=== PATIENT | male | born 1975 | race Caucasian/White ===

== ENCOUNTER 2017-07-28 20:05 | Inpatient (IN) | payer MEDICAID ==
[~2017-07-28] VITALS: Ht 195.6 cm; Wt 109.3 kg
[~2017-07-28 20:05] MED LIST: ALDACTONE50 MG ORAL; AMITRIPTYLINE25 MG ORAL; ATIVAN1 MG ORAL; CLARITIN10 M2 ORAL; CLARITIN5 MG ORAL; FISH OIL500 MG PO; FOLIC ACID1 MG ORAL; IBUPROFEN400 MG ORAL; LASIX20 M1 ORAL; LEVAQUIN500 MG ORAL; MULTIVITAMINS1 EAC2 ORAL; NORCO 10/3251 EA ORAL; NORCO 5-325 TA1 EACH ORAL; PRILOSEC OTC20 MG ORAL; PRILOSEC2.5 MG ORAL; PROCHLORPERAZINE5 MG ORAL; PROTONIX40 MG ORAL; THIAMINE HCL100 MG ORAL; TYLENOL WITH C1 EACH ORAL; VITAMIN B-12100 MCG ORAL; VITAMIN B-12500 MCG ORAL; ZOFRAN4 M1 ORAL
[2017-07-28 20:20] VITALS: BP 129/84
[2017-07-28] MEDS ORDERED: Cefepime HCl 1 GM in NS 55 ML IV STA (20:27)
[2017-07-28] MEDS ORDERED: Vancomycin 1.5gm/D5W 250ml 250 ML IVPB ONE (20:30)
[2017-07-28] MEDS ORDERED: Morphine Sulfate 4mg/ml Inj IVP ONE ×2 (20:30→22:00)
[2017-07-28] MEDS ORDERED: Bacitracin Oint UD TOPIC ONE (20:30)
[2017-07-28] MEDS ORDERED: Tetanus/Diptheria/Pertussis Vaccine 0.5ml Syr IM ONE (20:30)
[2017-07-28] MEDS ORDERED: Cefepime 1gm vial ONE (20:43)
[2017-07-28 21:10] LABS: BASOPHILS % (AUTO) 1.1 % (0.0-2.0); EOSINOPHILS % (AUTO) 1.2 % (0.0-3.0); LYMPHOCYTES % (AUTO) 11.2 % (20.0-45.0); MEAN CORPUSCULAR HEMOGLOBIN 33.7 PG (27.0-31.0); MEAN CORPUSCULAR HGB CONC 34.8 G/DL (32.0-36.0); MEAN CORPUSCULAR VOLUME 97 FL (80-99); MEAN PLATELET VOLUME 8.6 FL (6.5-10.1); MONOCYTES % (AUTO) 4.9 % (1.0-10.0); NEUTROPHILS % (AUTO) 81.6 % (45.0-75.0); PLATELET COUNT 185 K/UL (150-450); RED BLOOD COUNT 4.44 M/UL (4.70-6.10); RED CELL DISTRIBUTION WIDTH 12.6 % (11.6-14.8); WHITE BLOOD COUNT 9.9 K/UL (4.8-10.8)
[2017-07-28 21:15] LABS: APPEARANCE,URINE CLEAR; KETONES,URINE 2+ (NEGATIVE); LEUKOCYTE ESTERASE ,URINE NEGATIVE (NEGATIVE); NITRITE,URINE NEGATIVE (NEGATIVE); PH,URINE 6.5 (4.5-8.0); PROTEIN,URINE NEGATIVE (NEGATIVE); UROBILINOGEN,URINE NORMAL MG/DL (0.0-1.0)
--- NOTE | 2017-07-28 21:18 | Emergency Room Report ---
History of Present Illness General Chief Complaint: Lower Extremity Injury Source: Patient Present Illness HPI The patient presents with 2-3 days of increasing pain and redness and swelling of his right third toe. He states he suffers from peripheral neuropathy. Recently increased walking secondary to his job. Apparently he had blisters that developed several days ago which seemed to be getting better. Then his toe started to hurt and get red. He denies any fevers although he does feel warm. He's felt slightly nauseated with decreased appetite. He denies diabetes. He is uncertain when his last tetanus shot was. Pain usually 5/10. Now pain 7-8/10 of affected toe, burning and aching, radiating to foot. Worse when dependent. There are lesions also of his great toes. The nails have appeared bruised stands on the right-hand side the nails been loose. Is been no drainage. He thought that he might have had a fungal infection and was using an anti-fungal [id number] agents for his nails. He wears compression stockings which also compress toes. No h/o diabetes. Had nerve conduction studies but no nerve biopsy. On gabapentin and vitamins. Also takes tylenol #3 at night due to aching pain of neuropathy. H/O cirrhosis and pancreatitis and prior alcohol abuse. No chest pain, hemoptysis, cough, NVD, dysuria, depression, other joint pain, headache. Tetanus > 10 years. 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 Reviewed Nursing Documentation: PMH: Agreed, PSxH: Agreed Nursing Documentation-PMH Hx Cardiac Problems: Yes - tachycardia Hx Hypertension: Yes Hx Pacemaker: No Hx Asthma: No Hx COPD: No Hx Diabetes: No Hx Cancer: No Hx Gastrointestinal Problems: Yes - pancreatitis 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 Hx Cerebrovascular Accident: No Hx Seizures: No Hx Peripheral Neuropathy: Yes Hx Spinal Cord Injury: Yes - JUL 13, 2012 WORK INJURY Hx Numbness: Yes - BLE Review of Systems All Other Systems: negative except mentioned in HPI Physical Exam Vital Signs Date Time Temp Pulse Resp B/P (MAP) Pulse Ox O2 Delivery O2 Flow Rate FiO2 07/28/17 20:08 99.1 108 20 129/84 98 Room Air Sp02 EP Interpretation: reviewed, normal General Appearance: well appearing, no apparent distress, GCS 15 Head: normocephalic Eyes: bilateral eye normal inspection, bilateral eye PERRL, bilateral eye other - dysconjugate gaze ENT: moist mucus membranes Neck: supple Respiratory: lungs clear, normal breath sounds Cardiovascular #1: regular rate, rhythm Cardiovascular #2: 2+ radial (R), 2+ dorsalis pedis (R), 2+ dorsalis pedis (L) Gastrointestinal: normal inspection, normal bowel sounds, non tender, no mass, non-distended Musculoskeletal: back normal, gait/station normal, normal range of motion, no calf tenderness, inflammation, swelling, tender Neurologic: alert, oriented x3, motor strength/tone normal, sensory deficit - bilateral feet Psychiatric: mood/affect normal Skin: warm/dry, other - erythema of 3rd toe with dorsal ulcer. Superficial ulcer great toe. Subungual hematomata bilateral great toes Medical Decision Making Diagnostic Impression: Primary Impression: Cellulitis of third toe, right Additional Impression: Peripheral neuropathy Qualified Codes: G62.9 - Polyneuropathy, unspecified ER Course Patient presents with painful, red and swollen R 3rd toe. DDx: cellulitis, osteo, gangrene, diabetic ulcer amongst others. Toe looks compromised and severely infected. Emergent evaluation with labs, BC, x ray. Treatment with IV hydration, analgesia and antibiotics covering MRSA and strep. Tetanus given. Xray against osteo. Labs with elevated ESR, normal WBC, glucose and renal function. Improved but still with pain. Repeat analgesia. Concern over appropriate tissue levels of antibiotics and possible overwhelming infection of toe. Patient admitted to [facility] floor, Dr. Cheng for continued antibiotics and podiatric/surgical evaluation. Laboratory Tests Test 07/28/17 20:42 07/28/17 21:00 White Blood Count 9.9 K/UL (4.8-10.8) Red Blood Count 4.44 M/UL (4.70-6.10) L Hemoglobin 14.9 G/DL (14.2-18.0) Hematocrit 42.9 % (42.0-52.0) Mean Corpuscular Volume 97 FL (80-99) Mean Corpuscular Hemoglobin 33.7 PG (27.0-31.0) H Mean Corpuscular Hemoglobin Concent 34.8 G/DL (32.0-36.0) Red Cell Distribution Width 12.6 % (11.6-14.8) Platelet Count 185 K/UL (150-450) Mean Platelet Volume 8.6 FL (6.5-10.1) Neutrophils (%) (Auto) 81.6 % (45.0-75.0) H Lymphocytes (%) (Auto) 11.2 % (20.0-45.0) L Monocytes (%) (Auto) 4.9 % (1.0-10.0) Eosinophils (%) (Auto) 1.2 % (0.0-3.0) Basophils (%) (Auto) 1.1 % (0.0-2.0) Erythrocyte Sedimentation Rate 39 MM/HR (0-15) H Prothrombin Time 10.0 SEC (9.30-11.50) Prothrombin Time INR 1.0 (0.9-1.1) PTT 35 SEC (23-33) H Sodium Level 136 MMOL/L (136-145) Potassium Level 3.9 MMOL/L (3.5-5.1) Chloride Level 98 MMOL/L (98-107) Carbon Dioxide Level 26 MMOL/L (21-32) Anion Gap 12 mmol/L (5-15) Blood Urea Nitrogen 12 mg/dL (7-18) Creatinine 1.1 MG/DL (0.55-1.30) Estimate Glomerular Filtration Rate > 60 mL/min (>60) Glucose Level 77 MG/DL (74-106) Lactic Acid Level 2.00 mmol/L (0.66-2.22) Calcium Level 9.2 MG/DL (8.5-10.1) Total Bilirubin 1.1 MG/DL (0.2-1.0) H Direct Bilirubin 0.2 MG/DL (0.0-0.3) Aspartate Amino Transferase (AST) 28 U/L (15-37) Alanine Aminotransferase (ALT) 51 U/L (12-78) Alkaline Phosphatase 58 U/L (46-116) Total Creatine Kinase 106 U/L (26-308) Troponin I 0.000 ng/mL (0.000-0.056) Total Protein 8.4 G/DL (6.4-8.2) H Albumin 4.0 G/DL (3.4-5.0) Globulin 4.4 g/dL Albumin/Globulin Ratio 0.9 (1.0-2.7) L Urine Color Yellow Urine Appearance Clear Urine pH 6.5 (4.5-8.0) Urine Specific [place] 1.010 (1.005-1.035) Urine Protein Negative (NEGATIVE) Urine Glucose (UA) Negative (NEGATIVE) Urine Ketones 2+ (NEGATIVE) H Urine Occult Blood 2+ (NEGATIVE) H Urine Nitrite Negative (NEGATIVE) Urine Bilirubin Negative (NEGATIVE) Urine Urobilinogen Normal MG/DL (0.0-1.0) Urine Leukocyte Esterase Negative (NEGATIVE) Urine RBC 0-2 /HPF (0 - 0) H Urine WBC 0-2 /HPF (0 - 0) Urine Squamous Epithelial Cells None /LPF (NONE/OCC) Urine Bacteria Occasional /HPF (NONE) EKG Diagnostic Results Rate: normal Rhythm: NSR ST Segments: no acute changes Rhythm Strip Diag. Results EP Interpretation: yes Rhythm: NSR, no PVC's, no ectopy Chest X-Ray Diagnostic Results Chest X-Ray Diagnostic Results : Chest X-Ray Ordered: Yes # of Views/Limited/Complete: 1 View Indication: Other Interpretation: no consolidation, no effusion, no pneumothorax, no acute cardiopulmonary disease Impression: No acute disease Electronically Signed by: Electronically signed by Eduin Lay MD Other X-Ray Diagnostic Results Other X-Ray Diagnostic Results : X-Ray ordered: R foot # of Views/Limited Vs Complete: 3 View Indication: Other Interpretation: no dislocation, no fractures, other - STS, no osteo Impression: Other Electronically Signed by: Electronically signed by Eduin Lay MD Last Vital Signs Date Time Temp Pulse Resp B/P (MAP) Pulse Ox O2 Delivery O2 Flow Rate FiO2 07/29/17 00:00 98.1 93 21 118/70 94 07/28/17 23:29 Room Air Status: improved Disposition: ADMITTED INPATIENT Condition: Serious Referrals: NON PHYSICIAN (PCP) Eduin Lay M.D. Jul 28, 2017 21:18
[2017-07-28 21:24] LABS: ANION GAP 12 mmol/L (5-15); CALCIUM 9.2 MG/DL (8.5-10.1); CARBON DIOXIDE 26 MMOL/L (21-32); CHLORIDE 98 MMOL/L (98-107); CREATININE 1.1 MG/DL (0.55-1.30); GLOMERULAR FILTRATION RATE > 60 mL/min (>60); POTASSIUM 3.9 MMOL/L (3.5-5.1); SODIUM 136 MMOL/L (136-145)
[2017-07-28 21:35] LABS: REFLEX LACTIC ACID YES OR NO YES
[2017-07-28 21:37] LABS: ALANINE AMINOTRANSFERASE 51 U/L (12-78); ALBUMIN/GLOBULIN RATIO 0.9 (1.0-2.7); ASPARTATE AMINO TRANSFERASE 28 U/L (15-37); TOTAL PROTEIN 8.4 G/DL (6.4-8.2)
[2017-07-28 21:38] LABS: BACTERIA,URINE OCCASIONAL /HPF; RBC,URINE 0-2 /HPF (0 - 0); WBC,URINE 0-2 /HPF (0 - 0)
[2017-07-28 21:41] LABS: BILIRUBIN,DIRECT 0.2 MG/DL (0.0-0.3)
[2017-07-28] MEDS ORDERED: Ketorolac 30mg Inj IV ONE (22:00)
[2017-07-28 22:12] LABS: ERYTHROCYTE SEDIMENTATION RATE 39 MM/HR (0-15)
[2017-07-28] MEDS ORDERED: Nitroglycerin Subl 0.4mg tab SL PRN (22:15)
[2017-07-28] MEDS ORDERED: Albuterol/Ipratropium 3ml neb HHN PRN (22:15)
[2017-07-28] MEDS ORDERED: Miralax 17gm pkt ORAL PRN (22:15)
[2017-07-28 22:27] VITALS: BP 147/78
[2017-07-28] MEDS ORDERED: GABAPENTIN100 MG ORAL (22:32)
[2017-07-29] VITALS: BP 118/70
[2017-07-29] MEDS ORDERED: Vancomycin 1 GM in D5W 275 ML IV SCH (00:30)
[2017-07-29] MEDS: Morphine Sulfate 2mg/ml Inj IVP PRN ×4 (00:33→12:47)
[2017-07-29 04:00] VITALS: BP 118/67
[2017-07-29] MEDS ORDERED: Cefepime HCl 2 GM in D5W 110 ML IV SCH (04:00)
[2017-07-29] MEDS ORDERED: Cefepime 2gm ONE (04:45)
[2017-07-29] MEDS: Vancomycin 1250mg/D5W 250ml IVPB SCH ×2 (06:06→14:10)
[2017-07-29 06:54] LABS: ALANINE AMINOTRANSFERASE 41 U/L (12-78); ALBUMIN/GLOBULIN RATIO 0.8 (1.0-2.7); ANION GAP 8 mmol/L (5-15); ASPARTATE AMINO TRANSFERASE 20 U/L (15-37); CALCIUM 8.5 MG/DL (8.5-10.1); CARBON DIOXIDE 29 MMOL/L (21-32); CHLORIDE 101 MMOL/L (98-107); CREATININE 1.1 MG/DL (0.55-1.30); GLOMERULAR FILTRATION RATE > 60 mL/min (>60); POTASSIUM 4.1 MMOL/L (3.5-5.1); SODIUM 137 MMOL/L (136-145); TOTAL PROTEIN 7.1 G/DL (6.4-8.2)
[2017-07-29 07:06] LABS: BASOPHILS % (AUTO) 0.8 % (0.0-2.0); EOSINOPHILS % (AUTO) 2.6 % (0.0-3.0); LYMPHOCYTES % (AUTO) 10.7 % (20.0-45.0); MEAN CORPUSCULAR HGB CONC 33.1 G/DL (32.0-36.0); MEAN CORPUSCULAR VOLUME 97 FL (80-99); MEAN PLATELET VOLUME 7.2 FL (6.5-10.1); MONOCYTES % (AUTO) 5.6 % (1.0-10.0); NEUTROPHILS % (AUTO) 80.3 % (45.0-75.0); PLATELET COUNT 159 K/UL (150-450); RED BLOOD COUNT 3.93 M/UL (4.70-6.10); RED CELL DISTRIBUTION WIDTH 12.4 % (11.6-14.8); WHITE BLOOD COUNT 6.8 K/UL (4.8-10.8)
[2017-07-29 08:00] VITALS: BP 125/70
[2017-07-29] MEDS ORDERED: Spironolactone 50mg tab ORAL SCH (09:00)
[2017-07-29] MEDS ORDERED: Heparin 5000 units/ml inj SUBQ SCH (09:00)
[2017-07-29] MEDS ORDERED: Flu Vaccine Quadrivalent 0.5ml IM ONE (09:00)
[2017-07-29 12:06] VITALS: BP 116/74
--- NOTE | 2017-07-29 13:11 | Diagnostic Imaging Report ---
Indication: Chest pain Technique: One view of the chest Comparison: none Findings: Lungs and pleural spaces are clear. Heart size is normal Impression: No acute process This agrees with the preliminary interpretation provided by the emergency room physician
--- NOTE | 2017-07-29 13:46 | Consultation ---
History of Present Illness General Date patient seen: Jul 29, 2017 Time patient seen: 13:36 Chief Complaint: Lower Extremity Injury Present Illness HPI 42 y/o M with hx of ETOH cirrhosis and pancreatitis (now quit alcohol), tobacco abuse, HTN, autonomic peripheral neuropathy presents to ED on 07/28 with 2-3 days of increasing pain, redness and swelling of R 3rd toe. Has recently been walking more because of work and developed blisters several days ago, then noticed toe to be painful and red. +warm Denies f/c. +nausea, decrease appetite. Denies hx of DM. He was using overt he counter antifungal agents as he thought he had a fungal infection No chest pain, hemoptysis, cough, NVD, dysuria, depression, other joint pain, headache. Tetanus > 10 years. Allergies: Coded Allergies: Cat Dander (Unverified Allergy, Unknown, Itching, 03/23/15) Uncoded Allergies: LACTOSE INTOLERANCE (Adverse Reaction, Severe, 06/05/14) FORMATION OF GAS Medication History Scheduled Cyanocobalamin (Vitamin B-12)* (Vitamin B-12*), 500 MCG ORAL DAILY, (Reported) Folic Acid* (Folic Acid*), 1 MG ORAL DAILY Furosemide* (Lasix*), 20 MG ORAL DAILY Gabapentin* (Gabapentin*), 100 MG ORAL THREE TIMES A DAY, (Reported) Loratadine (Claritin), 10 MG ORAL DAILY, (Reported) Lorazepam* (Ativan*), 1 MG ORAL EVERY 4 HOURS, (Reported) Multivitamins* (Multivitamins*), 1 TAB ORAL DAILY, (Reported) Pantoprazole* (Protonix*), 40 MG ORAL DAILY Prochlorperazine Maleate* (Compazine*), Unknown Dose ORAL TID, (Reported) Spironolactone (Aldactone), 100 MG ORAL DAILY Thiamine Hcl (Vitamin B1*), 100 MG ORAL DAILY Scheduled PRN Acetaminophen With Codeine 300MG/30MG (T#3)* (Tylenol With Codeine #3 Tablet*), 1 TAB ORAL EVERY 6 HOURS PRN for For Pain Patient History Healthcare decision maker N Resuscitation status Full Code Advanced Directive on File Patient History Narrative Pmhx as above 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 : smoking, alcohol use - prior stop 2014, drug use - thc Fhx non contributory Review of Systems All Other Systems: negative except mentioned in HPI Physical Exam Physical Exam Narrative General Appearance: well appearing, no apparent distress HEENT normocephalic, bilateral eye PERRL, moist mucus membranes Neck: supple Respiratory: lungs clear, normal breath sounds Cardiovascular : regular rate, rhythm Gastrointestinal: normal inspection, normal bowel sounds, non tender, no mass, non-distended Musculoskeletal: back normal, gait/station normal, normal range of motion, no calf tenderness, inflammation, swelling, tender Neurologic: alert, oriented x3, motor strength/tone normal, sensory deficit - bilateral feet Skin: warm/dry, other - erythema of R 3rd toe with dorsal ulcer with significant swelling and erythema, purulent discharge. Superficial ulcer R great toe. Subungual hematomata bilateral great toes, onycomycosis L>R great toe Last 24 Hour Vital Signs Date Time Temp Pulse Resp B/P (MAP) Pulse Ox O2 Delivery O2 Flow Rate FiO2 07/29/17 12:06 98.2 80 21 116/74 96 Room Air 07/29/17 10:29 82 16 Room Air 07/29/17 08:00 98.2 89 18 125/70 94 Room Air 07/29/17 04:00 98.2 82 18 118/67 97 07/29/17 00:00 98.1 93 21 118/70 94 07/28/17 23:29 99.1 99 18 147/78 98 Room Air 07/28/17 22:27 99.1 99 18 147/78 98 Room Air 07/28/17 20:20 99.1 108 20 129/84 98 Room Air 07/28/17 20:08 99.1 108 20 129/84 98 Room Air Laboratory Tests Test 07/28/17 20:42 07/28/17 21:00 07/29/17 05:25 White Blood Count 9.9 K/UL (4.8-10.8) 6.8 K/UL (4.8-10.8) Red Blood Count 4.44 M/UL (4.70-6.10) L 3.93 M/UL (4.70-6.10) L Hemoglobin 14.9 G/DL (14.2-18.0) 12.6 G/DL (14.2-18.0) L Hematocrit 42.9 % (42.0-52.0) 38.1 % (42.0-52.0) L Mean Corpuscular Volume 97 FL (80-99) 97 FL (80-99) Mean Corpuscular Hemoglobin 33.7 PG (27.0-31.0) H 32.0 PG (27.0-31.0) H Mean Corpuscular Hemoglobin Concent 34.8 G/DL (32.0-36.0) 33.1 G/DL (32.0-36.0) Red Cell Distribution Width 12.6 % (11.6-14.8) 12.4 % (11.6-14.8) Platelet Count 185 K/UL (150-450) 159 K/UL (150-450) Mean Platelet Volume 8.6 FL (6.5-10.1) 7.2 FL (6.5-10.1) Neutrophils (%) (Auto) 81.6 % (45.0-75.0) H 80.3 % (45.0-75.0) H Lymphocytes (%) (Auto) 11.2 % (20.0-45.0) L 10.7 % (20.0-45.0) L Monocytes (%) (Auto) 4.9 % (1.0-10.0) 5.6 % (1.0-10.0) Eosinophils (%) (Auto) 1.2 % (0.0-3.0) 2.6 % (0.0-3.0) Basophils (%) (Auto) 1.1 % (0.0-2.0) 0.8 % (0.0-2.0) Erythrocyte Sedimentation Rate 39 MM/HR (0-15) H Prothrombin Time 10.0 SEC (9.30-11.50) Prothromb Time International Ratio 1.0 (0.9-1.1) Activated Partial Thromboplast Time 35 SEC (23-33) H Sodium Level 136 MMOL/L (136-145) 137 MMOL/L (136-145) Potassium Level 3.9 MMOL/L (3.5-5.1) 4.1 MMOL/L (3.5-5.1) Chloride Level 98 MMOL/L (98-107) 101 MMOL/L (98-107) Carbon Dioxide Level 26 MMOL/L (21-32) 29 MMOL/L (21-32) Anion Gap 12 mmol/L (5-15) 8 mmol/L (5-15) Blood Urea Nitrogen 12 mg/dL (7-18) 11 mg/dL (7-18) Creatinine 1.1 MG/DL (0.55-1.30) 1.1 MG/DL (0.55-1.30) Estimat Glomerular Filtration Rate > 60 mL/min (>60) > 60 mL/min (>60) Glucose Level 77 MG/DL (74-106) 99 MG/DL (74-106) Lactic Acid Level 2.00 mmol/L (0.66-2.22) Calcium Level 9.2 MG/DL (8.5-10.1) 8.5 MG/DL (8.5-10.1) Total Bilirubin 1.1 MG/DL (0.2-1.0) H 0.9 MG/DL (0.2-1.0) Direct Bilirubin 0.2 MG/DL (0.0-0.3) Aspartate Amino Transf (AST/SGOT) 28 U/L (15-37) 20 U/L (15-37) Alanine Aminotransferase (ALT/SGPT) 51 U/L (12-78) 41 U/L (12-78) Alkaline Phosphatase 58 U/L (46-116) 47 U/L (46-116) Total Creatine Kinase 106 U/L (26-308) Troponin I 0.000 ng/mL (0.000-0.056) Total Protein 8.4 G/DL (6.4-8.2) H 7.1 G/DL (6.4-8.2) Albumin 4.0 G/DL (3.4-5.0) 3.2 G/DL (3.4-5.0) L Globulin 4.4 g/dL 3.9 g/dL Albumin/Globulin Ratio 0.9 (1.0-2.7) L 0.8 (1.0-2.7) L Urine Color Yellow Urine Appearance Clear Urine pH 6.5 (4.5-8.0) Urine Specific [place] 1.010 (1.005-1.035) Urine Protein Negative (NEGATIVE) Urine Glucose (UA) Negative (NEGATIVE) Urine Ketones 2+ (NEGATIVE) H Urine Occult Blood 2+ (NEGATIVE) H Urine Nitrite Negative (NEGATIVE) Urine Bilirubin Negative (NEGATIVE) Urine Urobilinogen Normal MG/DL (0.0-1.0) Urine Leukocyte Esterase Negative (NEGATIVE) Urine RBC 0-2 /HPF (0 - 0) H Urine WBC 0-2 /HPF (0 - 0) Urine Squamous Epithelial Cells None /LPF (NONE/OCC) Urine Bacteria Occasional /HPF (NONE) Microbiology Date/Time Source Procedure Growth Status 07/28/17 21:20 Foot Right Gram Stain - Final Resulted 07/28/17 21:20 Foot Right Wound Culture Pending Resulted Height (Feet): 6 Height (Inches): 5.00 Weight (Pounds): 241 Medications Current Medications Medications (Trade) Dose Ordered Sig/Fiona Route PRN Reason Start Time Stop Time Status Last Admin Dose Admin Acetaminophen (Tylenol) 650 mg Q4H PRN ORAL fever 07/28/17 22:15 08/27/17 22:14 Albuterol/ Ipratropium (Albuterol/ Ipratropium) 3 ml Q4H PRN HHN Shortness of Breath 07/28/17 22:15 08/02/17 22:14 Cefepime HCl 2 gm/ Dextrose 55 ml @ 110 mls/hr Q12H IV 07/29/17 16:00 08/05/17 03:59 Dextrose (Dextrose 50%) STAT PRN IV Hypoglycemia 07/28/17 22:15 08/27/17 22:14 Folic Acid (Folate) 1 mg DAILY ORAL 07/29/17 14:00 08/28/17 13:59 Gabapentin (Neurontin) 100 mg THREE TIMES A DAY ORAL 07/29/17 13:00 08/28/17 12:59 Heparin Sodium (Porcine) (Heparin 5000 units/ml) 5,000 units EVERY 12 HOURS SUBQ 07/29/17 09:00 08/28/17 08:59 07/29/17 08:21 Morphine Sulfate (Morphine Sulfate) 2 mg Q4H PRN IVP Moderate Pain (Pain Scale 4-6) 07/28/17 22:15 08/04/17 22:14 07/29/17 12:47 Nitroglycerin (Ntg) 0.4 mg Every 5 Minutes PRN SL Prn Chest Pain 07/28/17 22:15 08/27/17 22:14 Ondansetron HCl (Zofran) 4 mg Q6H PRN IVP Nausea & Vomiting 07/28/17 22:15 08/27/17 22:14 Polyethylene Glycol (Miralax) 17 gm DAILYPRN PRN ORAL Constipation 07/28/17 22:15 08/27/17 22:14 Spironolactone (Aldactone) 100 mg DAILY ORAL 07/29/17 09:00 08/28/17 08:59 07/29/17 08:15 Temazepam (Restoril) 15 mg HSPRN PRN ORAL Insomnia 07/28/17 22:15 08/04/17 22:14 Thiamine HCl (Vitamin B1) 100 mg DAILY ORAL 07/29/17 14:00 08/28/17 13:59 Vancomycin HCl (Vanco rx to dose) 1 ea DAILY PRN MISC Per Pharmacy Dosing Protocol 07/28/17 23:00 08/27/17 22:59 Vancomycin HCl/ Dextrose 250 ml @ 166.667 mls/hr Q8HR IVPB 07/29/17 06:00 08/03/17 05:59 07/29/17 06:06 Assessment/Plan Assessment/Plan Abx: IV Vanco 07/28- CEfepime 07/28- Assesment: R 3rd toe ulcer w/ infection with possible underlying abscess -Xray R foot: Third toe soft tissue swelling, likely related to stated clinical history of infection. No plain radiographic evidence of osteomyelitis -afebrile, no leukocytosis -Wound cx: stain rare GPC, cx p Peripheral neuropathy Etoh Cirrhosis HTN TObacco abuse hx of pancreatitis s/p CXR: : no acute process Plan: -COntnue IV Vancomycin and switch Cefepime to Zosyn pending wound cx -Podiatry evaluation -Discussed with patient- he has a planned work trip to [place] tomorrow. I advised patient against going as infection can get worse and he is at risk of loosing toe. He may still go. If he decides to go AMA, he can be sent with Rx for Bactrim DS 2 tab bid and Augmentin 875/125mg bid for 14 days. -wound care -f/u cx -monitor CBC/BMP, temperatures Thank you for this consultation. Will continue to follow along with you. Discussed with RN and Gris Sandhu M.D. Jul 29, 2017 13:46
[2017-07-29] MEDS ORDERED: Thiamine 100mg tab ORAL SCH (14:00)
--- NOTE | 2017-07-29 14:19 | Diagnostic Imaging Report ---
Indication: Infection of middle to Technique: 3 views right foot Comparison: none Findings: There is marked soft tissue swelling of the third middle phalanx. No definite underlying osseous destructive change, erosion, osteolytic process, or unusual periosteal reaction. No definite soft tissue gas. No acute fractures. No dislocations. Joint spaces are preserved. There is a small plantar spur Impression: Third toe soft tissue swelling, likely related to stated clinical history of infection No plain radiographic evidence of osteomyelitis. Note, however, limited sensitivity of plain radiographs for such. Consider bone scan or MRI for further evaluation if there is high clinical suspicion
--- NOTE | 2017-07-29 15:11 | Wound Care Consultation ---
Wound Assessment Wound Assessment #1: Wound Number: 1 Wound Present on Admission: Yes New Wound: No Status Change of Wound: No Wound Location Body Site Modif: left Wound Location Body Site: toe - 1st Wound Type: pressure ulcer Maximiliano Test: Does not Maximilaino Pressure Ulcer Stage: Deep Tissue Injury Wound Thickness: Full Thickness Wound Length: 2.0 Wound Width: 2.0 Wound Depth: utd Percent of Wound Purple/Maroon: 100 Wound Drainage Amount: None Wound Drainage Odor: None/Absent Tissue Surrounding Wound: Intact Wound General Appearance: Reddened - maroon Wound Assessment #2: Wound Number: 2 Wound Present on Admission: Yes New Wound: No Status Change of Wound: No Wound Location Body Site Modif: left, lateral Wound Location Body Site: toe - 2nd Wound Type: other - callus like formation Maximiliano Test: Does not Maximiliano Wound Length: 1.0 Wound Width: 1.0 Wound Depth: utd Percent of Wound [place]/Red: 50 Percent of Wound Bed Yellow/Wh: 50 Wound Drainage Amount: None Wound Drainage Odor: None/Absent Tissue Surrounding Wound: Intact Wound General Appearance: Open to air Wound Assessment #3: Wound Number: 3 Wound Present on Admission: Yes New Wound: No Status Change of Wound: No Wound Location Body Site Modif: right, anterior Wound Location Body Site: toe - 3rd Wound Type: other - open wound with cellulitis per patient had developed blister. Maximiliano Test: Does not Maximiliano Wound Thickness: Full Thickness Wound Length: 1.5 Wound Width: 1.5 Wound Depth: utd Percent of Wound [place]/Red: 50 Percent of Wound Bed Yellow/Wh: 50 Wound Drainage Description: Serosanguineous Wound Drainage Amount: Moderate Wound Drainage Odor: None/Absent Tissue Surrounding Wound: Erythemic - with swelling Wound General Appearance: Reddened, Draining Wound Assessment #4: Wound Number: 4 Wound Present on Admission: Yes New Wound: No Status Change of Wound: No Wound Location Body Site Modif: right Wound Location Body Site: toe - 1st toe Wound Type: pressure ulcer Maximiliano Test: Does not Maximiliano Pressure Ulcer Stage: Deep Tissue Injury - ruptured deep tissue injury per patient has been self treating noted site with open area but scab forming Wound Thickness: Full Thickness Wound Length: 2.0 Wound Width: 2.0 Wound Depth: utd Percent of Wound Purple/Maroon: 100 Other Colors Identified: noted appearing scab formation Wound Drainage Amount: None Wound Drainage Odor: None/Absent Tissue Surrounding Wound: Erythemic - maroon Wound General Appearance: Reddened Wound Assessment #5: Wound Number: 5 Wound Present on Admission: Yes New Wound: No Status Change of Wound: No Wound Location Body Site Modif: right, plantar Wound Location Body Site: toe - 1st Wound Type: blister - per patient had blister to site,self treated, noted callus like formation intact to site,dry Maximiliano Test: Does not Maximiliano Wound Length: 1.0 Wound Width: 1.0 Percent of Wound Bed Yellow/Wh: 100 - [place]/yellow color dry Wound Drainage Amount: None Wound Drainage Odor: None/Absent Tissue Surrounding Wound: Intact Wound General Appearance: Clean/Dry Wound Assessment #6: Wound Number: 6 Wound Present on Admission: Yes New Wound: No Status Change of Wound: No Wound Location Body Site Modif: right, medial Wound Location Body Site: toe - 2nd Wound Type: pressure ulcer Maximiliano Test: Does not Maximiliano Pressure Ulcer Stage: Deep Tissue Injury Wound Thickness: Full Thickness Wound Length: 1.0 Wound Width: 1.0 Wound Depth: utd Percent of Wound Purple/Maroon: 100 Wound Drainage Amount: None Wound Drainage Odor: None/Absent Tissue Surrounding Wound: Erythemic Wound General Appearance: Reddened - maroon Wound Comment #1 Left foot first toe Deep tissue injury. #2 Left 2nd toe callus formation #3 Right 3rd toe open wound with cellulitis. #4 Right foot 1st toe ruptured deep tissue injury. #5 Right planter 1st toe resolving blister with callus formation, dry. #6 Right 2nd toe deep tissue injury. Recommendation. -FOLLOW UP WITH MD FOR PODIATRY CONSULT. -Local wound care as ordered. -Turn and reposition. -Offload affected sites, -encourage and remind patient to avoid friction or pressure to sites. -Optimize nutrition. -Keep clean and dry. -Assess and notify MD for any further change of condition noted to skin. TIERNEY BROOKS Jul 29, 2017 15:10
[2017-07-29] MEDS ORDERED: Cefepime HCl 2 GM in D5W 55 ML IV SCH (16:00)
--- NOTE | 2017-07-29 16:24 | History and Physical ---
History of Present Illness General Date patient seen: Jul 28, 2017 Reason for Hospitalization: Lower Extremity Injury Present Illness HPI 42 year old male with hx of ETOH abuse, peripheral neuropathy. presented with CC of 2-3 days of increasing pain and redness and swelling of his right third toe. he had blisters that developed several days ago which seemed to be getting better. There are lesions also of his great toes. The nails have appeared bruised stands on the right-hand side the nails been loose. He is admitted for cellulitis of his toe. Allergies: Coded Allergies: Cat Dander (Unverified Allergy, Unknown, Itching, 03/23/15) Uncoded Allergies: LACTOSE INTOLERANCE (Adverse Reaction, Severe, 06/05/14) FORMATION OF GAS Medication History Scheduled Cyanocobalamin (Vitamin B-12)* (Vitamin B-12*), 500 MCG ORAL DAILY, (Reported) Folic Acid* (Folic Acid*), 1 MG ORAL DAILY Furosemide* (Lasix*), 20 MG ORAL DAILY Gabapentin* (Gabapentin*), 100 MG ORAL THREE TIMES A DAY, (Reported) Loratadine (Claritin), 10 MG ORAL DAILY, (Reported) Lorazepam* (Ativan*), 1 MG ORAL EVERY 4 HOURS, (Reported) Multivitamins* (Multivitamins*), 1 TAB ORAL DAILY, (Reported) Pantoprazole* (Protonix*), 40 MG ORAL DAILY Prochlorperazine Maleate* (Compazine*), Unknown Dose ORAL TID, (Reported) Spironolactone (Aldactone), 100 MG ORAL DAILY Thiamine Hcl (Vitamin B1*), 100 MG ORAL DAILY Scheduled PRN Acetaminophen With Codeine 300MG/30MG (T#3)* (Tylenol With Codeine #3 Tablet*), 1 TAB ORAL EVERY 6 HOURS PRN for For Pain Patient History Healthcare decision maker N Resuscitation status Full Code Advanced Directive on File Past Medical/Surgical History Past Medical/Surgical History: (1) Peripheral neuropathy (2) Cyclic vomiting syndrome Review of Systems All Other Systems: negative except mentioned in HPI Physical Exam General Appearance: WD/WN Lines, tubes and drains: peripheral, PICC HEENT: normocephalic Neck: non-tender Respiratory/Chest: chest wall non-tender, lungs clear Cardiovascular/Chest: normal peripheral pulses, normal rate Abdomen: normal bowel sounds, non tender Genitourinary/Rectal: normal genital exam, normal rectal exam Extremities: non-tender, normal inspection Neurologic: doctor of optometry II-XII grossly normal Last 24 Hour Vital Signs Date Time Temp Pulse Resp B/P (MAP) Pulse Ox O2 Delivery O2 Flow Rate FiO2 07/29/17 12:06 98.2 80 21 116/74 96 Room Air 07/29/17 10:29 82 16 Room Air 07/29/17 08:00 98.2 89 18 125/70 94 Room Air 07/29/17 04:00 98.2 82 18 118/67 97 07/29/17 00:00 98.1 93 21 118/70 94 07/28/17 23:29 99.1 99 18 147/78 98 Room Air 07/28/17 22:27 99.1 99 18 147/78 98 Room Air 07/28/17 20:20 99.1 108 20 129/84 98 Room Air 07/28/17 20:08 99.1 108 20 129/84 98 Room Air Intake and Output 07/29/17 07/30/17 19:00 07:00 Intake Total 240 ml Balance 240 ml Intake Oral 240 ml Laboratory Tests Test 07/28/17 20:42 07/28/17 21:00 07/29/17 05:25 White Blood Count 9.9 K/UL (4.8-10.8) 6.8 K/UL (4.8-10.8) Red Blood Count 4.44 M/UL (4.70-6.10) L 3.93 M/UL (4.70-6.10) L Hemoglobin 14.9 G/DL (14.2-18.0) 12.6 G/DL (14.2-18.0) L Hematocrit 42.9 % (42.0-52.0) 38.1 % (42.0-52.0) L Mean Corpuscular Volume 97 FL (80-99) 97 FL (80-99) Mean Corpuscular Hemoglobin 33.7 PG (27.0-31.0) H 32.0 PG (27.0-31.0) H Mean Corpuscular Hemoglobin Concent 34.8 G/DL (32.0-36.0) 33.1 G/DL (32.0-36.0) Red Cell Distribution Width 12.6 % (11.6-14.8) 12.4 % (11.6-14.8) Platelet Count 185 K/UL (150-450) 159 K/UL (150-450) Mean Platelet Volume 8.6 FL (6.5-10.1) 7.2 FL (6.5-10.1) Neutrophils (%) (Auto) 81.6 % (45.0-75.0) H 80.3 % (45.0-75.0) H Lymphocytes (%) (Auto) 11.2 % (20.0-45.0) L 10.7 % (20.0-45.0) L Monocytes (%) (Auto) 4.9 % (1.0-10.0) 5.6 % (1.0-10.0) Eosinophils (%) (Auto) 1.2 % (0.0-3.0) 2.6 % (0.0-3.0) Basophils (%) (Auto) 1.1 % (0.0-2.0) 0.8 % (0.0-2.0) Erythrocyte Sedimentation Rate 39 MM/HR (0-15) H Prothrombin Time 10.0 SEC (9.30-11.50) Prothromb Time International Ratio 1.0 (0.9-1.1) Activated Partial Thromboplast Time 35 SEC (23-33) H Sodium Level 136 MMOL/L (136-145) 137 MMOL/L (136-145) Potassium Level 3.9 MMOL/L (3.5-5.1) 4.1 MMOL/L (3.5-5.1) Chloride Level 98 MMOL/L (98-107) 101 MMOL/L (98-107) Carbon Dioxide Level 26 MMOL/L (21-32) 29 MMOL/L (21-32) Anion Gap 12 mmol/L (5-15) 8 mmol/L (5-15) Blood Urea Nitrogen 12 mg/dL (7-18) 11 mg/dL (7-18) Creatinine 1.1 MG/DL (0.55-1.30) 1.1 MG/DL (0.55-1.30) Estimat Glomerular Filtration Rate > 60 mL/min (>60) > 60 mL/min (>60) Glucose Level 77 MG/DL (74-106) 99 MG/DL (74-106) Lactic Acid Level 2.00 mmol/L (0.66-2.22) Calcium Level 9.2 MG/DL (8.5-10.1) 8.5 MG/DL (8.5-10.1) Total Bilirubin 1.1 MG/DL (0.2-1.0) H 0.9 MG/DL (0.2-1.0) Direct Bilirubin 0.2 MG/DL (0.0-0.3) Aspartate Amino Transf (AST/SGOT) 28 U/L (15-37) 20 U/L (15-37) Alanine Aminotransferase (ALT/SGPT) 51 U/L (12-78) 41 U/L (12-78) Alkaline Phosphatase 58 U/L (46-116) 47 U/L (46-116) Total Creatine Kinase 106 U/L (26-308) Troponin I 0.000 ng/mL (0.000-0.056) Total Protein 8.4 G/DL (6.4-8.2) H 7.1 G/DL (6.4-8.2) Albumin 4.0 G/DL (3.4-5.0) 3.2 G/DL (3.4-5.0) L Globulin 4.4 g/dL 3.9 g/dL Albumin/Globulin Ratio 0.9 (1.0-2.7) L 0.8 (1.0-2.7) L Urine Color Yellow Urine Appearance Clear Urine pH 6.5 (4.5-8.0) Urine Specific [place] 1.010 (1.005-1.035) Urine Protein Negative (NEGATIVE) Urine Glucose (UA) Negative (NEGATIVE) Urine Ketones 2+ (NEGATIVE) H Urine Occult Blood 2+ (NEGATIVE) H Urine Nitrite Negative (NEGATIVE) Urine Bilirubin Negative (NEGATIVE) Urine Urobilinogen Normal MG/DL (0.0-1.0) Urine Leukocyte Esterase Negative (NEGATIVE) Urine RBC 0-2 /HPF (0 - 0) H Urine WBC 0-2 /HPF (0 - 0) Urine Squamous Epithelial Cells None /LPF (NONE/OCC) Urine Bacteria Occasional /HPF (NONE) Microbiology Date/Time Source Procedure Growth Status 07/28/17 21:20 Foot Right Gram Stain - Final Resulted 07/28/17 21:20 Foot Right Wound Culture Pending Resulted Height (Feet): 6 Height (Inches): 5.00 Weight (Pounds): 241 Medications Current Medications Medications (Trade) Dose Ordered Sig/Fiona Route PRN Reason Start Time Stop Time Status Last Admin Dose Admin Acetaminophen (Tylenol) 650 mg Q4H PRN ORAL fever 07/28/17 22:15 08/27/17 22:14 Albuterol/ Ipratropium (Albuterol/ Ipratropium) 3 ml Q4H PRN HHN Shortness of Breath 07/28/17 22:15 08/02/17 22:14 Cefepime HCl 2 gm/ Dextrose 55 ml @ 110 mls/hr Q12H IV 07/29/17 16:00 08/05/17 03:59 Dextrose (Dextrose 50%) STAT PRN IV Hypoglycemia 07/28/17 22:15 08/27/17 22:14 Folic Acid (Folate) 1 mg DAILY ORAL 07/29/17 14:00 08/28/17 13:59 07/29/17 14:07 Gabapentin (Neurontin) 100 mg THREE TIMES A DAY ORAL 07/29/17 13:00 08/28/17 12:59 07/29/17 14:06 Heparin Sodium (Porcine) (Heparin 5000 units/ml) 5,000 units EVERY 12 HOURS SUBQ 07/29/17 09:00 08/28/17 08:59 07/29/17 08:21 Morphine Sulfate (Morphine Sulfate) 2 mg Q4H PRN IVP Moderate Pain (Pain Scale 4-6) 07/28/17 22:15 08/04/17 22:14 07/29/17 12:47 Nitroglycerin (Ntg) 0.4 mg Every 5 Minutes PRN SL Prn Chest Pain 07/28/17 22:15 08/27/17 22:14 Ondansetron HCl (Zofran) 4 mg Q6H PRN IVP Nausea & Vomiting 07/28/17 22:15 08/27/17 22:14 Polyethylene Glycol (Miralax) 17 gm DAILYPRN PRN ORAL Constipation 07/28/17 22:15 08/27/17 22:14 Spironolactone (Aldactone) 100 mg DAILY ORAL 07/29/17 09:00 08/28/17 08:59 07/29/17 08:15 Temazepam (Restoril) 15 mg HSPRN PRN ORAL Insomnia 07/28/17 22:15 08/04/17 22:14 Thiamine HCl (Vitamin B1) 100 mg DAILY ORAL 07/29/17 14:00 08/28/17 13:59 07/29/17 14:07 Vancomycin HCl (Vanco rx to dose) 1 ea DAILY PRN MISC Per Pharmacy Dosing Protocol 07/28/17 23:00 08/27/17 22:59 Vancomycin HCl/ Dextrose 250 ml @ 166.667 mls/hr Q8HR IVPB 07/29/17 06:00 08/03/17 05:59 07/29/17 14:10 Assessment/Plan Problem List: (1) Cellulitis of third toe, right ICD Codes: L03.031 - Cellulitis of right toe SNOMED: [id number] (2) Peripheral neuropathy ICD Codes: G62.9 - Polyneuropathy, unspecified SNOMED: [id number] Qualifiers: Qualified Codes: G62.9 - Polyneuropathy, unspecified Assessment/Plan IV abx wound care ID evaluation JAYCEE SANZ Jul 29, 2017 16:24
--- NOTE | 2017-07-29 16:25 | Pulmonology Progress Note ---
Assessment/Plan Problems: (1) Cellulitis of third toe, right (2) Peripheral neuropathy Assessment/Plan getting better pt is adamant that he has to live for a business trip tomorrow will dc with oral abx and close f/u after he returns from his trip Subjective ROS Limited/Unobtainable: No Constitutional: Reports: no symptoms Respiratory: Reports: no symptoms Allergies: Coded Allergies: Cat Dander (Unverified Allergy, Unknown, Itching, 03/23/15) Uncoded Allergies: LACTOSE INTOLERANCE (Adverse Reaction, Severe, 06/05/14) FORMATION OF GAS Objective Last 24 Hour Vital Signs Date Time Temp Pulse Resp B/P (MAP) Pulse Ox O2 Delivery O2 Flow Rate FiO2 07/29/17 12:06 98.2 80 21 116/74 96 Room Air 07/29/17 10:29 82 16 Room Air 07/29/17 08:00 98.2 89 18 125/70 94 Room Air 07/29/17 04:00 98.2 82 18 118/67 97 07/29/17 00:00 98.1 93 21 118/70 94 07/28/17 23:29 99.1 99 18 147/78 98 Room Air 07/28/17 22:27 99.1 99 18 147/78 98 Room Air 07/28/17 20:20 99.1 108 20 129/84 98 Room Air 07/28/17 20:08 99.1 108 20 129/84 98 Room Air Intake and Output 07/29/17 07/30/17 19:00 07:00 Intake Total 240 ml Balance 240 ml Intake Oral 240 ml General Appearance: WD/WN HEENT: normocephalic, atraumatic Respiratory/Chest: chest wall non-tender, lungs clear Cardiovascular: normal peripheral pulses, normal rate Abdomen: normal bowel sounds, soft, non tender Genitourinary: normal external genitalia Skin: no rash Microbiology Date/Time Source Procedure Growth Status 07/28/17 21:20 Foot Right Gram Stain - Final Resulted 07/28/17 21:20 Foot Right Wound Culture Pending Resulted Laboratory Tests 07/28/17 20:42: White Blood Count 9.9, Red Blood Count 4.44L, Hemoglobin 14.9, Hematocrit 42.9, Mean Corpuscular Volume 97, Mean Corpuscular Hemoglobin 33.7H, Mean Corpuscular Hemoglobin Concent 34.8, Red Cell Distribution Width 12.6, Platelet Count 185, Mean Platelet Volume 8.6, Neutrophils (%) (Auto) 81.6H, Lymphocytes (%) (Auto) 11.2L, Monocytes (%) (Auto) 4.9, Eosinophils (%) (Auto) 1.2, Basophils (%) (Auto ) 1.1, Erythrocyte Sedimentation Rate 39H, Prothrombin Time 10.0, Prothromb Time International Ratio 1.0, Activated Partial Thromboplast Time 35H, Sodium Level 136, Potassium Level 3.9, Chloride Level 98, Carbon Dioxide Level 26, Anion Gap 12, Blood Urea Nitrogen 12, Creatinine 1.1, Estimat Glomerular Filtration Rate > 60, Glucose Level 77, Lactic Acid Level 2.00, Calcium Level 9.2, Total Bilirubin 1.1H, Direct Bilirubin 0.2, Aspartate Amino Transf (AST/ SGOT) 28, Alanine Aminotransferase (ALT/SGPT) 51, Alkaline Phosphatase 58, Total Creatine Kinase 106, Troponin I 0.000, Total Protein 8.4H, Albumin 4.0, Globulin 4.4, Albumin/Globulin Ratio 0.9L 07/28/17 21:00: Urine Color Yellow, Urine Appearance Clear, Urine pH 6.5, Urine Specific [place] 1.010, Urine Protein Negative, Urine Glucose (UA) Negative, Urine Ketones 2+H, Urine Occult Blood 2+H, Urine Nitrite Negative, Urine Bilirubin Negative, Urine Urobilinogen Normal, Urine Leukocyte Esterase Negative, Urine RBC 0-2H, Urine WBC 0-2, Urine Squamous Epithelial Cells None, Urine Bacteria Occasional 07/29/17 05:25: White Blood Count 6.8, Red Blood Count 3.93L, Hemoglobin 12.6L, Hematocrit 38.1L , Mean Corpuscular Volume 97, Mean Corpuscular Hemoglobin 32.0H, Mean Corpuscular Hemoglobin Concent 33.1, Red Cell Distribution Width 12.4, Platelet Count 159, Mean Platelet Volume 7.2, Neutrophils (%) (Auto) 80.3H, Lymphocytes ( %) (Auto) 10.7L, Monocytes (%) (Auto) 5.6, Eosinophils (%) (Auto) 2.6, Basophils (%) (Auto) 0.8, Sodium Level 137, Potassium Level 4.1, Chloride Level 101, Carbon Dioxide Level 29, Anion Gap 8, Blood Urea Nitrogen 11, Creatinine 1.1, Estimat Glomerular Filtration Rate > 60, Glucose Level 99, Calcium Level 8.5, Total Bilirubin 0.9, Aspartate Amino Transf (AST/SGOT) 20, Alanine Aminotransferase (ALT/SGPT) 41, Alkaline Phosphatase 47, Total Protein 7.1, Albumin 3.2L, Globulin 3.9, Albumin/Globulin Ratio 0.8L Current Medications Medications (Trade) Dose Ordered Sig/Fiona Route PRN Reason Start Time Stop Time Status Last Admin Dose Admin Acetaminophen (Tylenol) 650 mg Q4H PRN ORAL fever 07/28/17 22:15 08/27/17 22:14 Albuterol/ Ipratropium (Albuterol/ Ipratropium) 3 ml Q4H PRN HHN Shortness of Breath 07/28/17 22:15 08/02/17 22:14 Cefepime HCl 2 gm/ Dextrose 55 ml @ 110 mls/hr Q12H IV 07/29/17 16:00 08/05/17 03:59 Dextrose (Dextrose 50%) STAT PRN IV Hypoglycemia 07/28/17 22:15 08/27/17 22:14 Folic Acid (Folate) 1 mg DAILY ORAL 07/29/17 14:00 08/28/17 13:59 07/29/17 14:07 Gabapentin (Neurontin) 100 mg THREE TIMES A DAY ORAL 07/29/17 13:00 08/28/17 12:59 07/29/17 14:06 Heparin Sodium (Porcine) (Heparin 5000 units/ml) 5,000 units EVERY 12 HOURS SUBQ 07/29/17 09:00 08/28/17 08:59 07/29/17 08:21 Morphine Sulfate (Morphine Sulfate) 2 mg Q4H PRN IVP Moderate Pain (Pain Scale 4-6) 07/28/17 22:15 08/04/17 22:14 07/29/17 12:47 Nitroglycerin (Ntg) 0.4 mg Every 5 Minutes PRN SL Prn Chest Pain 07/28/17 22:15 08/27/17 22:14 Ondansetron HCl (Zofran) 4 mg Q6H PRN IVP Nausea & Vomiting 07/28/17 22:15 08/27/17 22:14 Polyethylene Glycol (Miralax) 17 gm DAILYPRN PRN ORAL Constipation 07/28/17 22:15 08/27/17 22:14 Spironolactone (Aldactone) 100 mg DAILY ORAL 07/29/17 09:00 08/28/17 08:59 07/29/17 08:15 Temazepam (Restoril) 15 mg HSPRN PRN ORAL Insomnia 07/28/17 22:15 08/04/17 22:14 Thiamine HCl (Vitamin B1) 100 mg DAILY ORAL 07/29/17 14:00 08/28/17 13:59 07/29/17 14:07 Vancomycin HCl (Vanco rx to dose) 1 ea DAILY PRN MISC Per Pharmacy Dosing Protocol 07/28/17 23:00 08/27/17 22:59 Vancomycin HCl/ Dextrose 250 ml @ 166.667 mls/hr Q8HR IVPB 07/29/17 06:00 08/03/17 05:59 07/29/17 14:10 JAYCEE SANZ Jul 29, 2017 16:25
[2017-07-29] MEDS ORDERED: BACTRIM DS TAB1 EAC1 ORAL (17:08)
[2017-07-29] MEDS ORDERED: AUGMENTIN 875-1 EAC1 ORAL (17:09)
[2017-07-29] MEDS ORDERED: Tubing IV Secondary IV ONE (18:50)
[2017-07-29] MEDS ORDERED: NS 500ML ONE (18:50)
--- NOTE | 2017-07-30 17:03 | Cardiology Report ---
APPROVED REPORT EKG Measurement Heart [id number] Normal sinus rhythm Normal ECG
--- NOTE | 2017-07-30 21:00 | Discharge Summary 2 SIG ---
DATE OF ADMISSION: 07/28/2017 DATE OF DISCHARGE: 07/29/2017 CONSULTANTS: Gris Plata M.D. BRIEF HOSPITAL COURSE: The patient is a 42-year-old male with ETOH abuse, peripheral neuropathy, presented to ED complaining of two to three days increased pain and redness with swelling on his right third toe. He had blisters that developed several days ago and seemed to be getting better, however, there are lesions on his great toes and nail appeared to be bruised. His toes started to hurt and get red. He is slightly nauseated with decreased appetite. He was uncertain when was his last tetanus shot. On evaluation at ED, blood work showed no leukocytosis, ESR was 39. X-ray of the right foot showed no dislocation, no fractures. There is third toe soft tissue swelling. No plain radiographic evidence of osteomyelitis. Chest x-ray done showed no acute process. He was admitted for cellulitis of the foot and was followed by Infectious Disease specialist. He was initially given IV vancomycin and cefepime was switched to Zosyn. He was recommended to continue with IV antibiotic, but the patient was adamant as he has to leave for a business trip. He was then discharged home. Advised to continue with p.o. antibiotic and needs to have close followup. FINAL DIAGNOSES: 1. Cellulitis of the right third toe. 2. Peripheral neuropathy. 3. ETOH cirrhosis. 4. Hypertension. 5. Tobacco abuse. 6. History of pancreatitis. DISPOSITION: The patient was discharged home. DISCHARGE MEDICATIONS: Refer to medication list. Continue with Augmentin 875/125 mg twice a day for 14 days and Bactrim DS two tablets twice a day x14 days. Benigno Cheng M.D. I have been assigned to dictate discharge summary on this account and I was not involved in the patient's management. Diann Hui N.P. DR: TAMIE JOB#: [id number] CC: LINDA
--- NOTE | 2017-08-06 11:01 | Diagnostic Imaging Report ---
APPROVED REPORT CPT Code: 86935 Present Symptoms Comments: Pain BILATERAL: Imaging reveals a patent deep venous system bilaterally. There is no evidence of thrombus within the femoral, popliteal or tibial segments. The greater saphenous veins are also within normal limits. Doppler indicates normal spontaneous flow within these segments.
== END 2017-07-29 18:51 | disposition home or self-care (01) | DRG 383 ==
LOC: EMR 20:41 → 4E 21:20 → EDBEDREQ 21:58
DX: L03.031 Cellulitis of right toe (principal); K70.30 Alcoholic cirrhosis of liver without ascites; G90.9 Disorder of the autonomic nervous system, unspecified; I10 Essential (primary) hypertension; L97.519 Non-pressure chronic ulcer of other part of right foot with unspecified severity; F17.200 Nicotine dependence, unspecified, uncomplicated
CPT/HCPCS: 36415; 71010; 80053; 81003; 82248; 82550; 82962; 83605; 84484; 85025; 85610; 85651; 85730; 87040; 87070; 87181; 87205; 90471; 90630; 90715; 93005; 93970; 94664; 99285; J2405

== ENCOUNTER 2017-08-22 13:12 | Emergency (ER) | payer MEDICAID ==
[~2017-08-22] VITALS: Ht 195.6 cm; Wt 109.3 kg
[~2017-08-22 13:12] MED LIST changes: +AUGMENTIN 875-1 EAC1 ORAL; +BACTRIM DS TAB1 EAC1 ORAL; +GABAPENTIN100 MG ORAL
[2017-08-22] MEDS ORDERED: IBUPROFEN600 MG ORAL (13:57)
[2017-08-22] MEDS ORDERED: PROMETHAZINE-C118 M1 ORAL (13:57)
[2017-08-22] MEDS ORDERED: CIPROFLOXACIN750 MG ORAL (13:57)
[2017-08-22 14:04] VITALS: BP 159/97
--- NOTE | 2017-08-22 15:28 | Emergency Room Report ---
History of Present Illness General Chief Complaint: Pain Source: Patient, Medical Record Present Illness HPI The patient is a 42-year-old male with a history of diabetes and peripheral neuropathy presenting for toe possible infection. He was seen in this emergency department 3 weeks prior for a right toe infection and was admitted with IV antibiotics. He was also prescribed oral antibiotics which she finished. He states that he began to feel pain at the same location as well as some mild redness 2 days ago. He is concerned infection has returned. Pain is 5/10 dull ache. Does not radiate. Worse with touch. He denies any fever or chills. He denies any other symptoms including calf pain or swelling Allergies: Coded Allergies: Cat Dander (Unverified Allergy, Unknown, Itching, 03/23/15) Uncoded Allergies: LACTOSE INTOLERANCE (Adverse Reaction, Severe, 06/05/14) FORMATION OF GAS Patient History Past Medical History: see triage record Pertinent Family History: none Reviewed Nursing Documentation: PMH: Agreed, PSxH: Agreed Nursing Documentation-PMH Past Medical History: No History, Except For Hx Cardiac Problems: Yes - Tachycardia Hx Hypertension: Yes Hx Pacemaker: No Hx Asthma: No Hx COPD: No Hx Diabetes: No Hx Cancer: No Hx Gastrointestinal Problems: Yes 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 Hx Cerebrovascular Accident: No Hx Seizures: No Hx Peripheral Neuropathy: Yes Hx Spinal Cord Injury: Yes - JUL 13, 2012 WORK INJURY Hx Numbness: Yes - BLE Review of Systems All Other Systems: negative except mentioned in HPI Physical Exam Vital Signs Date Time Temp Pulse Resp B/P (MAP) Pulse Ox O2 Delivery O2 Flow Rate FiO2 08/22/17 13:23 99.0 100 18 159/97 96 Room Air Sp02 EP Interpretation: reviewed, normal General Appearance: no apparent distress, alert, GCS 15, non-toxic Head: normocephalic, atraumatic Eyes: bilateral eye normal inspection, bilateral eye PERRL ENT: hearing grossly normal, no angioedema, normal voice, uvula midline, pharyngeal erythema Respiratory: chest non-tender, lungs clear, normal breath sounds, no respiratory distress, no wheezing, speaking full sentences Musculoskeletal: back normal, gait/station normal, normal range of motion, inflammation - R 3rd toe, tender - R 3rd toe Neurologic: alert, oriented x3, responsive, motor strength/tone normal, speech normal Psychiatric: judgement/insight normal, memory normal, mood/affect normal, no suicidal/homicidal ideation Skin: other - R 3rd toe erythema Medical Decision Making PA Attestation Dr. England is my supervising physician. Patient management was discussed with my supervising physician Diagnostic Impression: Primary Impression: Upper respiratory disease Additional Impression: Cellulitis Qualified Codes: L03.90 - Cellulitis, unspecified ER Course The patient is a 42-year-old male with a history of diabetes and peripheral neuropathy presenting for toe possible infection Ddx considered include but not limited to Cellulitis, paronychia, osteomyelitis , gangrene, among others Physical exam: Right third toe has localized erythema. Sensation has decreased but is intact. Tender to palpation. Full active range of motion intact. Minimal edema The patient will be discharged home with oral antibiotics. Sensitivity report was consulted and he will be placed on ciprofloxacin. He was given strict precautions to return if the infection appears to be worsening. Last Vital Signs Date Time Temp Pulse Resp B/P (MAP) Pulse Ox O2 Delivery O2 Flow Rate FiO2 08/22/17 14:04 99.0 100 20 159/97 96 Room Air Status: improved Disposition: HOME, SELF-CARE Condition: Improved Scripts Ibuprofen* (MOTRIN*) 600 Mg Tablet 600 MG ORAL Q8H Y for Fever/Headache/Mild Pain, #30 TAB 0 Refills Prov: RAFIQ MCGRAW P.A. 08/22/17 Codeine/Promethazine Hcl* (PROMETHAZINE-CODEINE SYRUP*) 118 Ml Syrup 5 ML ORAL Q6H Y for For Cough, #118 ML 0 Refills Prov: TERZIANRAFIQ P.A. 08/22/17 Ciprofloxacin Hcl (CIPROFLOXACIN HCL*) 750 Mg Tablet 750 MG ORAL Q12HR, #20 TAB 0 Refills Prov: TERZIANRAFIQ P.A. 08/22/17 Referrals: [employer] [facility],REFERRIN (PCP) Patient Instructions: Cellulitis Additional Instructions: I discussed my findings with the patient. All questions and concerns have been answered. Treatment and medication compliance have been addressed. I advised the patient that they need to follow up with PMD in 3-5 days. Return to ED if symptoms worsen, new symptoms arise, or if needed for any reason. Patient verbalized understanding of discharge instructions. RAFIQ MCGRAW Aug 22, 2017 15:28
== END 2017-08-22 14:03 | disposition home or self-care (01) ==
LOC: EMR 13:55
DX: J98.9 Respiratory disorder, unspecified (principal); L03.90 Cellulitis, unspecified; M79.676 Pain in unspecified toe(s); E11.9 Type 2 diabetes mellitus without complications; E11.40 Type 2 diabetes mellitus with diabetic neuropathy, unspecified; R00.0 Tachycardia, unspecified; I10 Essential (primary) hypertension
CPT/HCPCS: 99284

== ENCOUNTER 2019-03-09 13:59 | Inpatient (IN) | payer MEDICAID, OTHER ==
[~2019-03-09] VITALS: Ht 195.6 cm; Wt 105.7 kg
[~2019-03-09 13:59] MED LIST changes: +CIPROFLOXACIN750 MG ORAL; +IBUPROFEN600 MG ORAL; +PROMETHAZINE-C118 M1 ORAL
[2019-03-09] MEDS ORDERED: NKM (14:26)
[2019-03-09 14:35] VITALS: BP 130/81
[2019-03-09] MEDS ORDERED: Piperacillin/Tazobactam 4.5 GM in NS 110 ML IVPB ONE (15:00)
--- NOTE | 2019-03-09 15:11 | NUR ---
ED Nurse Note: pt tolerates iv start and labs well. pt with xrays being done at bs. pt with discoloration to left foot with open wound that is leaking serous fluid in small amts. pt a/ox4 he states that he noticed the change in color starting this am.
--- NOTE | 2019-03-09 15:30 | NUR ---
ED Nurse Note: pt tolerating abx well. denies increased c/o
--- NOTE | 2019-03-09 15:48 | Diagnostic Imaging Report ---
Indication: Foot pain Comparison: None Findings: 3 views of the left foot were obtained. There is a prominent ulcer along the lateral aspect of the foot near the head of the fifth metatarsal, which should be confirmed clinically. There is a dislocation of the fifth MTP joint as well as a fracture of the head of the fifth metatarsal, which appears abnormally lucent suggesting this may be a pathologic or insufficiency type fracture. Clinical correlation is needed. IMPRESSION: Acute fracture dislocation of the fifth MTP joint as described above. Adjacent ulceration with lucency of the head of the fifth metatarsal is suspicious for acute osteomyelitis which may be superimposed. Please correlate clinically.
[2019-03-09 15:52] LABS: BASOPHILS % (AUTO) 1.4 % (0.0-2.0); EOSINOPHILS % (AUTO) 1.8 % (0.0-3.0); HEMATOCRIT 39.4 % (42.0-52.0); HEMOGLOBIN 13.9 G/DL (14.2-18.0); LYMPHOCYTES % (AUTO) 18.5 % (20.0-45.0); MEAN CORPUSCULAR VOLUME 94 FL (80-99); NEUTROPHILS % (AUTO) 70.4 % (45.0-75.0); PLATELET COUNT 255 K/UL (150-450); RED BLOOD COUNT 4.19 M/UL (4.70-6.10); RED CELL DISTRIBUTION WIDTH 11.7 % (11.6-14.8); WHITE BLOOD COUNT 7.5 K/UL (4.8-10.8)
[2019-03-09 15:53] LABS: ANION GAP 10 mmol/L (5-15); BLOOD UREA NITROGEN 10 mg/dL (7-18); CALCIUM 9.1 MG/DL (8.5-10.1); CARBON DIOXIDE 25 MMOL/L (21-32); CHLORIDE 103 MMOL/L (98-107); CREATININE 0.8 MG/DL (0.55-1.30); POTASSIUM 3.9 MMOL/L (3.5-5.1); SODIUM 138 MMOL/L (136-145)
[2019-03-09 15:58] LABS: ALANINE AMINOTRANSFERASE 44 U/L (12-78); ALBUMIN 3.4 G/DL (3.4-5.0); ALBUMIN/GLOBULIN RATIO 0.6 (1.0-2.7); ALKALINE PHOSPHATASE 64 U/L (46-116); ASPARTATE AMINO TRANSFERASE 35 U/L (15-37); BILIRUBIN,TOTAL 0.7 MG/DL (0.2-1.0)
--- NOTE | 2019-03-09 16:54 | Diagnostic Imaging Report ---
Indication: Dyspnea Comparison: 07/28/2017 A single view chest radiograph was obtained. Findings: Cardiomediastinal appearance is within normal limits for age. The lungs are clear. Pulmonary vascularity is appropriate. The diaphragmatic contour is smooth and costophrenic angles are sharp. No pleural effusions are identified. The bones are unremarkable. Impression: No acute findings
--- NOTE | 2019-03-09 17:46 | Consultation ---
History of Present Illness General Date patient seen: Mar 09, 2019 Reason for Hospitalization: Skin Rash/Abscess Present Illness HPI This is a very pleasant 43-year-old male who presented to the emergency department at [facility] for evaluation of his worsening LEFT foot ulceration and discomfort. Patient states that almost near a year ago he was at an event in [place] "comic con" where he developed a blister on his left foot plantar aspect around the metatarsal joints which over the subsequent few weeks became an open wound that he has been taking care of. States that during this time while placing dressing on the wound he removed the tape once quickly and this caused him to develop a wound on the lateral aspect of the foot as well. Patient states he has neuropathy in the foot but is not a diabetic and neuropathy is from his lower back. He states that he has been on gabapentin for some time now he does not recall any other trauma to the extremity. He states that approximately a week ago he went to a urgent care and was given antibiotics and told if worsening then come in for evaluation. Labs okay, plain films with acute fracture and possible osteo-, open wound, surgery called to evaluate and assist with care. This patient seen, patient evaluated, chart reviewed. Afebrile hemodynamic stable states no recent drainage. States potentially has had cellulitis prior but does not recall. Allergies: Coded Allergies: Cat Dander (Unverified Allergy, Unknown, Itching, 03/09/19) Uncoded Allergies: LACTOSE INTOLERANCE (Adverse Reaction, Severe, 06/05/14) FORMATION OF GAS Medication History Scheduled Amoxicillin/Potassium Clav 875-125* (Augmentin 875-125 Tablet*), 1 TAB ORAL TWICE A DAY, (Reported) Ciprofloxacin Hcl (Ciprofloxacin Hcl*), 750 MG ORAL Q12HR Cyanocobalamin (Vitamin B-12)* (Vitamin B-12*), 500 MCG ORAL DAILY, (Reported) Folic Acid* (Folic Acid*), 1 MG ORAL DAILY Furosemide* (Lasix*), 20 MG ORAL DAILY Gabapentin* (Gabapentin*), 100 MG ORAL THREE TIMES A DAY, (Reported) Loratadine (Claritin), 10 MG ORAL DAILY, (Reported) Lorazepam* (Ativan*), 1 MG ORAL EVERY 4 HOURS, (Reported) Multivitamins* (Multivitamins*), 1 TAB ORAL DAILY, (Reported) No Known Medications* (NKM - No Known Medications*), 0 ., (Reported) Pantoprazole* (Protonix*), 40 MG ORAL DAILY Prochlorperazine Maleate* (Compazine*), Unknown Dose ORAL TID, (Reported) Spironolactone (Aldactone), 100 MG ORAL DAILY Thiamine Hcl (Vitamin B1*), 100 MG ORAL DAILY Trimethoprim/Sulfamethoxazole 160/800* (Bactrim Ds Tablet*), 2 TAB ORAL TWICE A DAY, (Reported) Scheduled PRN Acetaminophen With Codeine 300MG/30MG (T#3)* (Tylenol With Codeine #3 Tablet*), 1 TAB ORAL EVERY 6 HOURS PRN for For Pain Codeine/Promethazine Hcl* (Promethazine-Codeine Syrup*), 5 ML ORAL Q6H PRN for For Cough Ibuprofen* (Motrin*), 600 MG ORAL Q8H PRN for Fever/Headache/Mild Pain Patient History History Provided By: Patient Healthcare decision maker Resuscitation status Advanced Directive on File Past Medical/Surgical History Past Medical/Surgical History: (1) Cellulitis (2) Intractable vomiting (3) Dehydration (4) Pancreatitis (5) Intractable vomiting (6) Dehydration (7) Abdominal pain (8) Pancreatitis (9) Abdominal pain (10) History of Helicobacter pylori infection (11) Pancreatitis (12) UTI (urinary tract infection) (13) Dehydration (14) Cholestasis (15) Pancreatitis (16) Ascites (17) Ascites (18) Cirrhosis of liver (19) Alcohol withdrawal (20) Cirrhosis of liver (21) Fatty liver (22) Abdominal pain (23) Elevated LFTs (24) Jaundice (25) Anemia (26) Gastritis (27) Nausea & vomiting (28) Cyclic vomiting syndrome (29) Upper respiratory disease Review of Systems Review of Symptoms General ROS: no weight loss or fever Psychological ROS: no depression or mood changes, no memory loss Ophthalmic ROS: no visual changes or eye irritation ENT ROS: no nasal congestion, hearing loss, dizziness Allergy and Immunology ROS: no allergic symptoms or urticaria Hematological and Lymphatic ROS: no swollen glands, unusual bleeding or bruising Endocrine ROS: no polyuria, polydipsia, weight changes, temperature intolerance Respiratory ROS: no cough, shortness of breath, or wheezing Cardiovascular ROS: no chest pain or dyspnea on exertion Gastrointestinal ROS: denies abdominal pain, no bright red blood in stool. Musculoskeletal ROS: no myalgias or arthralgias Neurological ROS: no TIA or stroke symptoms Dermatological ROS: no new or changing skin lesions, rashes or pruritis Physical Exam Physical Exam General appearance: alert, cooperative, no distress, appears stated age Head: Normocephalic, without obvious abnormality, atraumatic Eyes: conjunctivae/corneas clear. PERRL, EOM's intact. Fundi benign Throat: Lips, mucosa, and tongue normal. Teeth and gums normal Neck: supple, symmetrical, trachea midline, no adenopathy, thyroid: not enlarged, symmetric, no tenderness/mass/nodules, no carotid bruit and no JVD Lungs: clear to auscultation bilaterally Heart: regular rate and rhythm, S1, S2 normal, no murmur, click, rub or gallop Abdomen: soft, non-tender. Bowel sounds normal. No masses, no organomegaly Extremities: extremities normal, atraumatic, no cyanosis or edema. see below Pulses: 2+ and symmetric Skin: Skin color, texture, turgor normal. No rashes or lesions Neurologic: Grossly normal Last 24 Hour Vital Signs Date Time Temp Pulse Resp B/P (MAP) Pulse Ox O2 Delivery O2 Flow Rate FiO2 03/09/19 14:22 98.8 99 16 130/81 (97) 95 Room Air Laboratory Tests Test 03/09/19 15:10 White Blood Count 7.5 K/UL (4.8-10.8) Red Blood Count 4.19 M/UL (4.70-6.10) L Hemoglobin 13.9 G/DL (14.2-18.0) L Hematocrit 39.4 % (42.0-52.0) L Mean Corpuscular Volume 94 FL (80-99) Mean Corpuscular Hemoglobin 33.1 PG (27.0-31.0) H Mean Corpuscular Hemoglobin Concent 35.2 G/DL (32.0-36.0) Red Cell Distribution Width 11.7 % (11.6-14.8) Platelet Count 255 K/UL (150-450) Mean Platelet Volume 6.5 FL (6.5-10.1) Neutrophils (%) (Auto) 70.4 % (45.0-75.0) Lymphocytes (%) (Auto) 18.5 % (20.0-45.0) L Monocytes (%) (Auto) 8.0 % (1.0-10.0) Eosinophils (%) (Auto) 1.8 % (0.0-3.0) Basophils (%) (Auto) 1.4 % (0.0-2.0) Sodium Level 138 MMOL/L (136-145) Potassium Level 3.9 MMOL/L (3.5-5.1) Chloride Level 103 MMOL/L (98-107) Carbon Dioxide Level 25 MMOL/L (21-32) Anion Gap 10 mmol/L (5-15) Blood Urea Nitrogen 10 mg/dL (7-18) Creatinine 0.8 MG/DL (0.55-1.30) Estimat Glomerular Filtration Rate > 60 mL/min (>60) Glucose Level 91 MG/DL (74-106) Calcium Level 9.1 MG/DL (8.5-10.1) Total Bilirubin 0.7 MG/DL (0.2-1.0) Aspartate Amino Transf (AST/SGOT) 35 U/L (15-37) Alanine Aminotransferase (ALT/SGPT) 44 U/L (12-78) Alkaline Phosphatase 64 U/L (46-116) Total Protein 8.9 G/DL (6.4-8.2) H Albumin 3.4 G/DL (3.4-5.0) Globulin 5.5 g/dL Albumin/Globulin Ratio 0.6 (1.0-2.7) L Height (Feet): 6 Height (Inches): 5.00 Weight (Pounds): 235 Assessment/Plan Problem List: (1) Cellulitis Assessment & Plan: 43-year-old male with medical comorbidities as above who is potentially a poor historian presented with worsening ulcer cellulitis and wound of his left leg/foot. Afebrile here and having stable labs noted. Plain films as below. There is a prominent ulcer along the lateral aspect of the foot near the head of the fifth metatarsal, which should be confirmed clinically. There is a dislocation of the fifth MTP joint as well as a fracture of the head of the fifth metatarsal, which appears abnormally lucent suggesting this may be a pathologic or insufficiency type fracture. Clinical correlation is needed. IMPRESSION: Acute fracture dislocation of the fifth MTP joint as described above. Adjacent ulceration with lucency of the head of the fifth metatarsal is suspicious for acute osteomyelitis which may be superimposed. Please correlate clinically. Strong suspicion that there is osteomyelitis at the fifth metatarsal head based on examination where the wound is open and the bone is palpable. Etiology of the wound is still unknown and patient story is somewhat hard to believe Recommend admission for IV antibiotics and further work-up. MRI of the left foot ordered Podiatry evaluation for foot salvage Thank you for allowing me to participate in patient's care will follow with recommendations ICD Codes: L03.90 - Cellulitis, unspecified SNOMED: [id number] Jeffery Rogers Mar 09, 2019 17:46
[2019-03-09 18:00] VITALS: BP 128/79
[2019-03-09] MEDS ORDERED: Gadavist 7.5mMol/7.5ml vial IV PRN (18:00)
--- NOTE | 2019-03-09 18:17 | Emergency Room Report ---
History of Present Illness General Chief Complaint: Skin Rash/Abscess Source: Patient Present Illness HPI 43-year-old male with history of recurrent foot ulcer here complaining of worsening foot ulcer in the bottom of his left foot that appeared 3 weeks ago. Patient reports that he was hospitalized at [facility] 1 year ago due to foot ulcer on his other foot. Patient reports that this time he started applying a lot of pressure to the affected area walking long distance and the wound started by patient giving him self cut the bottom of his foot. Patient rating pain 10 out of 10 with radiation denying tingling numbness. Patient went to an urgent care 2 weeks ago and was given a shot of Rocephin as well as oral Bactrim. Patient is here today reporting of increased pain and worsening wound. Patient reports that he contacted his wound care and wound care told him that he needs to come back here. Patient does not want to be admitted and wants to be followed up by wound care. Denies fever chills, calf tenderness, shortness of breath, palpitation, abdominal pain, nausea vomiting. No motor or sensory deficits noted Allergies: Coded Allergies: Cat Dander (Unverified Allergy, Unknown, Itching, 03/09/19) Uncoded Allergies: LACTOSE INTOLERANCE (Adverse Reaction, Severe, 06/05/14) FORMATION OF GAS Patient History Past Medical History: see triage record Past Surgical History: unable to obtain Pertinent Family History: none Immunizations: UTD Reviewed Nursing Documentation: PMH: Agreed; PSxH: Agreed Nursing Documentation-[facility] Past Medical History: No History, Except For Hx Cardiac Problems: Yes - Tachycardia Hx Hypertension: Yes Hx Pacemaker: No Hx Asthma: No Hx COPD: No Hx Diabetes: No Hx Cancer: No Hx Gastrointestinal Problems: Yes 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 Hx Cerebrovascular Accident: No Hx Seizures: No Hx Peripheral Neuropathy: Yes Hx Spinal Cord Injury: Yes - JUL 13, 2012 WORK INJURY Hx Numbness: Yes - BLE Review of Systems All Other Systems: negative except mentioned in HPI Physical Exam Vital Signs Date Time Temp Pulse Resp B/P (MAP) Pulse Ox O2 Delivery O2 Flow Rate FiO2 03/09/19 14:22 98.8 99 16 130/81 (97) 95 Room Air Sp02 EP Interpretation: reviewed, normal General Appearance: normal inspection, well appearing, no apparent distress, alert, GCS 15 Head: normocephalic, atraumatic Eyes: bilateral eye normal inspection, bilateral eye PERRL ENT: normal ENT inspection, hearing grossly normal, normal pharynx Neck: normal inspection, full range of motion, supple Respiratory: normal inspection, lungs clear, normal breath sounds, no retraction, no wheezing Cardiovascular #1: normal inspection, no edema, no murmur, normal capillary refill Cardiovascular #2: 2+ dorsalis pedis (R), 2+ dorsalis pedis (L) Gastrointestinal: normal inspection, non tender, soft Genitourinary: no CVA tenderness Musculoskeletal: back normal, other - Deep foot ulcer on the left lateral dorsum of foot. 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 Noe Diagnostic Impression: Primary Impression: Osteomyelitis of left foot Additional Impression: Nondisp fracture of fifth left metatarsal bone with delayed healing ER Course 43-year-old male with history of recurrent foot ulcer here complaining of worsening foot ulcer in the bottom of his left foot that appeared 3 weeks ago. Patient reports that he was hospitalized at [facility] 1 year ago due to foot ulcer on his other foot. Patient reports that this time he started applying a lot of pressure to the affected area walking long distance and the wound started by patient giving him self cut the bottom of his foot. Patient rating pain 10 out of 10 with radiation denying tingling numbness. Patient went to an urgent care 2 weeks ago and was given a shot of Rocephin as well as oral Bactrim. Patient is here today reporting of increased pain and worsening wound. Patient reports that he contacted his wound care and wound care told him that he needs to come back here. Patient does not want to be admitted and wants to be followed up by wound care. Denies fever chills, calf tenderness, shortness of breath, palpitation, abdominal pain, nausea vomiting. No motor or sensory deficits noted Ddx considered but are not limited to : Cellulitis, DVT, superficial infection, abscess, osteomyelitis Vital signs: are WNL, pt. is afebrile H&PE are most consistent with: Osteomyelitis of left foot secondary to foot ulcer and fracture of fifth meta tarsal secondary to osteomyelitis ORDERS: X-ray left foot, preop work-up ED INTERVENTIONS: [place] Patient was admited with diagnosis of osteomyelitis of left foot to Dr. Hoyt and Dr. Rogers under supervision of : Hasmukh pt stable at time of admission EKG Diagnostic Results Rate: normal Rhythm: NSR ST Segments: no acute changes Chest X-Ray Diagnostic Results Chest X-Ray Diagnostic Results : Chest X-Ray Ordered: Yes # of Views/Limited/Complete: 1 View Indication: Other EP Interpretation: Yes PA Xray: Interpretation reviewed, by supervising MD, and agrees with findings. Interpretation: no consolidation, no effusion, no pneumothorax, no acute cardiopulmonary disease Impression: No acute disease Electronically Signed by: Letty Williamson PA-C Other X-Ray Diagnostic Results Other X-Ray Diagnostic Results : X-Ray ordered: Left foot # of Views/Limited Vs Complete: 3 View Indication: Pain EP Interpretation: Yes PA Xray: Interpretation reviewed, by supervising MD, and agrees with findings. Interpretation: other - Fracture of left fifth metatarsal and osteomyelitis Impression: Other - Osteomyelitis, fracture of left fifth metatarsal Electronically Signed by: Letty Williamson PA-C CT/MRI/US Diagnostic Results CT/MRI/US Diagnostic Results : Imaging Test Ordered: MRI left foot Impression MRI LEFT FOOT W/WO Contrast: As seen on the same day foot radiographic study, there is dislocation at the fifth metatarsophalangeal joint. There is a large irregular soft tissue defect expected to represent ulceration with adjacent osteomyelitis involving the majority of the fifth metatarsal. There is also marrow signal alteration compatible with osteomyelitis of the fifth proximal phalanx. There is soft tissue edema/signal alteration about the fifth digit which may be reactive, although cellulitis should be considered. No soft tissue abscess. The tendons are unremarkable. No other significant abnormality. Last Vital Signs Date Time Temp Pulse Resp B/P (MAP) Pulse Ox O2 Delivery O2 Flow Rate FiO2 03/09/19 14:35 98.8 99 16 130/81 95 Room Air Reevaluation Impression MRI LEFT FOOT W/WO Contrast: As seen on the same day foot radiographic study, there is dislocation at the fifth metatarsophalangeal joint. There is a large irregular soft tissue defect expected to represent ulceration with adjacent osteomyelitis involving the majority of the fifth metatarsal. There is also marrow signal alteration compatible with osteomyelitis of the fifth proximal phalanx. There is soft tissue edema/signal alteration about the fifth digit which may be reactive, although cellulitis should be considered. No soft tissue abscess. The tendons are unremarkable. No other significant abnormality. Disposition: ADMITTED INPATIENT Condition: Stable Referrals: [facility],REFERRING (PCP) Letty Francisco Mar 09, 2019 18:17
--- NOTE | 2019-03-09 18:27 | NUR ---
ED Nurse Note: pt to mri via wheelchair
[2019-03-09] MEDS ORDERED: Tylenol #3 tab (300mg/30mg) ORAL PRN (18:30)
[2019-03-09] MEDS ORDERED: Miralax 17gm pkt ORAL PRN (18:30)
--- NOTE | 2019-03-09 18:55 | NUR ---
ED Nurse Note: report given to sheila arrington. pt currently in mri so unable to transport to floor.
--- NOTE | 2019-03-09 19:05 | NUR ---
NURSE NOTES: I received telephone report from ТАТЬЯНА Ray from ER. Per ТАТЬЯНА Ray patient is at MRI while giving report to me. Report given to ТАТЬЯНА Bhatt
--- NOTE | 2019-03-09 19:07 | NUR ---
HAND-OFF: Report given to ТАТЬЯНА Bhatt.
--- NOTE | 2019-03-09 19:20 | History and Physical ---
History of Present Illness General Date patient seen: Mar 09, 2019 Time patient seen: 18:50 Reason for Hospitalization: Skin Rash/Abscess Present Illness HPI 43-year-old male who presented to the ED at [facility] for evaluation of his worsening LEFT foot ulceration and pain. Patient stated that a year ago he was at an event in [place] "comic con" where he developed a blister on his left foot plantar aspect around the metatarsal joints which then became an open wound. States that during this time while placing dressing on the wound he removed the tape once quickly and this caused him to develop a wound on the lateral aspect of the foot. 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 He states that he has been on gabapentin for some time now he does not recall any other trauma to the extremity. He states that approximately a week ago he went to a urgent care and was given antibiotics and told if worsening then come in for evaluation. Labs stable, plain films with acute fracture and possible osteo-, open wound, surgery called to evaluate and assist with care by Dr. Smalls. Admission is requested and Zosyn IV was started in the ED Allergies: Coded Allergies: Cat Dander (Unverified Allergy, Unknown, Itching, 03/09/19) Uncoded Allergies: LACTOSE INTOLERANCE (Adverse Reaction, Severe, 06/05/14) FORMATION OF GAS Medication History Scheduled Amoxicillin/Potassium Clav 875-125* (Augmentin 875-125 Tablet*), 1 TAB ORAL TWICE A DAY, (Reported) Ciprofloxacin Hcl (Ciprofloxacin Hcl*), 750 MG ORAL Q12HR Cyanocobalamin (Vitamin B-12)* (Vitamin B-12*), 500 MCG ORAL DAILY, (Reported) Folic Acid* (Folic Acid*), 1 MG ORAL DAILY Furosemide* (Lasix*), 20 MG ORAL DAILY Gabapentin* (Gabapentin*), 100 MG ORAL THREE TIMES A DAY, (Reported) Loratadine (Claritin), 10 MG ORAL DAILY, (Reported) Lorazepam* (Ativan*), 1 MG ORAL EVERY 4 HOURS, (Reported) Multivitamins* (Multivitamins*), 1 TAB ORAL DAILY, (Reported) No Known Medications* (NKM - No Known Medications*), 0 ., (Reported) Pantoprazole* (Protonix*), 40 MG ORAL DAILY Prochlorperazine Maleate* (Compazine*), Unknown Dose ORAL TID, (Reported) Spironolactone (Aldactone), 100 MG ORAL DAILY Thiamine Hcl (Vitamin B1*), 100 MG ORAL DAILY Trimethoprim/Sulfamethoxazole 160/800* (Bactrim Ds Tablet*), 2 TAB ORAL TWICE A DAY, (Reported) Scheduled PRN Acetaminophen With Codeine 300MG/30MG (T#3)* (Tylenol With Codeine #3 Tablet*), 1 TAB ORAL EVERY 6 HOURS PRN for For Pain Codeine/Promethazine Hcl* (Promethazine-Codeine Syrup*), 5 ML ORAL Q6H PRN for For Cough Ibuprofen* (Motrin*), 600 MG ORAL Q8H PRN for Fever/Headache/Mild Pain Patient History Healthcare decision maker N Resuscitation status Advanced Directive on File Review of Systems All Other Systems: negative except mentioned in HPI Physical Exam General Appearance: WD/WN Lines, tubes and drains: peripheral HEENT: normocephalic Neck: normal alignment Cardiovascular/Chest: normal peripheral pulses Abdomen: normal bowel sounds Extremities: other - L foot V metatarsal bone is exposed and palpable Neurologic: coiler II-XII grossly normal Musculoskeletal: normal muscle bulk Last 24 Hour Vital Signs Date Time Temp Pulse Resp B/P (MAP) Pulse Ox O2 Delivery O2 Flow Rate FiO2 03/09/19 18:00 99 16 128/79 99 Room Air 03/09/19 14:35 98.8 99 16 130/81 95 Room Air 03/09/19 14:22 98.8 99 16 130/81 (97) 95 Room Air Laboratory Tests Test 03/09/19 15:10 White Blood Count 7.5 K/UL (4.8-10.8) Red Blood Count 4.19 M/UL (4.70-6.10) L Hemoglobin 13.9 G/DL (14.2-18.0) L Hematocrit 39.4 % (42.0-52.0) L Mean Corpuscular Volume 94 FL (80-99) Mean Corpuscular Hemoglobin 33.1 PG (27.0-31.0) H Mean Corpuscular Hemoglobin Concent 35.2 G/DL (32.0-36.0) Red Cell Distribution Width 11.7 % (11.6-14.8) Platelet Count 255 K/UL (150-450) Mean Platelet Volume 6.5 FL (6.5-10.1) Neutrophils (%) (Auto) 70.4 % (45.0-75.0) Lymphocytes (%) (Auto) 18.5 % (20.0-45.0) L Monocytes (%) (Auto) 8.0 % (1.0-10.0) Eosinophils (%) (Auto) 1.8 % (0.0-3.0) Basophils (%) (Auto) 1.4 % (0.0-2.0) Erythrocyte Sedimentation Rate Pending Sodium Level 138 MMOL/L (136-145) Potassium Level 3.9 MMOL/L (3.5-5.1) Chloride Level 103 MMOL/L (98-107) Carbon Dioxide Level 25 MMOL/L (21-32) Anion Gap 10 mmol/L (5-15) Blood Urea Nitrogen 10 mg/dL (7-18) Creatinine 0.8 MG/DL (0.55-1.30) Estimat Glomerular Filtration Rate > 60 mL/min (>60) Glucose Level 91 MG/DL (74-106) Calcium Level 9.1 MG/DL (8.5-10.1) Total Bilirubin 0.7 MG/DL (0.2-1.0) Aspartate Amino Transf (AST/SGOT) 35 U/L (15-37) Alanine Aminotransferase (ALT/SGPT) 44 U/L (12-78) Alkaline Phosphatase 64 U/L (46-116) C-Reactive Protein, Quantitative 4.3 mg/dL (0.00-0.90) H Total Protein 8.9 G/DL (6.4-8.2) H Albumin 3.4 G/DL (3.4-5.0) Globulin 5.5 g/dL Albumin/Globulin Ratio 0.6 (1.0-2.7) L Height (Feet): 6 Height (Inches): 5.00 Weight (Pounds): 235 Medications Current Medications Medications (Trade) Dose Ordered Sig/Fiona Route PRN Reason Start Time Stop Time Status Last Admin Dose Admin Acetaminophen (Tylenol) 650 mg Q4H PRN ORAL Mild Pain (Pain Scale 1-3) 03/09/19 18:30 04/08/19 18:29 Acetaminophen (Tylenol) 650 mg Q4H PRN ORAL fever 03/09/19 18:30 04/08/19 18:29 Acetaminophen/ Codeine Phosphate (Tylenol #3) 1 tab Q6H PRN ORAL For Pain 03/09/19 18:30 03/16/19 18:29 Cyanocobalamin (Vitamin B-12) 500 mcg DAILY ORAL 03/10/19 09:00 04/09/19 08:59 Dextrose (Dextrose 50%) 25 ml Q30M PRN IV Hypoglycemia 03/09/19 18:30 04/08/19 18:29 Dextrose (Dextrose 50%) 50 ml Q30M PRN IV Hypoglycemia 03/09/19 18:30 04/08/19 18:29 Diphenhydramine HCl (Benadryl) 25 mg Q6H PRN ORAL Itching/Pruritis 03/09/19 18:30 04/08/19 18:29 Enoxaparin Sodium (Lovenox) 40 mg Q24H SUBQ 03/09/19 19:30 04/08/19 19:29 Famotidine (Pepcid) 40 mg DAILY ORAL 03/10/19 09:00 04/09/19 08:59 Folic Acid (Folate) 1 mg DAILY ORAL 03/10/19 09:00 04/09/19 08:59 Furosemide (Lasix) 20 mg DAILY ORAL 03/10/19 09:00 04/09/19 08:59 Gabapentin (Neurontin) 100 mg THREE TIMES A DAY ORAL 03/10/19 09:00 04/09/19 08:59 Gadobutrol (Gadavist) 7.5 mmol NOW PRN IV Radiology Procedure 03/09/19 18:00 03/13/19 17:46 Lorazepam (Ativan) 1 mg EVERY 4 HOURS ORAL 03/09/19 21:00 03/16/19 20:59 Morphine Sulfate (Morphine Sulfate) 2 mg Q4H PRN IVP Moderate Pain (Pain Scale 4-6) 03/09/19 18:30 03/16/19 18:29 Morphine Sulfate (Morphine Sulfate) 4 mg Q4H PRN IVP Severe Pain (Pain Scale 7-10) 03/09/19 18:30 03/16/19 18:29 Multivitamins (Multivitamins) 1 tab DAILY ORAL 03/10/19 09:00 04/09/19 08:59 Ondansetron HCl (Zofran) 4 mg Q6H PRN IVP Nausea & Vomiting 03/09/19 18:30 04/08/19 18:29 Piperacillin Sod/ Tazobactam Sod 3.375 gm/Sodium Chloride 110 ml @ 27.5 mls/hr EVERY 8 HOURS IVPB 03/09/19 22:00 03/14/19 21:59 Polyethylene Glycol (Miralax) 17 gm HSPRN PRN ORAL Constipation 03/09/19 18:30 04/08/19 18:29 Spironolactone (Aldactone) 100 mg DAILY ORAL 03/10/19 09:00 04/09/19 08:59 Temazepam (Restoril) 15 mg HSPRN PRN ORAL Insomnia 03/09/19 18:30 03/16/19 18:29 Thiamine HCl (Vitamin B1) 100 mg DAILY ORAL 03/10/19 09:00 04/09/19 08:59 Vancomycin HCl (Vanco rx to dose) 1 ea DAILY PRN MISC Per rx protocol 03/09/19 18:30 04/08/19 18:29 Vancomycin HCl 1 gm/Dextrose 275 ml @ 183.708 mls/hr Q8H IVPB 03/10/19 04:00 03/15/19 03:59 Vancomycin HCl 2 gm/Dextrose 550 ml @ 275 mls/hr ONCE ONCE IVPB 03/09/19 20:00 03/09/19 21:59 Assessment/Plan Status Narrative 43 y/o M admitted due to foot ulcer and pain # L foot V metatarsal fracture with dislocation and open wound PLAIN FILM There is a prominent ulcer along the lateral aspect of the foot near the head of the fifth metatarsal, which should be confirmed clinically. There is a dislocation of the fifth MTP joint as well as a fracture of the head of the fifth metatarsal, which appears abnormally lucent suggesting this may be a pathologic or insufficiency type fracture. Clinical correlation is needed. IMPRESSION: Acute fracture dislocation of the fifth MTP joint as described above. Adjacent ulceration with lucency of the head of the fifth metatarsal is suspicious for acute osteomyelitis which may be superimposed. Please correlate clinically. - Surgery consult appreciated. - MRI foot - Podiatry consult for intervention - Empiric antibiotics started - CRP and ESR ordered - Wound cx - Pain control - DVT ppx FULL CODE Ginger Hoyt MD Mar 09, 2019 19:20
[2019-03-09 19:49] VITALS: BP 122/73
[2019-03-09] MEDS ORDERED: Vancomycin 2gm/D5W 550ml IVPB ONE ×2 (20:00)
[2019-03-09 20:15] LABS: APPEARANCE,URINE CLEAR; BILIRUBIN, URINE NEGATIVE (NEGATIVE); GLUCOSE, URINE (UA) NEGATIVE (NEGATIVE); KETONES,URINE NEGATIVE (NEGATIVE); LEUKOCYTE ESTERASE ,URINE 1+ (NEGATIVE); NITRITE,URINE NEGATIVE (NEGATIVE); PH,URINE 6 (4.5-8.0); PROTEIN,URINE 1+ (NEGATIVE); UROBILINOGEN,URINE 1 MG/DL (0.0-1.0)
[2019-03-09] MEDS ORDERED: Ketorolac 30mg Inj IM ONE (20:15)
[2019-03-09 20:16] LABS: COLOR,URINE YELLOW
[2019-03-09 20:21] LABS: INR 0.9 (0.9-1.1)
[2019-03-09] MEDS ORDERED: Ketorolac 30mg Inj IV ONE (20:45)
--- NOTE | 2019-03-09 20:45 | NUR ---
TRANSFER TO FLOOR: Patient transferred to [facility]. Report given to ТАТЬЯНА Craig
[2019-03-09] MEDS ORDERED: LORazepam 1mg tab ORAL SCH (21:00)
--- NOTE | 2019-03-09 21:00 | NUR ---
NURSE NOTES: Patient admitted from ER via wheelchair. Patient is aox4, ambulatory but nonweight bearing as tolerated on left foot because of the open wound. Belongings verified. Patient refused to send valuables in safe and has his own lock for his backpack. Patient also came in with tablet and 2 cellphones and a laptop. Call light provided for patient, oriented to room and unit. Instructed to call for assistance. Will carry out admission orders.
[2019-03-09 21:18] VITALS: BP 127/83
[2019-03-09] MEDS: Enoxaparin 40mg Inj SUBQ SCH (21:39)
--- NOTE | 2019-03-09 22:15 | NUR ---
NURSE NOTES: Wound care done on left foot as ordered by MD. Pictures taken and uploaded
[2019-03-09] MEDS: Morphine Sulfate 4mg/ml Inj (IV USE ONLY) IVP PRN (22:25)
[2019-03-09] MEDS ORDERED: LORazepam 1mg tab ORAL PRN (22:30)
--- NOTE | 2019-03-09 22:30 | NUR ---
NURSE NOTES: Per patient, he was no longer taking any medications that were listed on medication reconciliation. Spoke with Dr. Hoffman regarding clarifications on home medication. Per Dr. Hoffman, DC medications that were continued by Dr. Hoyt if patient is not currently taking the medications. Asked if we can continue ativan as PRN as patient requested if he cannot fall asleep due to anxiety. Per Dr. Serrano to continue as PRN q4hrs. Also patient is smoker, requested nicotine patch. Cigarettes and 2 lighteres were confiscated from patient and placed in nurse's station with name to be returned once patient is DC/d. Patient also had a bottle of medication/"vitamins" per patient but is inside a bottle labeled ibuprofen 600mg. Meds placed in bag and candace be sent to pharmacy in AM.
[2019-03-09] MEDS: Piperacillin/Tazobactam 3.375 GM in NS 110 ML IVPB SCH (23:36)
[2019-03-09 23:43] VITALS: BP 126/80
[2019-03-10] MEDS ORDERED: NKM (00:42)
[2019-03-10] MEDS: Vancomycin 1gm/D5W 275ml IVPB SCH ×6 (04:18→20:43)
[2019-03-10 04:20] VITALS: BP 121/84
[2019-03-10] MEDS: Piperacillin/Tazobactam 3.375 GM in NS 110 ML IVPB SCH ×3 (06:09→22:19)
[2019-03-10 06:52] LABS: ANION GAP 7 mmol/L (5-15); BLOOD UREA NITROGEN 11 mg/dL (7-18); CALCIUM 8.6 MG/DL (8.5-10.1); CARBON DIOXIDE 29 MMOL/L (21-32); CHLORIDE 103 MMOL/L (98-107); CREATININE 1.1 MG/DL (0.55-1.30); POTASSIUM 3.5 MMOL/L (3.5-5.1); SODIUM 139 MMOL/L (136-145)
--- NOTE | 2019-03-10 07:24 | NUR ---
HAND-OFF: Report given to Brigitte VAZ.
[2019-03-10 08:00] VITALS: BP 126/89
--- NOTE | 2019-03-10 08:37 | NUR ---
NURSE NOTES: Patient is alert and oriented. Dressing on left foot is dry and intact. Patient reports pain on left foot 5/10, but reports he does not want pain medication at this time. Bed is locked, in lowest position, and call light is within reach. Will continue to monitor.
[2019-03-10] MEDS ORDERED: Thiamine 100mg tab ORAL SCH (09:00)
[2019-03-10] MEDS ORDERED: Spironolactone 50mg tab ORAL SCH (09:00)
[2019-03-10] MEDS ORDERED: Vitamin B-12 500mcg tab ORAL SCH (09:00)
[2019-03-10] MEDS: Morphine Sulfate 4mg/ml Inj (IV USE ONLY) IVP PRN ×2 (09:44→20:33)
--- NOTE | 2019-03-10 11:03 | NUR ---
*-* INSURANCE *-* ALL CLINICALS HAVE BEEN FAXED TO: CYNTHIA COSBY: ALICJA REF# [id number] P:[phone] F:[phone] DISCHARGE PLANNING NEEDS CALL [phone]
--- NOTE | 2019-03-10 11:15 | Diagnostic Imaging Report ---
Indication: Chronic ulceration lateral part of the foot. Technique: Left forefoot imaging utilizing multiplanar T1 fast spin-echo, proton and T2 fast spin-echo with fat saturation, and STIR. Comparison: Plain x-ray Findings: There is area of ulceration along the lateral aspect of the foot near the head of the fifth metatarsal. There is destruction of the head of the metatarsal likely on the basis of acute osteomyelitis. Abnormal low T1/high T2 signal and abnormal enhancement associated with this demonstrated within the shaft of the fifth metatarsal. There is no abscess identified. There is intense enhancement of the soft tissues in this region consistent with cellulitis. There is relative sparing of the base of the fifth metatarsal but the majority of the fifth metatarsal distal to the base appears involved. There is relative sparing of the fifth proximal middle and distal phalange which exhibit relatively normal signal. There is a dislocation of the fifth MTP joint. While the abnormal bone marrow edema signal may be due to acute fracture alone, the destructive appearance of the fifth metatarsal head and the presence of adjacent ulceration is by imaging criteria highly suspicious for acute osteomyelitis and infection. Clinical signs and symptoms of infection should be confirmed but the findings overall highly suspicious for acute osteomyelitis with pathologic fracture or destruction of the fifth metatarsal head. IMPRESSION: Findings highly suspicious for acute osteomyelitis of the fifth metatarsal head and shaft with destruction of the head of the fifth metatarsal, pathologic fracture and dislocation of the fifth MTP joint.
[2019-03-10 12:00] VITALS: BP 132/89
--- NOTE | 2019-03-10 12:43 | NUR ---
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
--- NOTE | 2019-03-10 15:45 | General Progress Note ---
Assessment/Plan Status: stable Status Narrative Status Narrative 43 y/o M admitted due to foot ulcer and pain # L foot V metatarsal fracture with dislocation and open wound PLAIN FILM There is a prominent ulcer along the lateral aspect of the foot near the head of the fifth metatarsal, which should be confirmed clinically. There is a dislocation of the fifth MTP joint as well as a fracture of the head of the fifth metatarsal, which appears abnormally lucent suggesting this may be a pathologic or insufficiency type fracture. Clinical correlation is needed. IMPRESSION: Acute fracture dislocation of the fifth MTP joint as described above. Adjacent ulceration with lucency of the head of the fifth metatarsal is suspicious for acute osteomyelitis which may be superimposed. Please correlate clinically. - Surgery consult appreciated. - MRI L foot Findings highly suspicious for acute osteomyelitis of the fifth metatarsal head and shaft with destruction of the head of the fifth metatarsal, pathologic fracture and dislocation of the fifth MTP joint. - Podiatry consult for intervention will be called by Dr. Smalls today. ? Ray amputation vs salvage intervention and antibiotics. - Empiric antibiotics started and ID consulted. PENDING FINAL therapy. - CRP and ESR elevated - Wound cx pending - Pain control. ADD NORCO PRN - DVT ppx FULL CODE Subjective ROS Limited/Unobtainable: Yes Allergies: Coded Allergies: Cat Dander (Unverified Allergy, Unknown, Itching, 03/09/19) Uncoded Allergies: LACTOSE INTOLERANCE (Adverse Reaction, Severe, 06/05/14) FORMATION OF GAS All Systems: reviewed and negative except above Objective Last 24 Hour Vital Signs Date Time Temp Pulse Resp B/P (MAP) Pulse Ox O2 Delivery O2 Flow Rate FiO2 03/10/19 12:00 98.2 86 18 132/89 (103) 96 03/10/19 08:45 Room Air 03/10/19 08:00 98.2 88 18 126/89 (101) 95 03/10/19 04:20 98.2 76 17 121/84 (96) 97 03/09/19 23:43 98.1 93 19 126/80 (95) 95 03/09/19 21:30 Room Air 03/09/19 21:18 99.2 81 19 127/83 (98) 97 03/09/19 20:45 98.7 79 16 125/70 99 Room Air 03/09/19 19:49 98.7 95 16 122/73 99 Room Air 03/09/19 18:00 99 16 128/79 99 Room Air Intake and Output 03/09/19 03/10/19 19:00 07:00 Intake Total 110 ml 1135.000 ml Output Total 300 ml Balance 110 ml 835.000 ml Intake Oral 0 ml 200 ml IV Total 110 ml 935.000 ml Output Urine Total 300 ml Laboratory Tests 03/09/19 20:05: Urine Color Yellow, Urine Appearance Clear, Urine pH 6, Urine Specific [place] 1.015, Urine Protein 1+H, Urine Glucose (UA) Negative, Urine Ketones Negative, Urine Blood 2+H, Urine Nitrite Negative, Urine Bilirubin Negative, Urine Urobilinogen 1H, Urine Leukocyte Esterase 1+H, Urine RBC 2-4H, Urine WBC 5-10H, Urine Squamous Epithelial Cells Occasional, Urine Bacteria Few, Urine Opiates Screen Negative, Urine Barbiturates Screen Negative, Phencyclidine (PCP) Screen Negative, Urine Amphetamines Screen PositiveH, Urine Benzodiazepines Screen Negative, Urine Cocaine Screen Negative, Urine Marijuana (THC) Screen PositiveH 03/10/19 05:10: Sodium Level 139, Potassium Level 3.5, Chloride Level 103, Carbon Dioxide Level 29, Anion Gap 7, Blood Urea Nitrogen 11, Creatinine 1.1, Estimat Glomerular Filtration Rate > 60, Glucose Level 111H, Hemoglobin A1c 4.7, Calcium Level 8.6 Height (Feet): 6 Height (Inches): 5.00 Weight (Pounds): 236 General Appearance: WD/WN EENT: PERRL/EOMI Neck: non-tender Cardiovascular: normal rate Respiratory/Chest: lungs clear Edema: trace edema 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
--- NOTE | 2019-03-10 15:50 | Surgery Progress Note ---
Surgery Progress Note Subjective Additional Comments Patient seen and examined bedside. No acute events. States he is feeling well. Denies nausea vomiting fever chills. Labs noted. Elevated ESR. MRI noted Objective Last 24 Hour Vital Signs Date Time Temp Pulse Resp B/P (MAP) Pulse Ox O2 Delivery O2 Flow Rate FiO2 03/10/19 12:00 98.2 86 18 132/89 (103) 96 03/10/19 08:45 Room Air 03/10/19 08:00 98.2 88 18 126/89 (101) 95 03/10/19 04:20 98.2 76 17 121/84 (96) 97 03/09/19 23:43 98.1 93 19 126/80 (95) 95 03/09/19 21:30 Room Air 03/09/19 21:18 99.2 81 19 127/83 (98) 97 03/09/19 20:45 98.7 79 16 125/70 99 Room Air 03/09/19 19:49 98.7 95 16 122/73 99 Room Air 03/09/19 18:00 99 16 128/79 99 Room Air I&O Intake and Output 03/09/19 03/10/19 19:00 07:00 Intake Total 110 ml 1135.000 ml Output Total 300 ml Balance 110 ml 835.000 ml Intake Oral 0 ml 200 ml IV Total 110 ml 935.000 ml Output Urine Total 300 ml Dressing: saturated Wound: clean Cardiovascular: RSR Respiratory: clear Abdomen: soft, non-tender, present bowel sounds, non-distended Extremities: other Laboratory Tests Test 03/09/19 20:05 03/10/19 05:10 Urine Color Yellow Urine Appearance Clear Urine pH 6 (4.5-8.0) Urine Specific [place] 1.015 (1.005-1.035) Urine Protein 1+ (NEGATIVE) H Urine Glucose (UA) Negative (NEGATIVE) Urine Ketones Negative (NEGATIVE) Urine Blood 2+ (NEGATIVE) H Urine Nitrite Negative (NEGATIVE) Urine Bilirubin Negative (NEGATIVE) Urine Urobilinogen 1 MG/DL (0.0-1.0) H Urine Leukocyte Esterase 1+ (NEGATIVE) H Urine RBC 2-4 /HPF (0 - 0) H Urine WBC 5-10 /HPF (0 - 0) H Urine Squamous Epithelial Cells Occasional /LPF Urine Bacteria Few /HPF (NONE) Urine Opiates Screen Negative (NEGATIVE) Urine Barbiturates Screen Negative (NEGATIVE) Phencyclidine (PCP) Screen Negative (NEGATIVE) Urine Amphetamines Screen Positive (NEGATIVE) H Urine Benzodiazepines Screen Negative (NEGATIVE) Urine Cocaine Screen Negative (NEGATIVE) Urine Marijuana (THC) Screen Positive (NEGATIVE) H Sodium Level 139 MMOL/L (136-145) Potassium Level 3.5 MMOL/L (3.5-5.1) Chloride Level 103 MMOL/L (98-107) Carbon Dioxide Level 29 MMOL/L (21-32) Anion Gap 7 mmol/L (5-15) Blood Urea Nitrogen 11 mg/dL (7-18) Creatinine 1.1 MG/DL (0.55-1.30) Estimat Glomerular Filtration Rate > 60 mL/min (>60) Glucose Level 111 MG/DL (74-106) H Hemoglobin A1c 4.7 % (4.3-6.0) Calcium Level 8.6 MG/DL (8.5-10.1) Plan Problems: (1) Cellulitis Assessment & Plan: 43-year-old male with medical comorbidities as above who is potentially a poor historian presented with worsening ulcer cellulitis and wound of his left leg/foot. Afebrile here and having stable labs noted. Plain films as below. There is a prominent ulcer along the lateral aspect of the foot near the head of the fifth metatarsal, which should be confirmed clinically. There is a dislocation of the fifth MTP joint as well as a fracture of the head of the fifth metatarsal, which appears abnormally lucent suggesting this may be a pathologic or insufficiency type fracture. Clinical correlation is needed. IMPRESSION: Acute fracture dislocation of the fifth MTP joint as described above. Adjacent ulceration with lucency of the head of the fifth metatarsal is suspicious for acute osteomyelitis which may be superimposed. Please correlate clinically. Strong suspicion that there is osteomyelitis at the fifth metatarsal head based on examination where the wound is open and the bone is palpable. Etiology of the wound is still unknown and patient story is somewhat hard to believe Recommend admission for IV antibiotics and further work-up. MRI of the left foot ordered --> indings: There is area of ulceration along the lateral aspect of the foot near the head of the fifth metatarsal. There is destruction of the head of the metatarsal likely on the basis of acute osteomyelitis. Abnormal low T1/high T2 signal and abnormal enhancement associated with this demonstrated within the shaft of the fifth metatarsal. There is no abscess identified. There is intense enhancement of the soft tissues in this region consistent with cellulitis. There is relative sparing of the base of the fifth metatarsal but the majority of the fifth metatarsal distal to the base appears involved. There is relative sparing of the fifth proximal middle and distal phalange which exhibit relatively normal signal. There is a dislocation of the fifth MTP joint. While the abnormal bone marrow edema signal may be due to acute fracture alone, the destructive appearance of the fifth metatarsal head and the presence of adjacent ulceration is by imaging criteria highly suspicious for acute osteomyelitis and infection. Clinical signs and symptoms of infection should be confirmed but the findings overall highly suspicious for acute osteomyelitis with pathologic fracture or destruction of the fifth metatarsal head. IMPRESSION: Findings highly suspicious for acute osteomyelitis of the fifth metatarsal head and shaft with destruction of the head of the fifth metatarsal, pathologic fracture and dislocation of the fifth MTP joint. Podiatry evaluation for foot salvage Thank you for allowing me to participate in patient's care will follow with recommendations Jeffery Rogers Mar 10, 2019 15:50
[2019-03-10 16:00] VITALS: BP 121/77
[2019-03-10] MEDS ORDERED: HYDROcodone/Acetamin 5/325 tab ORAL PRN (16:00)
--- NOTE | 2019-03-10 19:31 | Infectious Diseases Prog Note ---
Assessment/Plan Assessment/Plan Full consult dictated: A) 1) left foot infected wound/ulcer with osteomyelitis and cellulitis, MRI noted 2) pmh noted 3) allergies - nkda P) 1) zosyn and vancomycin 2) check wound culture 3) podiatry f/u 4) thank you Subjective Allergies: Coded Allergies: Cat Dander (Unverified Allergy, Unknown, Itching, 03/09/19) Uncoded Allergies: LACTOSE INTOLERANCE (Adverse Reaction, Severe, 06/05/14) FORMATION OF GAS Objective Vital Signs Last 24 Hour Vital Signs Date Time Temp Pulse Resp B/P (MAP) Pulse Ox O2 Delivery O2 Flow Rate FiO2 03/10/19 16:00 99.0 90 18 121/77 (92) 94 03/10/19 12:00 98.2 86 18 132/89 (103) 96 03/10/19 08:45 Room Air 03/10/19 08:00 98.2 88 18 126/89 (101) 95 03/10/19 04:20 98.2 76 17 121/84 (96) 97 03/09/19 23:43 98.1 93 19 126/80 (95) 95 03/09/19 21:30 Room Air 03/09/19 21:18 99.2 81 19 127/83 (98) 97 03/09/19 20:45 98.7 79 16 125/70 99 Room Air 03/09/19 19:49 98.7 95 16 122/73 99 Room Air Height (Feet): 6 Height (Inches): 5.00 Weight (Pounds): 236 Laboratory Tests Test 03/09/19 20:05 03/10/19 05:10 Urine Color Yellow Urine Appearance Clear Urine pH 6 (4.5-8.0) Urine Specific [place] 1.015 (1.005-1.035) Urine Protein 1+ (NEGATIVE) H Urine Glucose (UA) Negative (NEGATIVE) Urine Ketones Negative (NEGATIVE) Urine Blood 2+ (NEGATIVE) H Urine Nitrite Negative (NEGATIVE) Urine Bilirubin Negative (NEGATIVE) Urine Urobilinogen 1 MG/DL (0.0-1.0) H Urine Leukocyte Esterase 1+ (NEGATIVE) H Urine RBC 2-4 /HPF (0 - 0) H Urine WBC 5-10 /HPF (0 - 0) H Urine Squamous Epithelial Cells Occasional /LPF Urine Bacteria Few /HPF (NONE) Urine Opiates Screen Negative (NEGATIVE) Urine Barbiturates Screen Negative (NEGATIVE) Phencyclidine (PCP) Screen Negative (NEGATIVE) Urine Amphetamines Screen Positive (NEGATIVE) H Urine Benzodiazepines Screen Negative (NEGATIVE) Urine Cocaine Screen Negative (NEGATIVE) Urine Marijuana (THC) Screen Positive (NEGATIVE) H Sodium Level 139 MMOL/L (136-145) Potassium Level 3.5 MMOL/L (3.5-5.1) Chloride Level 103 MMOL/L (98-107) Carbon Dioxide Level 29 MMOL/L (21-32) Anion Gap 7 mmol/L (5-15) Blood Urea Nitrogen 11 mg/dL (7-18) Creatinine 1.1 MG/DL (0.55-1.30) Estimat Glomerular Filtration Rate > 60 mL/min (>60) Glucose Level 111 MG/DL (74-106) H Hemoglobin A1c 4.7 % (4.3-6.0) Calcium Level 8.6 MG/DL (8.5-10.1) Current Medications Medications (Trade) Dose Ordered Sig/Fiona Route PRN Reason Start Time Stop Time Status Last Admin Dose Admin Acetaminophen (Tylenol) 650 mg Q4H PRN ORAL Mild Pain (Pain Scale 1-3) 03/09/19 18:30 04/08/19 18:29 Acetaminophen (Tylenol) 650 mg Q4H PRN ORAL fever 03/09/19 18:30 04/08/19 18:29 Acetaminophen/ Hydrocodone Bitart ([place] 5/325) 1 tab Q4H PRN ORAL Moderate Pain (Pain Scale 4-6) 03/10/19 16:00 03/17/19 15:59 Dextrose (Dextrose 50%) 25 ml Q30M PRN IV Hypoglycemia 03/09/19 18:30 04/08/19 18:29 Dextrose (Dextrose 50%) 50 ml Q30M PRN IV Hypoglycemia 03/09/19 18:30 04/08/19 18:29 Diphenhydramine HCl (Benadryl) 25 mg Q6H PRN ORAL Itching/Pruritis 03/09/19 18:30 04/08/19 18:29 Enoxaparin Sodium (Lovenox) 40 mg Q24H SUBQ 03/09/19 19:30 04/08/19 19:29 03/09/19 21:39 Famotidine (Pepcid) 40 mg DAILY ORAL 03/10/19 09:00 04/09/19 08:59 03/10/19 09:43 Gadobutrol (Gadavist) 7.5 mmol NOW PRN IV Radiology Procedure 03/09/19 18:00 03/13/19 17:46 Lorazepam (Ativan) 1 mg EVERY 4 HOURS PRN ORAL For Anxiety 03/09/19 22:30 03/16/19 20:59 Morphine Sulfate (Morphine Sulfate) 2 mg Q4H PRN IVP Moderate Pain (Pain Scale 4-6) 03/09/19 18:30 03/16/19 18:29 Morphine Sulfate (Morphine Sulfate) 4 mg Q4H PRN IVP Severe Pain (Pain Scale 7-10) 03/09/19 18:30 03/16/19 18:29 03/10/19 09:44 Nicotine (Nicoderm) 1 patch Q24H TDERMAL 03/09/19 22:30 04/08/19 22:29 03/09/19 22:35 Ondansetron HCl (Zofran) 4 mg Q6H PRN IVP Nausea & Vomiting 03/09/19 18:30 04/08/19 18:29 Piperacillin Sod/ Tazobactam Sod 3.375 gm/Sodium Chloride 110 ml @ 27.5 mls/hr EVERY 8 HOURS IVPB 03/09/19 22:00 03/14/19 21:59 03/10/19 14:11 Polyethylene Glycol (Miralax) 17 gm HSPRN PRN ORAL Constipation 03/09/19 18:30 04/08/19 18:29 Temazepam (Restoril) 15 mg HSPRN PRN ORAL Insomnia 03/09/19 18:30 03/16/19 18:29 Vancomycin HCl (Vanco rx to dose) 1 ea DAILY PRN MISC Per rx protocol 03/09/19 18:30 04/08/19 18:29 Vancomycin HCl 1 gm/Dextrose 275 ml @ 183.708 mls/hr Q8H IVPB 03/10/19 04:00 03/15/19 03:59 03/10/19 12:21 Darren Patel MD Mar 10, 2019 19:31
[2019-03-10 20:00] VITALS: BP 125/77
--- NOTE | 2019-03-10 20:00 | NUR ---
NURSE NOTES: Patient received in bed, awake, alert. IV intact and patent. Dressing on wound dry and intact, elevated on a pillow. Call light and personal belongings within reach. Will continue plan of care.
--- NOTE | 2019-03-10 20:04 | NUR ---
HAND-OFF: Report given to ТАТЬЯНА Beatty.
[2019-03-10] MEDS: Enoxaparin 40mg Inj SUBQ SCH (20:34)
--- NOTE | 2019-03-10 20:50 | NUR ---
NURSE NOTES: Patient wound culture collected,as ordered. Wound dressing re-done. Patient tolerated well.
--- NOTE | 2019-03-10 22:00 | Consultation ---
DATE OF CONSULTATION: 03/10/2019 INFECTIOUS DISEASES CONSULTATION CONSULTING PHYSICAN: Darren Patel M.D. ATTENDING PHYSICIAN: Peterson Conway M.D. REFERRING PHYSICIAN: Ginger Hoyt M.D. REASON FOR CONSULTATION: Left foot infected wound and ulcer with osteo and cellulitis. CHIEF COMPLAINT: The patient's chief complaint coming in to the hospital is osteomyelitis of left foot. HISTORY OF PRESENT ILLNESS: This is a very pleasant 43-year-old male, who comes in with left foot wound. The patient has history of wound infection in the past. He does not have any history of diabetes, but has history of neuropathy. The patient was noted to have a left foot wound around the fifth metatarsal area. The patient had an infected wound slough noted. The patient was seen by Surgery and recommended a Podiatry evaluation. MRI of the left foot showed acute osteomyelitis of the fifth metatarsal head and shaft with destruction of the head of the fifth metatarsal. An Infectious Disease consultation is requested. The patient is on vancomycin and Zosyn. Wound cultures have been ordered. Podiatry evaluation is pending. Case discussed with Dr. Hoyt. PAST MEDICAL HISTORY: The patient's past medical history includes the following. The patient has a past medical history of hypertension. No history of diabetes. He has history of neuropathy, history of wound infections, history of spinal cord injury, history of numbness, and hypertension. MEDICATIONS: Upon reviewing the MAR, he is on the following medications. He is on Pepcid and hydrocodone. He is on vancomycin, Zosyn, Lorazepam, and nicotine. He is on enoxaparin and acetaminophen. He is on morphine. He is on Zofran, temazepam, diphenhydramine, and vancomycin. Outside medications were noted and reconciliated. ALLERGIES: Include cat dander, lactulose, and he is lactose intolerant. SOCIAL HISTORY: Negative for smoking, alcohol, or drug abuse. FAMILY HISTORY: Noncontributory. REVIEW OF SYSTEMS: CONSTITUTIONAL: Main issue is left foot pain and wound. He denies any fever or chills. HEAD AND NECK: No head pain or neck pain. CARDIAC: No chest pain. GASTROINTESTINAL: No nausea, vomiting, or diarrhea. GENITOURINARY: No dysuria or frequency. PULMONARY: No shortness of breath. PHYSICAL EXAMINATION: VITAL SIGNS: Temperature is 99.0, pulse rate 90, respiratory rate 18, blood pressure 121/77, and saturating 94%. GENERAL: Alert and responsive, in no acute distress. HEAD AND NECK: Oral exam, no thrush. Eye exam, no icterus. Neck is supple. No JVD. Normocephalic. HEART: Regular. No obvious gallop or murmur. ABDOMEN: Soft. Positive bowel sounds. Nontender. LUNGS: Clear bilaterally. No rhonchi or rales. SKIN: No rash. MUSCULOSKELETAL: No effusion. Legs are without cellulitis. PERIPHERAL VASCULAR: Left foot wound and ulcers noted. Infected with some redness around it. NEUROLOGIC: Intact. LINE SITES: Without phlebitis. GENITOURINARY: No Scott. No obvious gangrene seen, but left foot infected wound was noted with some surrounding redness. LABORATORY DATA: White count 7.5 and hemoglobin 13.9. ESR is 96. Creatinine 1.1. DIAGNOSTIC DATA: Wound culture of the left foot is pending. MRI of the left foot showed the following: It showed findings highly suspicious for acute osteomyelitis of the left fifth metatarsal head and shaft with destruction of the head. ASSESSMENT AND PLAN: 1. The patient has left foot infected wound and ulcer with osteomyelitis and cellulitis. The patient has acute osteomyelitis on MRI involving the fifth metatarsal of the left foot. The patient is on vancomycin and Zosyn. We will continue vancomycin and Zosyn for MRSA gram-negative coverage. Check wound culture. Podiatry followup. Possible debridement. The patient may need amputation, but this will be deferred to Podiatry evaluation and recommendations. Continue vancomycin and Zosyn for now for the left infected wound and ulcer with osteo and cellulitis. 2. Neuropathy. 3. No history of diabetes. 4. Hypertension. 5. Blood pressure treatment per primary. 6. History of wound infection and treatment in the past. 7. History of peripheral neuropathy. 8. History of spinal cord injury. 9. Allergies to cat dander and lactose. 10. Family history is noncontributory. 11. MAR was noted. 12. Case was discussed with RN. 13. Social history is negative. 14. Continue treatment per primary consultants. 15. Case was discussed with Dr. Hoyt. Darren Patel M.D. DR: RODERICK JOB#: [id number] CC:
[2019-03-11] VITALS: BP 124/85
[2019-03-11] MEDS: Vancomycin 1gm/D5W 275ml IVPB SCH ×6 (03:36→20:24)
[2019-03-11 04:00] VITALS: BP 118/85
[2019-03-11] MEDS: Piperacillin/Tazobactam 3.375 GM in NS 110 ML IVPB SCH ×3 (06:06→22:45)
[2019-03-11 06:58] LABS: EOSINOPHILS % (AUTO) 3.3 % (0.0-3.0); HEMATOCRIT 39.6 % (42.0-52.0); HEMOGLOBIN 13.5 G/DL (14.2-18.0); LYMPHOCYTES % (AUTO) 17.7 % (20.0-45.0); MEAN CORPUSCULAR VOLUME 96 FL (80-99); MONOCYTES % (AUTO) 10.8 % (1.0-10.0); NEUTROPHILS % (AUTO) 67.3 % (45.0-75.0); PLATELET COUNT 199 K/UL (150-450); RED BLOOD COUNT 4.13 M/UL (4.70-6.10); RED CELL DISTRIBUTION WIDTH 12.7 % (11.6-14.8); WHITE BLOOD COUNT 5.5 K/UL (4.8-10.8)
[2019-03-11 07:11] LABS: ANION GAP 8 mmol/L (5-15); BLOOD UREA NITROGEN 12 mg/dL (7-18); CARBON DIOXIDE 29 MMOL/L (21-32); CHLORIDE 103 MMOL/L (98-107); CREATININE 1.4 MG/DL (0.55-1.30); POTASSIUM 4.1 MMOL/L (3.5-5.1); SODIUM 140 MMOL/L (136-145)
--- NOTE | 2019-03-11 07:15 | NUR ---
NURSE NOTES: Handoff received from ТАТЬЯНА Beatty. Patient received resting in bed with no visible signs of distress. Patient on room air, with IV site on left forearm, clean dry and intact. Bed in lowest position, call light in reach.
--- NOTE | 2019-03-11 07:17 | NUR ---
HAND-OFF: Report given to Francesco VAZ.
[2019-03-11 08:00] VITALS: BP 127/83
[2019-03-11] MEDS: Morphine Sulfate 4mg/ml Inj (IV USE ONLY) IVP PRN ×3 (09:37→20:24)
[2019-03-11 12:00] VITALS: BP 124/91
--- NOTE | 2019-03-11 13:15 | NUR ---
*-* INSURANCE *-* UPDATED CLINICALS AND REVIEWS HAVE BEEN FAXED TO: CYNTHIA COSBY: ALICJA REF# [id number] P:[phone] F:[phone] DISCHARGE PLANNING NEEDS CALL [phone]
--- NOTE | 2019-03-11 13:34 | NUR ---
ENGINE INSPECTORSANDWICH PEDDLER SI:INFECTED WOUND . OSTEOMYELITIS VS: BP 127/83, P 71, T 98.5, RR 20, SpO2 93 RBC 4.13, H&H 13.5/39.6, Cr 1.4 IS:VANCOMYCIN 275ml IVPB MORPHINE SULFATE 4mg IVP ZOSYN 110ml IVPB PLAN: ZOSYN & VANCOMYCIN WOUND CULTURES PODIATRY F/U MED/SURG STATUS
--- NOTE | 2019-03-11 15:02 | Surgery Progress Note ---
Surgery Progress Note Subjective Additional Comments doing okay pending podiatry eval otherwise well no acute events Objective Last 24 Hour Vital Signs Date Time Temp Pulse Resp B/P (MAP) Pulse Ox O2 Delivery O2 Flow Rate FiO2 03/11/19 12:00 98.5 71 124/91 (102) 03/11/19 09:00 Room Air 03/11/19 08:00 98.6 86 127/83 (98) 03/11/19 04:00 98.6 87 20 118/85 (96) 93 03/11/19 00:00 98.1 89 20 124/85 (98) 100 03/10/19 21:00 Room Air 03/10/19 20:00 99.0 86 20 125/77 (93) 95 03/10/19 16:00 99.0 90 18 121/77 (92) 94 I&O Intake and Output 03/10/19 03/11/19 19:00 07:00 Intake Total 577.5 ml 660.000 ml Output Total 500 ml Balance 577.5 ml 160.000 ml Intake Oral 550 ml IV Total 27.5 ml 660.000 ml Output Urine Total 500 ml # Voids 6 4 # Bowel Movements 1 Dressing: dry Wound: clean Cardiovascular: RSR Respiratory: clear Abdomen: soft, present bowel sounds, non-distended Extremities: no cyanosis, other Laboratory Tests Test 03/10/19 19:15 03/11/19 06:15 Vancomycin Level Trough 17.5 ug/mL (5.0-12.0) H White Blood Count 5.5 K/UL (4.8-10.8) Red Blood Count 4.13 M/UL (4.70-6.10) L Hemoglobin 13.5 G/DL (14.2-18.0) L Hematocrit 39.6 % (42.0-52.0) L Mean Corpuscular Volume 96 FL (80-99) Mean Corpuscular Hemoglobin 32.7 PG (27.0-31.0) H Mean Corpuscular Hemoglobin Concent 34.0 G/DL (32.0-36.0) Red Cell Distribution Width 12.7 % (11.6-14.8) Platelet Count 199 K/UL (150-450) Mean Platelet Volume 6.6 FL (6.5-10.1) Neutrophils (%) (Auto) 67.3 % (45.0-75.0) Lymphocytes (%) (Auto) 17.7 % (20.0-45.0) L Monocytes (%) (Auto) 10.8 % (1.0-10.0) H Eosinophils (%) (Auto) 3.3 % (0.0-3.0) H Basophils (%) (Auto) 1.0 % (0.0-2.0) Sodium Level 140 MMOL/L (136-145) Potassium Level 4.1 MMOL/L (3.5-5.1) Chloride Level 103 MMOL/L (98-107) Carbon Dioxide Level 29 MMOL/L (21-32) Anion Gap 8 mmol/L (5-15) Blood Urea Nitrogen 12 mg/dL (7-18) Creatinine 1.4 MG/DL (0.55-1.30) H Estimat Glomerular Filtration Rate 55.1 mL/min (>60) Glucose Level 99 MG/DL (74-106) Calcium Level 9.0 MG/DL (8.5-10.1) Plan Problems: (1) Cellulitis Assessment & Plan: 43-year-old male with medical comorbidities as above who is potentially a poor historian presented with worsening ulcer cellulitis and wound of his left leg/foot. Afebrile here and having stable labs noted. Plain films as below. There is a prominent ulcer along the lateral aspect of the foot near the head of the fifth metatarsal, which should be confirmed clinically. There is a dislocation of the fifth MTP joint as well as a fracture of the head of the fifth metatarsal, which appears abnormally lucent suggesting this may be a pathologic or insufficiency type fracture. Clinical correlation is needed. IMPRESSION: Acute fracture dislocation of the fifth MTP joint as described above. Adjacent ulceration with lucency of the head of the fifth metatarsal is suspicious for acute osteomyelitis which may be superimposed. Please correlate clinically. Strong suspicion that there is osteomyelitis at the fifth metatarsal head based on examination where the wound is open and the bone is palpable. Etiology of the wound is still unknown and patient story is somewhat hard to believe Recommend admission for IV antibiotics and further work-up. MRI of the left foot ordered --> indings: There is area of ulceration along the lateral aspect of the foot near the head of the fifth metatarsal. There is destruction of the head of the metatarsal likely on the basis of acute osteomyelitis. Abnormal low T1/high T2 signal and abnormal enhancement associated with this demonstrated within the shaft of the fifth metatarsal. There is no abscess identified. There is intense enhancement of the soft tissues in this region consistent with cellulitis. There is relative sparing of the base of the fifth metatarsal but the majority of the fifth metatarsal distal to the base appears involved. There is relative sparing of the fifth proximal middle and distal phalange which exhibit relatively normal signal. There is a dislocation of the fifth MTP joint. While the abnormal bone marrow edema signal may be due to acute fracture alone, the destructive appearance of the fifth metatarsal head and the presence of adjacent ulceration is by imaging criteria highly suspicious for acute osteomyelitis and infection. Clinical signs and symptoms of infection should be confirmed but the findings overall highly suspicious for acute osteomyelitis with pathologic fracture or destruction of the fifth metatarsal head. IMPRESSION: Findings highly suspicious for acute osteomyelitis of the fifth metatarsal head and shaft with destruction of the head of the fifth metatarsal, pathologic fracture and dislocation of the fifth MTP joint. Podiatry evaluation for foot salvage Thank you for allowing me to participate in patient's care will follow with recommendations Jeffery Rogers Mar 11, 2019 15:02
--- NOTE | 2019-03-11 15:39 | Consultation ---
Consult Note Assessment/Plan A/ 1) Osteomyelitis left 5th metatarsal 2) Peripheral Neuropathy 3) Tinea Pedis P/ 1) Picture diagram was used to show patient infected bone. Both conservative and surgical options were discussed with patient. Patient was advised that he may still require prolonged abx course after surgery depending on the surgical margins. He understands and wishes to consider his options. He feels he may want the surgery. 2) Cont abx per ID 3) Econazole cream ordered 4) D/W nurse and orders for NPO and consent placed. Tentatively scheduled for Thursday at 11:30am if patient wishes to move forward Thank you Enmanuel Kim DPM Mar 11, 2019 15:39
[2019-03-11 16:00] VITALS: BP 123/80
--- NOTE | 2019-03-11 16:45 | General Progress Note ---
Assessment/Plan Status: stable Assessment/Plan: Status: stable Status Narrative Status Narrative 43 y/o M admitted due to foot ulcer and pain # L foot V metatarsal fracture with dislocation and open wound, most likely osteomyelitis. - Surgery and podiatry consult appreciated. - MRI L foot Findings highly suspicious for acute osteomyelitis of the fifth metatarsal head and shaft with destruction of the head of the fifth metatarsal, pathologic fracture and dislocation of the fifth MTP joint. - Podiatry consult for intervention will be called by Dr. Smalls today. ? Ray amputation vs salvage intervention and antibiotics. Patient deciding about surgery and possible intervention this Thursday. - Empiric antibiotics started and ID consulted. PENDING FINAL therapy. - CRP and ESR elevated - Wound cx pending - Pain control. NORCO PRN - DVT ppx Subjective Allergies: Coded Allergies: Cat Dander (Unverified Allergy, Unknown, Itching, 03/09/19) Uncoded Allergies: LACTOSE INTOLERANCE (Adverse Reaction, Severe, 06/05/14) FORMATION OF GAS All Systems: reviewed and negative except above Subjective Pain the L foot Objective Last 24 Hour Vital Signs Date Time Temp Pulse Resp B/P (MAP) Pulse Ox O2 Delivery O2 Flow Rate FiO2 03/11/19 12:00 98.5 71 124/91 (102) 03/11/19 09:00 Room Air 03/11/19 08:00 98.6 86 127/83 (98) 03/11/19 04:00 98.6 87 20 118/85 (96) 93 03/11/19 00:00 98.1 89 20 124/85 (98) 100 03/10/19 21:00 Room Air 03/10/19 20:00 99.0 86 20 125/77 (93) 95 Intake and Output 03/10/19 03/11/19 19:00 07:00 Intake Total 577.5 ml 660.000 ml Output Total 500 ml Balance 577.5 ml 160.000 ml Intake Oral 550 ml IV Total 27.5 ml 660.000 ml Output Urine Total 500 ml # Voids 6 4 # Bowel Movements 1 Laboratory Tests 03/10/19 19:15: Vancomycin Level Trough 17.5H 03/11/19 06:15: White Blood Count 5.5, Red Blood Count 4.13L, Hemoglobin 13.5L, Hematocrit 39.6L , Mean Corpuscular Volume 96, Mean Corpuscular Hemoglobin 32.7H, Mean Corpuscular Hemoglobin Concent 34.0, Red Cell Distribution Width 12.7, Platelet Count 199, Mean Platelet Volume 6.6, Neutrophils (%) (Auto) 67.3, Lymphocytes (% ) (Auto) 17.7L, Monocytes (%) (Auto) 10.8H, Eosinophils (%) (Auto) 3.3H, Basophils (%) (Auto) 1.0, Sodium Level 140, Potassium Level 4.1, Chloride Level 103, Carbon Dioxide Level 29, Anion Gap 8, Blood Urea Nitrogen 12, Creatinine 1.4H, Estimat Glomerular Filtration Rate 55.1, Glucose Level 99, Calcium Level 9.0 Height (Feet): 6 Height (Inches): 5.00 Weight (Pounds): 236 General Appearance: WD/WN EENT: PERRL/EOMI Neck: non-tender Cardiovascular: normal peripheral pulses Respiratory/Chest: chest wall non-tender Abdomen: normal bowel sounds Neurologic: e learning designer II-XII grossly normal Skin: normal pigmentation Ginger Hoyt MD Mar 11, 2019 16:45
--- NOTE | 2019-03-11 17:30 | Consultation ---
DATE OF CONSULTATION: 03/11/2019 CONSULTING PHYSICIAN: Enmanuel Kim D.P.M. REQUESTING PHYSICIAN: 1. Peterson Conway M.D. 2. JACK Rogers M.D. REASON FOR CONSULTATION: Osteomyelitis, left foot. HISTORY OF PRESENT ILLNESS: The patient is a 43-year-old male who was admitted to [facility] on March 09, 2019 for osteomyelitis. The patient states that the problem began approximately a year ago on the left foot. He has been following with the differential specialist intermittently for the condition and mainly self treating. 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 Currently he denies any pain, fevers, chills, nausea, or vomiting. 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 MEDICATIONS: Per MAR and currently include vancomycin, Zosyn, Lovenox. ALLERGIES: He is allergic to cat dander and lactose. SOCIAL HISTORY: The patient is a smoker. FAMILY HISTORY: Noncontributory. REVIEW OF SYSTEMS: HEENT: The patient denies any headaches, blurred vision, ringing in the ears. CARDIOVASCULAR: The patient denies any chest pain or shortness of breath. GENITOURINARY: The patient denies any urgency, frequency, burning upon urination, or hematuria. GASTROINTESTINAL: The patient denies any constipation, diarrhea, or blood in stool. PHYSICAL EXAMINATION: VITAL SIGNS: Temperature is 98.5, pulse 71, respiration rate is 20, blood pressure is 124/91, saturating 93% on room air. LOWER EXTREMITY PHYSICAL EXAM: VASCULAR: Palpable pedal pulses noted bilaterally. Feet are equally warm. There is no edema or cyanosis noted. DERMATOLOGICAL: No ulcers or lesions are noted on the right foot. Left foot, there is a hyperkeratotic lesion noted on the plantar aspect of the left foot, sub third metatarsal head. There is a full-thickness ulceration noted on the plantar lateral aspect of the fifth metatarsal head area. Wound probes to bone. There is serous drainage noted from the site. No malodor noted. No periwound erythema. NEUROLOGICAL: Protective threshold is absent. MUSCULOSKELETAL: No gross deformities are noted. The patient ambulates without assistance. LABORATORY DATA: INR is 0.9. Potassium is 4.1, BUN is 12, creatinine is 1.4, and glucose is 99. Hemoglobin A1c is 4.7. Albumin is 3.4. C-reactive protein is 4.3. ESR is 96. White blood cell count is 5.5, hemoglobin and hematocrit is 13.5 and 39.6, and platelet count is 199. Tox screen is positive for amphetamines and THC. ASSESSMENT: 1. Osteomyelitis of the left fifth metatarsal. 2. Peripheral neuropathy. 3. Tinea pedis. PLAN: 1. Discussed using a photo diagram. Discussed with the patient conservative and surgical options, recovery chances were discussed. Nonweightbearing status required during either option, the patient understands. He is considering surgical option at this point, understands that even with the surgical option, the margins are necessary to determine whether you would require additional use of antibiotics. I will consider it over the weekend. 2. Continue antibiotics per ID. 3. Econazole cream ordered. 4. Discussed with nurse and orders placed for NPO and consent. We will tentatively plan the procedure for Thursday. Thank you for the courtesy of this consultation. Enmanuel Kim D.P.M. DR: Stephanie JOB#: [id number] CC: LINDA
[2019-03-11] MEDS: Econazole 1% Cream 15gm TOPIC SCH (18:05)
[2019-03-11 20:00] VITALS: BP_SYST 121; BP_SYST 136; BP_DIAS 76; BP_DIAS 83
--- NOTE | 2019-03-11 20:07 | NUR ---
HAND-OFF: Report given to RONIT VAZ.
--- NOTE | 2019-03-11 20:09 | NUR ---
NURSE NOTES: Pt received awake in bed, asking for pain medication, able to make needs known, call light within reach, was spoken to about possible surgery, bed in lowest position, left foot wrapped clean and intact, will continue to monitor.
[2019-03-11] MEDS: Enoxaparin 40mg Inj SUBQ SCH (20:26)
[2019-03-12] VITALS: BP 121/76
[2019-03-12 04:00] VITALS: BP 122/79
[2019-03-12] MEDS: Vancomycin 1gm/D5W 275ml IVPB SCH ×6 (04:05→20:18)
[2019-03-12] MEDS: Piperacillin/Tazobactam 3.375 GM in NS 110 ML IVPB SCH ×3 (06:02→23:12)
[2019-03-12 08:00] VITALS: BP 127/87
--- NOTE | 2019-03-12 08:00 | NUR ---
NURSE NOTES: received pt in bed, awake, alert. No complaint of pain or discomfort. Receiving IV atb at LFA access,no sign of infiltration noted. Left foot dressing dry, intact. Bed l;ocked at the lowest position possible, call light within easy reach, siderails up x2. Will continue to monitor pt and follow up with the plan of care,
--- NOTE | 2019-03-12 08:04 | NUR ---
HAND-OFF: Report given to ТАТЬЯНА Kaminski.
[2019-03-12] MEDS: Econazole 1% Cream 15gm TOPIC SCH (09:34)
[2019-03-12] MEDS: Morphine Sulfate 2mg/ml Inj(IV/IM USE ONLY) IVP PRN (09:35)
--- NOTE | 2019-03-12 11:36 | General Progress Note ---
Assessment/Plan Status: stable Assessment/Plan: Status: stable Status Narrative Status Narrative 43 y/o M admitted due to foot ulcer and pain # L foot V metatarsal fracture with dislocation and open wound, most likely osteomyelitis. - Surgery and podiatry consult appreciated. - MRI L foot Findings highly suspicious for acute osteomyelitis of the fifth metatarsal head and shaft with destruction of the head of the fifth metatarsal, pathologic fracture and dislocation of the fifth MTP joint. - Podiatry consult for intervention will be called by Dr. Smalls today. ? Ray amputation vs salvage intervention and antibiotics. Patient deciding about surgery and possible intervention this Thursday. - Empiric antibiotics started and ID consulted. PENDING FINAL therapy. - CRP and ESR elevated - Wound cx pending - Pain control. NORCO PRN - DVT ppx Subjective ROS Limited/Unobtainable: Yes Gastrointestinal/Abdominal: Reports: other - loose stool noted. No diarrhea Allergies: Coded Allergies: Cat Dander (Unverified Allergy, Unknown, Itching, 03/09/19) Uncoded Allergies: LACTOSE INTOLERANCE (Adverse Reaction, Severe, 06/05/14) FORMATION OF GAS Subjective Pain the L foot Objective Last 24 Hour Vital Signs Date Time Temp Pulse Resp B/P (MAP) Pulse Ox O2 Delivery O2 Flow Rate FiO2 03/12/19 10:05 98.1 03/12/19 08:00 98.1 83 18 127/87 (100) 93 03/12/19 04:00 98.6 78 20 122/79 (93) 99 03/12/19 00:00 98.4 71 20 121/76 (91) 97 03/11/19 21:00 Room Air 03/11/19 20:00 99.0 80 20 136/83 (100) 96 03/11/19 16:00 98.8 77 14 123/80 (94) 97 03/11/19 12:00 98.5 71 124/91 (102) Intake and Output 03/11/19 03/12/19 19:00 07:00 Intake Total 800 ml Output Total 600 ml Balance 200 ml Intake Oral 800 ml Output Urine Total 600 ml # Voids 3 Height (Feet): 6 Height (Inches): 5.00 Weight (Pounds): 236 Ginger Hoyt MD Mar 12, 2019 11:36
[2019-03-12 12:00] VITALS: BP 121/81
[2019-03-12] MEDS: Morphine Sulfate 4mg/ml Inj (IV USE ONLY) IVP PRN ×3 (14:48→23:29)
--- NOTE | 2019-03-12 14:56 | Surgery Progress Note ---
Surgery Progress Note Subjective Additional Comments doing well stable comfortable seen by podiatry patient ready for surgery Objective Last 24 Hour Vital Signs Date Time Temp Pulse Resp B/P (MAP) Pulse Ox O2 Delivery O2 Flow Rate FiO2 03/12/19 12:00 98.9 76 18 121/81 (94) 96 03/12/19 10:05 98.1 03/12/19 09:00 Room Air 03/12/19 08:00 98.1 83 18 127/87 (100) 93 03/12/19 04:00 98.6 78 20 122/79 (93) 99 03/12/19 00:00 98.4 71 20 121/76 (91) 97 03/11/19 21:00 Room Air 03/11/19 20:00 99.0 80 20 136/83 (100) 96 03/11/19 16:00 98.8 77 14 123/80 (94) 97 I&O Intake and Output 03/11/19 03/12/19 19:00 07:00 Intake Total 800 ml Output Total 600 ml Balance 200 ml Intake Oral 800 ml Output Urine Total 600 ml # Voids 3 Dressing: dry Wound: clean Cardiovascular: RSR Respiratory: clear Abdomen: soft, present bowel sounds, non-distended Extremities: edema, cyanosis, no tenderness Plan Problems: (1) Cellulitis Assessment & Plan: 43-year-old male with medical comorbidities as above who is potentially a poor historian presented with worsening ulcer cellulitis and wound of his left leg/foot. Afebrile here and having stable labs noted. Plain films as below. There is a prominent ulcer along the lateral aspect of the foot near the head of the fifth metatarsal, which should be confirmed clinically. There is a dislocation of the fifth MTP joint as well as a fracture of the head of the fifth metatarsal, which appears abnormally lucent suggesting this may be a pathologic or insufficiency type fracture. Clinical correlation is needed. IMPRESSION: Acute fracture dislocation of the fifth MTP joint as described above. Adjacent ulceration with lucency of the head of the fifth metatarsal is suspicious for acute osteomyelitis which may be superimposed. Please correlate clinically. Strong suspicion that there is osteomyelitis at the fifth metatarsal head based on examination where the wound is open and the bone is palpable. Etiology of the wound is still unknown and patient story is somewhat hard to believe Recommend admission for IV antibiotics and further work-up. MRI of the left foot ordered --> indings: There is area of ulceration along the lateral aspect of the foot near the head of the fifth metatarsal. There is destruction of the head of the metatarsal likely on the basis of acute osteomyelitis. Abnormal low T1/high T2 signal and abnormal enhancement associated with this demonstrated within the shaft of the fifth metatarsal. There is no abscess identified. There is intense enhancement of the soft tissues in this region consistent with cellulitis. There is relative sparing of the base of the fifth metatarsal but the majority of the fifth metatarsal distal to the base appears involved. There is relative sparing of the fifth proximal middle and distal phalange which exhibit relatively normal signal. There is a dislocation of the fifth MTP joint. While the abnormal bone marrow edema signal may be due to acute fracture alone, the destructive appearance of the fifth metatarsal head and the presence of adjacent ulceration is by imaging criteria highly suspicious for acute osteomyelitis and infection. Clinical signs and symptoms of infection should be confirmed but the findings overall highly suspicious for acute osteomyelitis with pathologic fracture or destruction of the fifth metatarsal head. IMPRESSION: Findings highly suspicious for acute osteomyelitis of the fifth metatarsal head and shaft with destruction of the head of the fifth metatarsal, pathologic fracture and dislocation of the fifth MTP joint. appreciate podiatry input amputation thursday Thank you for allowing me to participate in patient's care will follow with recommendations Jeffery Rogers Mar 12, 2019 14:56
[2019-03-12 16:00] VITALS: BP 121/80
--- NOTE | 2019-03-12 16:05 | NUR ---
YACHT [employer] SI:OSTEOMYELITIS OF THE FOOT VS: BP 121/80, P 75, T 99.5, RR 19, SPO2 97 IS:MORPHINE SULFATE 2mg IVP VANCOMYCIN 275ml IVPB 3E MED/SURG STATUS
--- NOTE | 2019-03-12 17:43 | Infectious Diseases Prog Note ---
Assessment/Plan Assessment/Plan ASSESSMENT AND PLAN: 1. left foot wound infection/ulcer with osteomyelitis and cellulitis, tinea pedis - zosyn and vancomycin - check final wound culture - plan on amputation, f/u on margins - on econazole cream per podiatry - monitor labs 2. Neuropathy. 3. No history of diabetes. 4. Hypertension. 5. Blood pressure treatment per primary. 6. History of wound infection and treatment in the past. 7. History of peripheral neuropathy. 8. History of spinal cord injury. 9. Allergies to cat dander and lactose. 10. Family history is noncontributory. 11. MAR was noted. 12. Case was discussed with RN. 13. Social history is negative. 14. Continue treatment per primary consultants. 15. Case was discussed with Dr. Hoyt. Subjective Constitutional: Denies: fever HEENT: Denies: congestion Respiratory: Denies: shortness of breath Cardiovascular: Denies: chest pain Gastrointestinal/Abdominal: Denies: nausea, vomiting, diarrhea Neurologic: Denies: headache Psychiatric: Denies: depression Skin: Denies: rash Hematologic: Denies: bleeding Musculoskeletal: Denies: pain Allergies: Coded Allergies: Cat Dander (Unverified Allergy, Unknown, Itching, 03/09/19) Uncoded Allergies: LACTOSE INTOLERANCE (Adverse Reaction, Severe, 06/05/14) FORMATION OF GAS Objective Vital Signs Last 24 Hour Vital Signs Date Time Temp Pulse Resp B/P (MAP) Pulse Ox O2 Delivery O2 Flow Rate FiO2 03/12/19 16:00 99.5 75 19 121/80 (94) 97 03/12/19 15:18 98.9 03/12/19 12:00 98.9 76 18 121/81 (94) 96 03/12/19 10:05 98.1 03/12/19 09:00 Room Air 03/12/19 08:00 98.1 83 18 127/87 (100) 93 03/12/19 04:00 98.6 78 20 122/79 (93) 99 03/12/19 00:00 98.4 71 20 121/76 (91) 97 03/11/19 21:00 Room Air 03/11/19 20:00 99.0 80 20 136/83 (100) 96 Height (Feet): 6 Height (Inches): 5.00 Weight (Pounds): 236 General Appearance: no acute distress HEENT: normocephalic, atraumatic, anicteric, mucous membranes moist Respiratory/Chest: lungs clear, normal breath sounds, no respiratory distress, no accessory muscle use Cardiovascular: normal rate, regular rhythm, no gallop/murmur, no JVD Abdomen: normal bowel sounds, soft, non tender, no organomegaly, non distended Genitourinary: other - no carpenter Extremities: no cyanosis Skin: no rash 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 Microbiology Date/Time Source Procedure Growth Status 03/10/19 20:50 Wound Gram Stain - Final Resulted 03/10/19 20:50 Wound Culture - Preliminary Gram Positive Cocci Resulted 03/09/19 22:40 Nasal Nares MRSA Culture - Final NO METHICILLIN RESISTANT STAPH AUREUS... Complete Labs Test 03/09/19 20:05 03/10/19 05:10 03/10/19 19:15 03/11/19 06:15 Urine Color Yellow Urine Appearance Clear Urine pH 6 (4.5-8.0) Urine Specific [place] 1.015 (1.005-1.035) Urine Protein 1+ (NEGATIVE) Urine Glucose (UA) Negative (NEGATIVE) Urine Ketones Negative (NEGATIVE) Urine Blood 2+ (NEGATIVE) Urine Nitrite Negative (NEGATIVE) Urine Bilirubin Negative (NEGATIVE) Urine Urobilinogen 1 MG/DL (0.0-1.0) Urine Leukocyte Esterase 1+ (NEGATIVE) Urine RBC 2-4 /HPF (0 - 0) Urine WBC 5-10 /HPF (0 - 0) Urine Squamous Epithelial Cells Occasional /LPF Urine Bacteria Few /HPF (NONE) Urine Opiates Screen Negative (NEGATIVE) Urine Barbiturates Screen Negative (NEGATIVE) Phencyclidine (PCP) Screen Negative (NEGATIVE) Urine Amphetamines Screen Positive (NEGATIVE) Urine Benzodiazepines Screen Negative (NEGATIVE) Urine Cocaine Screen Negative (NEGATIVE) Urine Marijuana (THC) Screen Positive (NEGATIVE) Sodium Level 139 MMOL/L (136-145) 140 MMOL/L (136-145) Potassium Level 3.5 MMOL/L (3.5-5.1) 4.1 MMOL/L (3.5-5.1) Chloride Level 103 MMOL/L (98-107) 103 MMOL/L (98-107) Carbon Dioxide Level 29 MMOL/L (21-32) 29 MMOL/L (21-32) Anion Gap 7 mmol/L (5-15) 8 mmol/L (5-15) Blood Urea Nitrogen 11 mg/dL (7-18) 12 mg/dL (7-18) Creatinine 1.1 MG/DL (0.55-1.30) 1.4 MG/DL (0.55-1.30) Estimat Glomerular Filtration Rate > 60 mL/min (>60) 55.1 mL/min (>60) Glucose Level 111 MG/DL (74-106) 99 MG/DL (74-106) Hemoglobin A1c 4.7 % (4.3-6.0) Calcium Level 8.6 MG/DL (8.5-10.1) 9.0 MG/DL (8.5-10.1) Vancomycin Level Trough 17.5 ug/mL (5.0-12.0) White Blood Count 5.5 K/UL (4.8-10.8) Red Blood Count 4.13 M/UL (4.70-6.10) Hemoglobin 13.5 G/DL (14.2-18.0) Hematocrit 39.6 % (42.0-52.0) Mean Corpuscular Volume 96 FL (80-99) Mean Corpuscular Hemoglobin 32.7 PG (27.0-31.0) Mean Corpuscular Hemoglobin Concent 34.0 G/DL (32.0-36.0) Red Cell Distribution Width 12.7 % (11.6-14.8) Platelet Count 199 K/UL (150-450) Mean Platelet Volume 6.6 FL (6.5-10.1) Neutrophils (%) (Auto) 67.3 % (45.0-75.0) Lymphocytes (%) (Auto) 17.7 % (20.0-45.0) Monocytes (%) (Auto) 10.8 % (1.0-10.0) Eosinophils (%) (Auto) 3.3 % (0.0-3.0) Basophils (%) (Auto) 1.0 % (0.0-2.0) Current Medications Medications (Trade) Dose Ordered Sig/Fiona Route PRN Reason Start Time Stop Time Status Last Admin Dose Admin Acetaminophen (Tylenol) 650 mg Q4H PRN ORAL Mild Pain (Pain Scale 1-3) 03/09/19 18:30 04/08/19 18:29 Acetaminophen (Tylenol) 650 mg Q4H PRN ORAL fever 03/09/19 18:30 04/08/19 18:29 Acetaminophen/ Hydrocodone Bitart (Camp 5/325) 1 tab Q4H PRN ORAL Moderate Pain (Pain Scale 4-6) 03/10/19 16:00 03/17/19 15:59 Dextrose (Dextrose 50%) 25 ml Q30M PRN IV Hypoglycemia 03/09/19 18:30 04/08/19 18:29 Dextrose (Dextrose 50%) 50 ml Q30M PRN IV Hypoglycemia 03/09/19 18:30 04/08/19 18:29 Diphenhydramine HCl (Benadryl) 25 mg Q6H PRN ORAL Itching/Pruritis 03/09/19 18:30 04/08/19 18:29 Econazole Nitrate (Spectazole) 1 applic DAILY TOPIC 03/11/19 17:00 04/10/19 16:59 03/12/19 09:34 Enoxaparin Sodium (Lovenox) 40 mg Q24H SUBQ 03/09/19 19:30 04/08/19 19:29 03/11/19 20:26 Famotidine (Pepcid) 40 mg DAILY ORAL 03/10/19 09:00 04/09/19 08:59 03/12/19 09:34 Gadobutrol (Gadavist) 7.5 mmol NOW PRN IV Radiology Procedure 03/09/19 18:00 03/13/19 17:46 Lorazepam (Ativan) 1 mg EVERY 4 HOURS PRN ORAL For Anxiety 03/09/19 22:30 03/16/19 20:59 Morphine Sulfate (Morphine Sulfate) 2 mg Q4H PRN IVP Moderate Pain (Pain Scale 4-6) 03/09/19 18:30 03/16/19 18:29 03/12/19 09:35 Morphine Sulfate (Morphine Sulfate) 4 mg Q4H PRN IVP Severe Pain (Pain Scale 7-10) 03/09/19 18:30 03/16/19 18:29 03/12/19 14:48 Nicotine (Nicoderm) 1 patch Q24H TDERMAL 03/09/19 22:30 04/08/19 22:29 03/11/19 22:45 Ondansetron HCl (Zofran) 4 mg Q6H PRN IVP Nausea & Vomiting 03/09/19 18:30 04/08/19 18:29 Piperacillin Sod/ Tazobactam Sod 3.375 gm/Sodium Chloride 110 ml @ 27.5 mls/hr EVERY 8 HOURS IVPB 03/09/19 22:00 03/14/19 21:59 03/12/19 14:48 Polyethylene Glycol (Miralax) 17 gm HSPRN PRN ORAL Constipation 03/09/19 18:30 04/08/19 18:29 Temazepam (Restoril) 15 mg HSPRN PRN ORAL Insomnia 03/09/19 18:30 03/16/19 18:29 Vancomycin HCl (Vanco rx to dose) 1 ea DAILY PRN MISC Per rx protocol 03/09/19 18:30 04/08/19 18:29 Vancomycin HCl 1 gm/Dextrose 275 ml @ 183.708 mls/hr Q8H IVPB 03/10/19 04:00 03/15/19 03:59 03/12/19 12:11 Darren Patel MD Mar 12, 2019 17:43
--- NOTE | 2019-03-12 19:35 | NUR ---
HAND-OFF: Report given to ТАТЬЯНА Roman.
--- NOTE | 2019-03-12 19:45 | NUR ---
NURSE NOTES: Pt received in bed alert and oriented with no c/o pain just received pain medication at 6:49pm, dressing on foot changed clean and intact, will continue to monitor, able to make needs known, call light within reach.
[2019-03-12 20:00] VITALS: BP 118/77
[2019-03-12] MEDS: Enoxaparin 40mg Inj SUBQ SCH (20:17)
[2019-03-13] VITALS: BP 133/84
[2019-03-13 04:00] VITALS: BP 102/60
[2019-03-13] MEDS: Vancomycin 1gm/D5W 275ml IVPB SCH ×6 (04:23→20:00)
[2019-03-13] MEDS: Piperacillin/Tazobactam 3.375 GM in NS 110 ML IVPB SCH (06:19)
[2019-03-13 06:20] LABS: BASOPHILS % (AUTO) 1.2 % (0.0-2.0); EOSINOPHILS % (AUTO) 3.4 % (0.0-3.0); HEMATOCRIT 40.5 % (42.0-52.0); HEMOGLOBIN 13.9 G/DL (14.2-18.0); MEAN CORPUSCULAR VOLUME 96 FL (80-99); MONOCYTES % (AUTO) 9.9 % (1.0-10.0); NEUTROPHILS % (AUTO) 65.5 % (45.0-75.0); PLATELET COUNT 211 K/UL (150-450); RED BLOOD COUNT 4.21 M/UL (4.70-6.10); RED CELL DISTRIBUTION WIDTH 12.4 % (11.6-14.8); WHITE BLOOD COUNT 5.8 K/UL (4.8-10.8)
[2019-03-13 07:07] LABS: ANION GAP 11 mmol/L (5-15); BLOOD UREA NITROGEN 14 mg/dL (7-18); CARBON DIOXIDE 26 MMOL/L (21-32); CHLORIDE 104 MMOL/L (98-107); CREATININE 1.8 MG/DL (0.55-1.30); POTASSIUM 3.8 MMOL/L (3.5-5.1); SODIUM 140 MMOL/L (136-145)
--- NOTE | 2019-03-13 07:40 | NUR ---
HAND-OFF: Report given to ТАТЬЯНА Huang.
--- NOTE | 2019-03-13 07:55 | NUR ---
NURSE NOTES: Patient awake alert x4, on room air, no sign of distress and shortness of breath; no sign of chest pain; IV LFA 22G Zosyn running; Left-Foot dressing dry and intact, will change dressing this shift; side rails up x2, breaks engaged, bed at lowest position; patient gave breakfast order, called kitchen as the order patient gave; call light within reach, will keep monitoring.
[2019-03-13 08:00] VITALS: BP 128/71
[2019-03-13] MEDS: Econazole 1% Cream 15gm TOPIC SCH (08:33)
[2019-03-13] MEDS: Morphine Sulfate 4mg/ml Inj (IV USE ONLY) IVP PRN ×4 (08:35→21:43)
--- NOTE | 2019-03-13 11:00 | NUR ---
NURSE NOTES: Patient asked to take shower, towel and soap provided.
[2019-03-13 12:00] VITALS: BP 127/88
--- NOTE | 2019-03-13 13:00 | NUR ---
NURSE NOTES: Wound care provided, patient tolerated well.
--- NOTE | 2019-03-13 13:30 | General Progress Note ---
Assessment/Plan Status: stable Assessment/Plan: Status: stable 43 y/o M admitted due to foot ulcer and pain # L foot V metatarsal fracture with dislocation and open wound, most likely osteomyelitis. - Surgery and podiatry consult appreciated. - MRI L foot Findings highly suspicious for acute osteomyelitis of the fifth metatarsal head and shaft with destruction of the head of the fifth metatarsal, pathologic fracture and dislocation of the fifth MTP joint. - Podiatry consult for intervention Ray amputation vs salvage intervention and antibiotics. Podiatry intervention this Thursday 11: [address] Kim - Vancomycin and Zosyn antibiotics started and ID consulted. PENDING FINAL therapy. Today, Zosyn dose adjusted to 2.25 g IV q 6 hr due to GFR decreased to almost 40 ( acute) - CRP and ESR elevated - Wound cx pending - Pain control. NORCO PRN # ANTHONY Etiology prerenal vs AIN due to antibiotics vs other IVF NS 125 cc hr Urine studies Monitor response in the renal function Nephrology consultation # History of recreational substance use ( MJ) - Counselling. - DVT ppx - FULL CODE Subjective ROS Limited/Unobtainable: No Allergies: Coded Allergies: Cat Dander (Unverified Allergy, Unknown, Itching, 03/09/19) Uncoded Allergies: LACTOSE INTOLERANCE (Adverse Reaction, Severe, 06/05/14) FORMATION OF GAS Subjective Pain the L foot is stable. He took a shower today and is feeling better. Ready for surgery tomorrow. Objective Last 24 Hour Vital Signs Date Time Temp Pulse Resp B/P (MAP) Pulse Ox O2 Delivery O2 Flow Rate FiO2 03/13/19 12:00 97.3 84 18 127/88 (101) 95 03/13/19 09:05 97.7 03/13/19 09:00 Room Air 03/13/19 08:00 97.7 73 18 128/71 (90) 96 03/13/19 04:00 98.6 81 20 102/60 (74) 96 03/13/19 00:00 99.3 62 20 133/84 (100) 96 03/12/19 21:00 Room Air 03/12/19 20:00 99.0 83 20 118/77 (91) 96 03/12/19 16:00 99.5 75 19 121/80 (94) 97 Intake and Output 03/12/19 03/13/19 19:00 07:00 Intake Total 360 ml 717.416 ml Output Total 700 ml Balance -340 ml 717.416 ml Intake Oral 360 ml 240 ml IV Total 477.416 ml Output Urine Total 700 ml # Voids 3 Laboratory Tests 03/13/19 04:38: White Blood Count 5.8, Red Blood Count 4.21L, Hemoglobin 13.9L, Hematocrit 40.5L , Mean Corpuscular Volume 96, Mean Corpuscular Hemoglobin 33.1H, Mean Corpuscular Hemoglobin Concent 34.4, Red Cell Distribution Width 12.4, Platelet Count 211, Mean Platelet Volume 6.7, Neutrophils (%) (Auto) 65.5, Lymphocytes (% ) (Auto) 20.0, Monocytes (%) (Auto) 9.9, Eosinophils (%) (Auto) 3.4H, Basophils (%) (Auto) 1.2, Sodium Level 140, Potassium Level 3.8, Chloride Level 104, Carbon Dioxide Level 26, Anion Gap 11, Blood Urea Nitrogen 14, Creatinine 1.8H, Estimat Glomerular Filtration Rate 41.2, Glucose Level 92, Calcium Level 9.0 Height (Feet): 6 Height (Inches): 5.00 Weight (Pounds): 236 General Appearance: WD/WN EENT: PERRL/EOMI Neck: non-tender Cardiovascular: normal rate Respiratory/Chest: lungs clear 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
--- NOTE | 2019-03-13 13:53 | NUR ---
NURSE NOTES: Urine collected and drop to the lab. Waiting for result.
[2019-03-13 14:02] LABS: APPEARANCE,URINE CLEAR; BILIRUBIN, URINE NEGATIVE (NEGATIVE); COLOR,URINE PALE YELLOW; GLUCOSE, URINE (UA) NEGATIVE (NEGATIVE); KETONES,URINE NEGATIVE (NEGATIVE); LEUKOCYTE ESTERASE ,URINE 1+ (NEGATIVE); NITRITE,URINE NEGATIVE (NEGATIVE); PH,URINE 5 (4.5-8.0); PROTEIN,URINE NEGATIVE (NEGATIVE); UROBILINOGEN,URINE NORMAL MG/DL (0.0-1.0)
--- NOTE | 2019-03-13 14:29 | Consultation ---
History of Present Illness General Chief Complaint: Skin Rash/Abscess Present Illness HPI worsening LEFT foot ulceration and pain. Patient stated that a year ago he was at an event in [place] "comic con" where he developed a blister on his left foot plantar aspect around the metatarsal joints which then became an open wound. States that during this time while placing dressing on the wound he removed the tape once quickly and this caused him to develop a wound on the lateral aspect of the foot. 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 He states that he has been on gabapentin for some time now he does not recall any other trauma to the extremity. Patient has been on vancomycin and zosyn per ID. [facility] Cr [facility] is normal. However over the past 2-3 days its has started on rise to 1.8 today. On presentation Cr noted to be 0.8. Allergies: Coded Allergies: Cat Dander (Unverified Allergy, Unknown, Itching, 03/09/19) Uncoded Allergies: LACTOSE INTOLERANCE (Adverse Reaction, Severe, 06/05/14) FORMATION OF GAS Medication History Scheduled No Known Medications* (NKM - No Known Medications*), 0 ., (Reported) Discontinued Medications Amoxicillin/Potassium Clav 875-125* (Augmentin 875-125 Tablet*), 1 TAB ORAL TWICE A DAY, (Reported) Discontinued Reason: Therapy completed Ciprofloxacin Hcl (Ciprofloxacin Hcl*), 750 MG ORAL Q12HR Discontinued Reason: Therapy completed Codeine/Promethazine Hcl* (Promethazine-Codeine Syrup*), 5 ML ORAL Q6H PRN for For Cough Discontinued Reason: Therapy completed Ibuprofen* (Motrin*), 600 MG ORAL Q8H PRN for Fever/Headache/Mild Pain Discontinued Reason: Therapy completed Loratadine (Claritin), 10 MG ORAL DAILY, (Reported) Discontinued Reason: Therapy completed No Known Medications* (NKM - No Known Medications*), 0 ., (Reported) Discontinued Reason: Therapy completed Pantoprazole* (Protonix*), 40 MG ORAL DAILY Discontinued Reason: Therapy completed Prochlorperazine Maleate* (Compazine*), Unknown Dose ORAL TID, (Reported) Discontinued Reason: Therapy completed Trimethoprim/Sulfamethoxazole 160/800* (Bactrim Ds Tablet*), 2 TAB ORAL TWICE A DAY, (Reported) Discontinued Reason: Therapy completed Patient History Healthcare decision maker N Resuscitation status Full Code Advanced Directive on File Review of Systems Constitutional: Denies: no symptoms, see HPI, chills, sweats, fever, malaise, weakness, other Eye: Denies: no symptoms, see HPI, eye pain, blurred vision, tearing, double vision, nose pain, nose congestion, acuity changes, discharge, other ENT: Denies: no symptoms, see HPI, ear pain, ear discharge, nose pain, nose congestion, throat pain, throat swelling, mouth pain, hearing loss, nasal discharge, other Respiratory: Denies: no symptoms, see HPI, cough, orthopnea, shortness of breath, stridor, wheezing, MUNOZ, sputum, other Cardiovascular: Denies: no symptoms, see HPI, chest pain, edema, palpitations, syncope, PND, other Gastrointestinal: Denies: no symptoms, see HPI, abdominal pain, constipation, diarrhea, nausea, vomiting, melena, hematemesis, other Genitourinary: Denies: no symptoms, see HPI, discharge, dysuria, frequency, hematuria, pain, retention, incontinence, urgency, vag bleed/dc, other Musculoskeletal: Denies: no symptoms, see HPI, back pain, gout, joint pain, joint swelling, muscle pain, muscle stiffness, other Skin: Denies: no symptoms, see HPI, rash, change in color, change in hair/nails , dryness, lesions, other Psychiatric: Denies: no symptoms, see HPI, prior hx, anxiety, depressed feelings, emotional problems, SI, HI, hallucinations, other Physical Exam General Appearance: WD/WN, no apparent distress Lines, tubes and drains: peripheral HEENT: normocephalic, atraumatic Neck: non-tender, normal alignment, supple Respiratory/Chest: chest wall non-tender, lungs clear Cardiovascular/Chest: normal rate, regular rhythm Abdomen: normal bowel sounds, non tender Neurologic: alert, oriented x 3, responsive Last 24 Hour Vital Signs Date Time Temp Pulse Resp B/P (MAP) Pulse Ox O2 Delivery O2 Flow Rate FiO2 03/13/19 13:29 97.3 03/13/19 12:00 97.3 84 18 127/88 (101) 95 03/13/19 09:00 Room Air 03/13/19 08:00 97.7 73 18 128/71 (90) 96 03/13/19 04:00 98.6 81 20 102/60 (74) 96 03/13/19 00:00 99.3 62 20 133/84 (100) 96 03/12/19 21:00 Room Air 03/12/19 20:00 99.0 83 20 118/77 (91) 96 03/12/19 16:00 99.5 75 19 121/80 (94) 97 Intake and Output 03/12/19 03/13/19 19:00 07:00 Intake Total 360 ml 717.416 ml Output Total 700 ml Balance -340 ml 717.416 ml Intake Oral 360 ml 240 ml IV Total 477.416 ml Output Urine Total 700 ml # Voids 3 Laboratory Tests Test 03/13/19 04:38 03/13/19 13:45 White Blood Count 5.8 K/UL (4.8-10.8) Red Blood Count 4.21 M/UL (4.70-6.10) L Hemoglobin 13.9 G/DL (14.2-18.0) L Hematocrit 40.5 % (42.0-52.0) L Mean Corpuscular Volume 96 FL (80-99) Mean Corpuscular Hemoglobin 33.1 PG (27.0-31.0) H Mean Corpuscular Hemoglobin Concent 34.4 G/DL (32.0-36.0) Red Cell Distribution Width 12.4 % (11.6-14.8) Platelet Count 211 K/UL (150-450) Mean Platelet Volume 6.7 FL (6.5-10.1) Neutrophils (%) (Auto) 65.5 % (45.0-75.0) Lymphocytes (%) (Auto) 20.0 % (20.0-45.0) Monocytes (%) (Auto) 9.9 % (1.0-10.0) Eosinophils (%) (Auto) 3.4 % (0.0-3.0) H Basophils (%) (Auto) 1.2 % (0.0-2.0) Sodium Level 140 MMOL/L (136-145) Potassium Level 3.8 MMOL/L (3.5-5.1) Chloride Level 104 MMOL/L (98-107) Carbon Dioxide Level 26 MMOL/L (21-32) Anion Gap 11 mmol/L (5-15) Blood Urea Nitrogen 14 mg/dL (7-18) Creatinine 1.8 MG/DL (0.55-1.30) H Estimat Glomerular Filtration Rate 41.2 mL/min (>60) Glucose Level 92 MG/DL (74-106) Calcium Level 9.0 MG/DL (8.5-10.1) Urine Color Pale yellow Urine Appearance Clear Urine pH 5 (4.5-8.0) Urine Specific [place] 1.015 (1.005-1.035) Urine Protein Negative (NEGATIVE) Urine Glucose (UA) Negative (NEGATIVE) Urine Ketones Negative (NEGATIVE) Urine Blood 1+ (NEGATIVE) H Urine Nitrite Negative (NEGATIVE) Urine Bilirubin Negative (NEGATIVE) Urine Urobilinogen Normal MG/DL (0.0-1.0) Urine Leukocyte Esterase 1+ (NEGATIVE) H Urine RBC 0-2 /HPF (0 - 0) H Urine WBC 0-2 /HPF (0 - 0) Urine Squamous Epithelial Cells Occasional /LPF Urine Bacteria Occasional /HPF (NONE) Urine Eosinophils Pending Urine Random Sodium 61 mmol/L (20-110) Urine Creatinine 101.6 MG/DL (30.0-125.0) Height (Feet): 6 Height (Inches): 5.00 Weight (Pounds): 236 Medications Current Medications Medications (Trade) Dose Ordered Sig/Fiona Route PRN Reason Start Time Stop Time Status Last Admin Dose Admin Acetaminophen (Tylenol) 650 mg Q4H PRN ORAL Mild Pain (Pain Scale 1-3) 03/09/19 18:30 04/08/19 18:29 Acetaminophen (Tylenol) 650 mg Q4H PRN ORAL fever 03/09/19 18:30 04/08/19 18:29 Acetaminophen/ Hydrocodone Bitart ([place] 5/325) 1 tab Q4H PRN ORAL Moderate Pain (Pain Scale 4-6) 03/10/19 16:00 03/17/19 15:59 Dextrose (Dextrose 50%) 25 ml Q30M PRN IV Hypoglycemia 03/09/19 18:30 04/08/19 18:29 Dextrose (Dextrose 50%) 50 ml Q30M PRN IV Hypoglycemia 03/09/19 18:30 04/08/19 18:29 Diphenhydramine HCl (Benadryl) 25 mg Q6H PRN ORAL Itching/Pruritis 03/09/19 18:30 04/08/19 18:29 Econazole Nitrate (Spectazole) 1 applic DAILY TOPIC 03/11/19 17:00 04/10/19 16:59 03/13/19 08:33 Enoxaparin Sodium (Lovenox) 40 mg Q24H SUBQ 03/09/19 19:30 04/08/19 19:29 03/12/19 20:17 Famotidine (Pepcid) 40 mg DAILY ORAL 03/10/19 09:00 04/09/19 08:59 03/13/19 08:33 Gadobutrol (Gadavist) 7.5 mmol NOW PRN IV Radiology Procedure 03/09/19 18:00 03/13/19 17:46 Lorazepam (Ativan) 1 mg EVERY 4 HOURS PRN ORAL For Anxiety 03/09/19 22:30 03/16/19 20:59 Morphine Sulfate (Morphine Sulfate) 2 mg Q4H PRN IVP Moderate Pain (Pain Scale 4-6) 03/09/19 18:30 03/16/19 18:29 03/12/19 09:35 Morphine Sulfate (Morphine Sulfate) 4 mg Q4H PRN IVP Severe Pain (Pain Scale 7-10) 03/09/19 18:30 03/16/19 18:29 03/13/19 12:59 Nicotine (Nicoderm) 1 patch Q24H TDERMAL 03/09/19 22:30 04/08/19 22:29 03/12/19 23:10 Ondansetron HCl (Zofran) 4 mg Q6H PRN IVP Nausea & Vomiting 03/09/19 18:30 04/08/19 18:29 Piperacillin Sod/ Tazobactam Sod 2.25 gm/Dextrose 55 ml @ 110 mls/hr EVERY 6 HOURS IVPB 03/13/19 18:00 03/18/19 17:59 Polyethylene Glycol (Miralax) 17 gm HSPRN PRN ORAL Constipation 03/09/19 18:30 04/08/19 18:29 Potassium Chloride 10 meq/ Dextrose/Sodium Chloride 1,005 ml @ 75 mls/hr [id number] IV 03/14/19 00:00 04/13/19 00:00 Sodium Chloride 1,000 ml @ 125 mls/hr Q8H IV 03/13/19 12:45 03/14/19 23:59 03/13/19 12:59 Temazepam (Restoril) 15 mg HSPRN PRN ORAL Insomnia 03/09/19 18:30 03/16/19 18:29 Vancomycin HCl (Vanco rx to dose) 1 ea DAILY PRN MISC Per rx protocol 03/09/19 18:30 04/08/19 18:29 Vancomycin HCl 1 gm/Dextrose 275 ml @ 183.708 mls/hr Q8H IVPB 03/10/19 04:00 03/15/19 03:59 03/13/19 12:58 Assessment/Plan Problem List: (1) Cellulitis ICD Codes: L03.90 - Cellulitis, unspecified SNOMED: 462159367 (2) Dehydration (3) Anemia ICD Codes: D64.9 - Anemia SNOMED: 849154878 Qualifiers: (4) Osteomyelitis of left foot ICD Codes: M86.9 - Osteomyelitis, unspecified SNOMED: [id number], 321274113, 602341208 (5) Cirrhosis of liver ICD Codes: K74.60 - Unspecified cirrhosis of liver SNOMED: 43077319 (6) Jaundice ICD Codes: R17 - Jaundice SNOMED: 71384254 (7) Pancreatitis ICD Codes: K85.9 - Acute pancreatitis, unspecified SNOMED: 51079242 Diagnosis [place] I: #ANTHONY - pre-renal vs vanco induced nephrotoxicity vsAIN in the setting of zosyn # osteo of left foot #elevated liver enzymes - agree with IVF challenge- NS at 125cc x 1L - NPO after midnight - start maintainance fluid while NPO - check urine chemistries - check urine eos - avoid supratherapeutic vanco level - zosyn dose adjusted - monitor UOP - strict I&Os Rosangela Galvez M.D. Mar 13, 2019 14:29
[2019-03-13 15:57] VITALS: BP 120/84
--- NOTE | 2019-03-13 16:09 | NUR ---
BEHAVIORAL PEDIATRICIANMETER TESTER SI: OSTEOMYELITIS OF THE FOOT VS: BP 102/60, P 81, T 98.6, RR 2, SpO2 96 RBC 4.21, H&H 13.9/40.5, CR 1.8 IS:VANCOMYCIN 275ml IVPB MORPHINE SULFATE 4mg ZOSYN 110mls IVPB NS x1L IV PLAN: AMPUTATION OF L5TH TRANSMETATARSAL 3E MED/SURG STATUS
[2019-03-13] MEDS: Piperacillin/Tazobactam 2.25 GM in D5W 55 ML IVPB SCH (17:20)
--- NOTE | 2019-03-13 18:00 | NUR ---
NURSE NOTES: Patient gonna be NPO, sign posted at the door. Patient is aware.
--- NOTE | 2019-03-13 19:18 | NUR ---
NURSE NOTES: Pt received awake alert and in bed eating, aware that he will be NPO at Midnight preparing to have surgery tomorrow, call light within reach, able to make needs known, no c/o pain at the moment, dressing changed clean and intact, will continue to monitor.
[2019-03-13] MEDS: Enoxaparin 40mg Inj SUBQ SCH (19:30)
--- NOTE | 2019-03-13 19:36 | NUR ---
HAND-OFF: Report given to ТАТЬЯНА Zavaleta.
--- NOTE | 2019-03-13 19:57 | Surgery Progress Note ---
Surgery Progress Note Subjective Additional Comments doing well in good spirit after taking a shower today exam stable Objective Last 24 Hour Vital Signs Date Time Temp Pulse Resp B/P (MAP) Pulse Ox O2 Delivery O2 Flow Rate FiO2 03/13/19 17:50 97.0 03/13/19 15:57 97.0 76 18 120/84 (96) 94 03/13/19 12:00 97.3 84 18 127/88 (101) 95 03/13/19 09:00 Room Air 03/13/19 08:00 97.7 73 18 128/71 (90) 96 03/13/19 04:00 98.6 81 20 102/60 (74) 96 03/13/19 00:00 99.3 62 20 133/84 (100) 96 03/12/19 21:00 Room Air 03/12/19 20:00 99.0 83 20 118/77 (91) 96 I&O Intake and Output 03/12/19 03/13/19 19:00 07:00 Intake Total 360 ml 717.416 ml Output Total 700 ml Balance -340 ml 717.416 ml Intake Oral 360 ml 240 ml IV Total 477.416 ml Output Urine Total 700 ml # Voids 3 Dressing: saturated Wound: clean Cardiovascular: RSR Respiratory: clear Abdomen: soft, non-tender, present bowel sounds Extremities: other Laboratory Tests Test 03/13/19 04:38 03/13/19 13:45 White Blood Count 5.8 K/UL (4.8-10.8) Red Blood Count 4.21 M/UL (4.70-6.10) L Hemoglobin 13.9 G/DL (14.2-18.0) L Hematocrit 40.5 % (42.0-52.0) L Mean Corpuscular Volume 96 FL (80-99) Mean Corpuscular Hemoglobin 33.1 PG (27.0-31.0) H Mean Corpuscular Hemoglobin Concent 34.4 G/DL (32.0-36.0) Red Cell Distribution Width 12.4 % (11.6-14.8) Platelet Count 211 K/UL (150-450) Mean Platelet Volume 6.7 FL (6.5-10.1) Neutrophils (%) (Auto) 65.5 % (45.0-75.0) Lymphocytes (%) (Auto) 20.0 % (20.0-45.0) Monocytes (%) (Auto) 9.9 % (1.0-10.0) Eosinophils (%) (Auto) 3.4 % (0.0-3.0) H Basophils (%) (Auto) 1.2 % (0.0-2.0) Sodium Level 140 MMOL/L (136-145) Potassium Level 3.8 MMOL/L (3.5-5.1) Chloride Level 104 MMOL/L (98-107) Carbon Dioxide Level 26 MMOL/L (21-32) Anion Gap 11 mmol/L (5-15) Blood Urea Nitrogen 14 mg/dL (7-18) Creatinine 1.8 MG/DL (0.55-1.30) H Estimat Glomerular Filtration Rate 41.2 mL/min (>60) Glucose Level 92 MG/DL (74-106) Calcium Level 9.0 MG/DL (8.5-10.1) Urine Color Pale yellow Urine Appearance Clear Urine pH 5 (4.5-8.0) Urine Specific [place] 1.015 (1.005-1.035) Urine Protein Negative (NEGATIVE) Urine Glucose (UA) Negative (NEGATIVE) Urine Ketones Negative (NEGATIVE) Urine Blood 1+ (NEGATIVE) H Urine Nitrite Negative (NEGATIVE) Urine Bilirubin Negative (NEGATIVE) Urine Urobilinogen Normal MG/DL (0.0-1.0) Urine Leukocyte Esterase 1+ (NEGATIVE) H Urine RBC 0-2 /HPF (0 - 0) H Urine WBC 0-2 /HPF (0 - 0) Urine Squamous Epithelial Cells Occasional /LPF Urine Bacteria Occasional /HPF (NONE) Urine Eosinophils None seen (NONE SEEN) Urine Random Sodium 61 mmol/L (20-110) Urine Creatinine 101.6 MG/DL (30.0-125.0) Plan Problems: (1) Cellulitis Assessment & Plan: 43-year-old male with medical comorbidities as above who is potentially a poor historian presented with worsening ulcer cellulitis and wound of his left leg/foot. Afebrile here and having stable labs noted. Plain films as below. There is a prominent ulcer along the lateral aspect of the foot near the head of the fifth metatarsal, which should be confirmed clinically. There is a dislocation of the fifth MTP joint as well as a fracture of the head of the fifth metatarsal, which appears abnormally lucent suggesting this may be a pathologic or insufficiency type fracture. Clinical correlation is needed. IMPRESSION: Acute fracture dislocation of the fifth MTP joint as described above. Adjacent ulceration with lucency of the head of the fifth metatarsal is suspicious for acute osteomyelitis which may be superimposed. Please correlate clinically. Strong suspicion that there is osteomyelitis at the fifth metatarsal head based on examination where the wound is open and the bone is palpable. Etiology of the wound is still unknown and patient story is somewhat hard to believe Recommend admission for IV antibiotics and further work-up. MRI of the left foot ordered --> indings: There is area of ulceration along the lateral aspect of the foot near the head of the fifth metatarsal. There is destruction of the head of the metatarsal likely on the basis of acute osteomyelitis. Abnormal low T1/high T2 signal and abnormal enhancement associated with this demonstrated within the shaft of the fifth metatarsal. There is no abscess identified. There is intense enhancement of the soft tissues in this region consistent with cellulitis. There is relative sparing of the base of the fifth metatarsal but the majority of the fifth metatarsal distal to the base appears involved. There is relative sparing of the fifth proximal middle and distal phalange which exhibit relatively normal signal. There is a dislocation of the fifth MTP joint. While the abnormal bone marrow edema signal may be due to acute fracture alone, the destructive appearance of the fifth metatarsal head and the presence of adjacent ulceration is by imaging criteria highly suspicious for acute osteomyelitis and infection. Clinical signs and symptoms of infection should be confirmed but the findings overall highly suspicious for acute osteomyelitis with pathologic fracture or destruction of the fifth metatarsal head. IMPRESSION: Findings highly suspicious for acute osteomyelitis of the fifth metatarsal head and shaft with destruction of the head of the fifth metatarsal, pathologic fracture and dislocation of the fifth MTP joint. appreciate podiatry input amputation thursday Thank you for allowing me to participate in patient's care will follow with recommendations Jeffery Rogers Mar 13, 2019 19:57
[2019-03-13 20:00] VITALS: BP 128/74
[2019-03-14] VITALS (13 sets, daily range): BP systolic 113–137; BP diastolic 70–88
[2019-03-14] MEDS: Piperacillin/Tazobactam 2.25 GM in D5W 55 ML IVPB SCH ×2 (00:55→06:21)
[2019-03-14] MEDS: Potassium Chloride 10 MEQ in D5 1/2NS 1,000 ML IV SCH ×2 (00:55→14:27)
[2019-03-14] MEDS: Vancomycin 1gm/D5W 275ml IVPB SCH ×4 (04:29→14:28)
[2019-03-14] MEDS: Morphine Sulfate 4mg/ml Inj (IV USE ONLY) IVP PRN ×3 (04:29→22:23)
[2019-03-14 06:40] LABS: BASOPHILS % (AUTO) 0.9 % (0.0-2.0); EOSINOPHILS % (AUTO) 3.6 % (0.0-3.0); HEMATOCRIT 37.3 % (42.0-52.0); HEMOGLOBIN 12.6 G/DL (14.2-18.0); LYMPHOCYTES % (AUTO) 15.6 % (20.0-45.0); MEAN CORPUSCULAR VOLUME 96 FL (80-99); MONOCYTES % (AUTO) 6.9 % (1.0-10.0); PLATELET COUNT 176 K/UL (150-450); RED CELL DISTRIBUTION WIDTH 12.2 % (11.6-14.8); WHITE BLOOD COUNT 6.1 K/UL (4.8-10.8)
[2019-03-14 07:08] LABS: ANION GAP 10 mmol/L (5-15); BLOOD UREA NITROGEN 12 mg/dL (7-18); CALCIUM 8.8 MG/DL (8.5-10.1); CARBON DIOXIDE 25 MMOL/L (21-32); CHLORIDE 104 MMOL/L (98-107); CREATININE 1.6 MG/DL (0.55-1.30); POTASSIUM 3.6 MMOL/L (3.5-5.1); SODIUM 139 MMOL/L (136-145)
--- NOTE | 2019-03-14 07:24 | NUR ---
HAND-OFF: Report given to ТАТЬЯНА Kaminski.
--- NOTE | 2019-03-14 07:48 | NUR ---
NURSE NOTES: received pt in bed, asleep. No sign of pain or discomfort. Receiving IV atb at LFA access,no sign of infiltration noted. Left foot dressing dry, intact. Bed locked at the lowest position possible, call light within easy reach, siderails up x3. Will continue to monitor pt and follow up with the plan of care.
[2019-03-14] MEDS: Econazole 1% Cream 15gm TOPIC SCH (09:00)
--- NOTE | 2019-03-14 09:43 | Nephrology Progress Note ---
Assessment/Plan Problem List: (1) Cellulitis (2) Dehydration (3) Anemia (4) Osteomyelitis of left foot (5) Cirrhosis of liver (6) Jaundice (7) Pancreatitis Plan #ANTHONY - pre-renal vs vanco induced nephrotoxicity vsAIN in the setting of zosyn # osteo of left foot #elevated liver enzymes - continue maintainance fluid while NPO - check urine eos-> negative - avoid supratherapeutic vanco level - zosyn dose adjusted - monitor UOP - monitor Cr and BMP daily - strict I&Os Subjective Interval Events/Complaints no acute events overnight Cr improving to 1.6 Going to OR today Objective Objective Last 24 Hour Vital Signs Date Time Temp Pulse Resp B/P (MAP) Pulse Ox O2 Delivery O2 Flow Rate FiO2 03/14/19 08:00 98.1 82 18 137/88 (104) 96 03/14/19 04:00 98.0 67 18 136/70 (92) 95 03/14/19 00:00 98.1 73 18 122/71 (88) 95 03/13/19 21:00 Room Air 03/13/19 20:00 98.0 79 18 128/74 (92) 96 03/13/19 17:50 97.0 03/13/19 15:57 97.0 76 18 120/84 (96) 94 03/13/19 12:00 97.3 84 18 127/88 (101) 95 Intake and Output 03/13/19 03/14/19 19:00 07:00 Intake Total 1637.416 ml 492.416 ml Output Total 600 ml Balance 1037.416 ml 492.416 ml Intake Oral 800 ml IV Total 837.416 ml 492.416 ml Output Urine Total 600 ml # Voids 5 3 Laboratory Tests 03/13/19 13:45: Urine Color Pale yellow, Urine Appearance Clear, Urine pH 5, Urine Specific [place] 1.015, Urine Protein Negative, Urine Glucose (UA) Negative, Urine Ketones Negative, Urine Blood 1+H, Urine Nitrite Negative, Urine Bilirubin Negative, Urine Urobilinogen Normal, Urine Leukocyte Esterase 1+H, Urine RBC 0- 2H, Urine WBC 0-2, Urine Squamous Epithelial Cells Occasional, Urine Bacteria Occasional, Urine Eosinophils None seen, Urine Random Sodium 61, Urine Creatinine 101.6 03/14/19 05:05: White Blood Count 6.1, Red Blood Count 3.90L, Hemoglobin 12.6L, Hematocrit 37.3L , Mean Corpuscular Volume 96, Mean Corpuscular Hemoglobin 32.2H, Mean Corpuscular Hemoglobin Concent 33.6, Red Cell Distribution Width 12.2, Platelet Count 176, Mean Platelet Volume 7.0, Neutrophils (%) (Auto) 73.0, Lymphocytes (% ) (Auto) 15.6L, Monocytes (%) (Auto) 6.9, Eosinophils (%) (Auto) 3.6H, Basophils (%) (Auto) 0.9, Prothrombin Time 10.4, Prothromb Time International Ratio 1.0, Activated Partial Thromboplast Time 31, Sodium Level 139, Potassium Level 3.6, Chloride Level 104, Carbon Dioxide Level 25, Anion Gap 10, Blood Urea Nitrogen 12, Creatinine 1.6H, Estimat Glomerular Filtration Rate 47.2, Glucose Level 107H, Calcium Level 8.8 Height (Feet): 6 Height (Inches): 5.00 Weight (Pounds): 236 Rosangela Galvez M.D. Mar 14, 2019 09:43
[2019-03-14] MEDS ORDERED: Bupivacaine 0.25% Inj 30ml INJ ONE (10:35)
[2019-03-14] MEDS ORDERED: Midazolam 2mg/2ml Inj ONE (11:14)
[2019-03-14] MEDS ORDERED: fentaNYL 100 mcg/2 mL IV ONE (11:14)
[2019-03-14] MEDS ORDERED: Lidocaine 1% MPF 10mg/ml 5ml ONE (11:16)
[2019-03-14] MEDS ORDERED: Propofol 200mg/20ml IV ONE (11:16)
[2019-03-14] MEDS ORDERED: NS Irrig 1000ml ONE (11:30)
[2019-03-14] MEDS ORDERED: NS Irrig 1000ml IRRIG ONE (11:30)
[2019-03-14] MEDS ORDERED: Sterile Water Irrig 1000ml IRRIG ONE (11:30)
[2019-03-14] MEDS ORDERED: Betadine 4oz Bottle TOPIC ONE (11:30)
--- NOTE | 2019-03-14 11:36 | Pre-Procedure Note/Attestation ---
Pre-Procedure Note/Attestation Complete Prior to Procedure Planned Procedure: left Procedure Narrative: Left partial 5th ray amputation with bone biopsy and wound closure Indications for Procedure Pre-Operative Diagnosis: 1) Osteomyelitis left foot 2) Chronic complex wound left foot 3) Peripheral Neuropathy Attestation I attest that I discussed the nature of the procedure; its benefits; risks and complications; and alternatives (and the risks and benefits of such alternatives ), prior to the procedure, with the patient (or the patient's legal open claims representative). I attest that, if there was a reasonable possibility of needing a blood transfusion, the patient (or the patient's legal open claims representative) was given the [place] Department [employer] Services standardized written summary, pursuant to the [place] Blood Safety Act ([place] Health and Safety Code # 1645, as amended). I attest that I re-evaluated the patient just prior to the surgery and that there has been no change in the patient's H&P, except as documented below: Enmanuel Kim DPM Mar 14, 2019 11:36
[2019-03-14] MEDS ORDERED: LR 1000ml 1,000 ML IVLG SCH (12:18)
--- NOTE | 2019-03-14 12:18 | Anethesia Preoperative Eval ---
Anesthesia Pre-op PMH/ROS General Date of Evaluation: Mar 14, 2019 Time of Evaluation: 09:20 Anesthesiologist: Rodney ASA Score: ASA 3 Mallampati Score Class I : Soft palate, uvula, fauces, pillars visible Class II: Soft palate, uvula, fauces visible Class III: Soft palate, base of uvula visible Class IV: Only hard plate visible Mallampati Classification: Class II Surgeon: King Diagnosis: L 5-th metatarsal osteomyelitis Surgical Procedure: L 5-th metatarsal amputation Anesthesia History: none Family History: no anesthesia problems Allergies: Coded Allergies: Cat Dander (Unverified Allergy, Unknown, Itching, 03/09/19) Uncoded Allergies: LACTOSE INTOLERANCE (Adverse Reaction, Severe, 06/05/14) FORMATION OF GAS Patient NPO?: Yes NPO Date: Mar 13, 2019 NPO Time: 2358 Past Medical History Cardiovascular: Reports: HTN; Denies: CAD, NV, valve dz, arrhythmia, other Pulmonary: Denies: asthma, COPD, ABDOULAYE, other Gastrointestinal/Genitourinary: Reports: GERD, CRI, other - Liver cirrosis, pancreatitis; Denies: ESRD Neurologic/Psychiatric: Reports: depression/anxiety, other - Chronic pain neuropathy; Denies: dementia, CVA, TIA Endocrine: Denies: DM, hypothyroidism, steroids, other HEENT: Denies: cataract (L), cataract (R), glaucoma, SENECA (L), SENECA (R), other Hematology/Immune: Reports: anemia; Denies: DVT, bleeding disorder, other Musculoskeletal/Integumentary: Reports: other - as above PMH Narrative: as above PSxH Narrative: Endoscopies Anesthesia Pre-op Phys. Exam Physician Exam Last Vital Signs Date Time Temp Pulse Resp B/P (MAP) Pulse Ox O2 Delivery O2 Flow Rate FiO2 03/14/19 08:00 98.1 82 18 137/88 (104) 96 03/13/19 21:00 Room Air Constitutional: NAD Neurologic: CN 2-12 intact Cardiovascular: RRR Respiratory: CTA Gastrointestinal: S/NT/ND Airway Exam Mallampati Score: Class II MO: full Neck: flexible ROM: full Teeth: intact Dentures: no upper, no lower Anesthesia Pre-op A/P Labs Hematology Test 03/14/19 05:05 White Blood Count 6.1 K/UL (4.8-10.8) Red Blood Count 3.90 M/UL (4.70-6.10) L Hemoglobin 12.6 G/DL (14.2-18.0) L Hematocrit 37.3 % (42.0-52.0) L Mean Corpuscular Volume 96 FL (80-99) Mean Corpuscular Hemoglobin 32.2 PG (27.0-31.0) H Mean Corpuscular Hemoglobin Concent 33.6 G/DL (32.0-36.0) Red Cell Distribution Width 12.2 % (11.6-14.8) Platelet Count 176 K/UL (150-450) Mean Platelet Volume 7.0 FL (6.5-10.1) Neutrophils (%) (Auto) 73.0 % (45.0-75.0) Lymphocytes (%) (Auto) 15.6 % (20.0-45.0) L Monocytes (%) (Auto) 6.9 % (1.0-10.0) Eosinophils (%) (Auto) 3.6 % (0.0-3.0) H Basophils (%) (Auto) 0.9 % (0.0-2.0) Coagulation Test 03/14/19 05:05 Prothrombin Time 10.4 SEC (9.30-11.50) Prothromb Time International Ratio 1.0 (0.9-1.1) Activated Partial Thromboplast Time 31 SEC (23-33) Chemistry Test 03/14/19 05:05 Sodium Level 139 MMOL/L (136-145) Potassium Level 3.6 MMOL/L (3.5-5.1) Chloride Level 104 MMOL/L (98-107) Carbon Dioxide Level 25 MMOL/L (21-32) Anion Gap 10 mmol/L (5-15) Blood Urea Nitrogen 12 mg/dL (7-18) Creatinine 1.6 MG/DL (0.55-1.30) H Estimat Glomerular Filtration Rate 47.2 mL/min (>60) Glucose Level 107 MG/DL (74-106) H Calcium Level 8.8 MG/DL (8.5-10.1) Risk Assessment & Plan Assessment: ASA 3 Plan: GA with LMA Status Change Before Surgery: No Pre-Antibiotics Drug: Ancef 1gr. Given Within 1 Hr of Incision: Yes Time Given: 11:50 Ramiro Stevens MD Mar 14, 2019 12:18
[2019-03-14] MEDS ORDERED: DiphenhydrAMINE 50mg/ml Inj IVP PRN (12:30)
[2019-03-14] MEDS ORDERED: Hydromorphone 0.5mg/0.5ml inj IVP PRN (12:30)
[2019-03-14] MEDS ORDERED: Meperidine 50mg/ml Inj(FOR RIGORS ONLY) IV PRN (12:30)
--- NOTE | 2019-03-14 12:59 | Brief Operative Note ---
Immediate Post Operative Note Operative Note Pre-op Diagnosis: 1) Osteomyelitis left foot 2) Chronic complex wound left foot 3) Peripheral Neuropathy Procedure: 1) Partial 5th ray amputation left foot 2) Bone biopsy margin 5th metatarsal 3) Complex wound closure left foot Post-op Diagnosis: same as pre-op Surgeon: Enmanuel Kim DPM Leather Cartridge Belt Maker: none Additional Surgeons: none Anesthesiologist: Dr Ruiz Anesthesia: general Specimen: yes - partial 5th ray, bone cultures Complications: none Condition: stable Fluids: minimal Estimated Blood Loss: volume - 10cc Drains: none Tourniquet time: 38 - min Implant(s) used?: No Enmanuel Kim DPM Mar 14, 2019 12:59
--- NOTE | 2019-03-14 13:03 | Immediate Post-Op Evaluation ---
Immediate Post-Op Evalulation Immediate Post-Op Evalulation Procedure: L 5-th transmetatarsal amputation Date of Evaluation: Mar 14, 2019 Time of Evaluation: 13:02 IV Fluids: 600 Blood Products: none Estimated Blood Loss: min Urinary Output: none Blood Pressure Systolic: 124 Blood Pressure Diastolic: 72 Pulse Rate: 76 Respiratory Rate: 20 O2 Sat by Pulse Oximetry: 99 Temperature (Fahrenheit): 97.4 Pain Score (1-10): 1 Nausea: No Vomiting: No Complications none Patient Status: reacts, patent, none Hydration Status: adequate Ramiro Stevens MD Mar 14, 2019 13:03
--- NOTE | 2019-03-14 13:18 | NUR ---
RD ASSESSMENT & RECOMMENDATIONS SEE CARE ACTIVITY FOR COMPLETE ASSESSMENT DAILY ESTIMATED NEEDS: Needs based on Wound/ 97.6kg 25-30 kcals/kg 5103-9031 total kcals 1.2-1.5 g protein/kg 117-146 g total protein 25-30 mL/kg 9154-0119 total fluid mLs NUTRITION DIAGNOSIS: Increased protein and micronutrients need R/T wound healing as evidenced by ax of OM of left foot, s/p partial 5th ray amputation left foot. CURRENT DIET:REGULAR PO DIET RECOMMENDATIONS: Maintain regular diet ADDITIONAL RECOMMENDATIONS: * Wound healing: MVI x 1, Vit C 500mg QD : Topher 1pkt BID added to tray * Snacks BID in b/w meals * Calibrated bedscale wt for accurate CBW
--- NOTE | 2019-03-14 13:38 | Surgery Progress Note ---
Surgery Progress Note Subjective Additional Comments OR today with podiatry Objective Last 24 Hour Vital Signs Date Time Temp Pulse Resp B/P (MAP) Pulse Ox O2 Delivery O2 Flow Rate FiO2 03/14/19 13:25 76 13 115/76 97 Nasal Cannula 3 03/14/19 13:15 72 15 116/78 97 Simple Mask 6 03/14/19 13:05 74 15 113/78 97 Simple Mask 6 03/14/19 13:03 76 20 99 03/14/19 13:00 72 11 117/76 99 Simple Mask 6 03/14/19 12:55 97.8 76 20 128/79 99 Simple Mask 6 03/14/19 09:00 Room Air 03/14/19 08:00 98.1 82 18 137/88 (104) 96 03/14/19 04:00 98.0 67 18 136/70 (92) 95 03/14/19 00:00 98.1 73 18 122/71 (88) 95 03/13/19 21:00 Room Air 03/13/19 20:00 98.0 79 18 128/74 (92) 96 03/13/19 17:50 97.0 03/13/19 15:57 97.0 76 18 120/84 (96) 94 I&O Intake and Output 03/13/19 03/14/19 19:00 07:00 Intake Total 1637.416 ml 492.416 ml Output Total 600 ml Balance 1037.416 ml 492.416 ml Intake Oral 800 ml IV Total 837.416 ml 492.416 ml Output Urine Total 600 ml # Voids 5 3 Dressing: dry Wound: clean Cardiovascular: RSR Respiratory: clear Abdomen: soft, flat Extremities: no edema, no tenderness, no cyanosis Laboratory Tests Test 03/13/19 13:45 03/14/19 05:05 Urine Color Pale yellow Urine Appearance Clear Urine pH 5 (4.5-8.0) Urine Specific [place] 1.015 (1.005-1.035) Urine Protein Negative (NEGATIVE) Urine Glucose (UA) Negative (NEGATIVE) Urine Ketones Negative (NEGATIVE) Urine Blood 1+ (NEGATIVE) H Urine Nitrite Negative (NEGATIVE) Urine Bilirubin Negative (NEGATIVE) Urine Urobilinogen Normal MG/DL (0.0-1.0) Urine Leukocyte Esterase 1+ (NEGATIVE) H Urine RBC 0-2 /HPF (0 - 0) H Urine WBC 0-2 /HPF (0 - 0) Urine Squamous Epithelial Cells Occasional /LPF Urine Bacteria Occasional /HPF (NONE) Urine Eosinophils None seen (NONE SEEN) Urine Random Sodium 61 mmol/L (20-110) Urine Creatinine 101.6 MG/DL (30.0-125.0) White Blood Count 6.1 K/UL (4.8-10.8) Red Blood Count 3.90 M/UL (4.70-6.10) L Hemoglobin 12.6 G/DL (14.2-18.0) L Hematocrit 37.3 % (42.0-52.0) L Mean Corpuscular Volume 96 FL (80-99) Mean Corpuscular Hemoglobin 32.2 PG (27.0-31.0) H Mean Corpuscular Hemoglobin Concent 33.6 G/DL (32.0-36.0) Red Cell Distribution Width 12.2 % (11.6-14.8) Platelet Count 176 K/UL (150-450) Mean Platelet Volume 7.0 FL (6.5-10.1) Neutrophils (%) (Auto) 73.0 % (45.0-75.0) Lymphocytes (%) (Auto) 15.6 % (20.0-45.0) L Monocytes (%) (Auto) 6.9 % (1.0-10.0) Eosinophils (%) (Auto) 3.6 % (0.0-3.0) H Basophils (%) (Auto) 0.9 % (0.0-2.0) Prothrombin Time 10.4 SEC (9.30-11.50) Prothromb Time International Ratio 1.0 (0.9-1.1) Activated Partial Thromboplast Time 31 SEC (23-33) Sodium Level 139 MMOL/L (136-145) Potassium Level 3.6 MMOL/L (3.5-5.1) Chloride Level 104 MMOL/L (98-107) Carbon Dioxide Level 25 MMOL/L (21-32) Anion Gap 10 mmol/L (5-15) Blood Urea Nitrogen 12 mg/dL (7-18) Creatinine 1.6 MG/DL (0.55-1.30) H Estimat Glomerular Filtration Rate 47.2 mL/min (>60) Glucose Level 107 MG/DL (74-106) H Calcium Level 8.8 MG/DL (8.5-10.1) Plan Problems: (1) Cellulitis Assessment & Plan: 43-year-old male with medical comorbidities as above who is potentially a poor historian presented with worsening ulcer cellulitis and wound of his left leg/foot. Afebrile here and having stable labs noted. Plain films as below. There is a prominent ulcer along the lateral aspect of the foot near the head of the fifth metatarsal, which should be confirmed clinically. There is a dislocation of the fifth MTP joint as well as a fracture of the head of the fifth metatarsal, which appears abnormally lucent suggesting this may be a pathologic or insufficiency type fracture. Clinical correlation is needed. IMPRESSION: Acute fracture dislocation of the fifth MTP joint as described above. Adjacent ulceration with lucency of the head of the fifth metatarsal is suspicious for acute osteomyelitis which may be superimposed. Please correlate clinically. Strong suspicion that there is osteomyelitis at the fifth metatarsal head based on examination where the wound is open and the bone is palpable. Etiology of the wound is still unknown and patient story is somewhat hard to believe Recommend admission for IV antibiotics and further work-up. MRI of the left foot ordered --> indings: There is area of ulceration along the lateral aspect of the foot near the head of the fifth metatarsal. There is destruction of the head of the metatarsal likely on the basis of acute osteomyelitis. Abnormal low T1/high T2 signal and abnormal enhancement associated with this demonstrated within the shaft of the fifth metatarsal. There is no abscess identified. There is intense enhancement of the soft tissues in this region consistent with cellulitis. There is relative sparing of the base of the fifth metatarsal but the majority of the fifth metatarsal distal to the base appears involved. There is relative sparing of the fifth proximal middle and distal phalange which exhibit relatively normal signal. There is a dislocation of the fifth MTP joint. While the abnormal bone marrow edema signal may be due to acute fracture alone, the destructive appearance of the fifth metatarsal head and the presence of adjacent ulceration is by imaging criteria highly suspicious for acute osteomyelitis and infection. Clinical signs and symptoms of infection should be confirmed but the findings overall highly suspicious for acute osteomyelitis with pathologic fracture or destruction of the fifth metatarsal head. IMPRESSION: Findings highly suspicious for acute osteomyelitis of the fifth metatarsal head and shaft with destruction of the head of the fifth metatarsal, pathologic fracture and dislocation of the fifth MTP joint. appreciate podiatry input amputation today Thank you for allowing me to participate in patient's care will follow with recommendations Jeffery Rogers Mar 14, 2019 13:38
--- NOTE | 2019-03-14 13:41 | General Progress Note ---
Assessment/Plan Status: stable Assessment/Plan: 43 y/o M admitted due to foot ulcer and pain # L foot V metatarsal fracture with dislocation and open wound, most likely osteomyelitis. - patient to OR for amputation today - Surgery and podiatry consult appreciated. - MRI L foot Findings highly suspicious for acute osteomyelitis of the fifth metatarsal head and shaft with destruction of the head of the fifth metatarsal, pathologic fracture and dislocation of the fifth MTP joint. - Podiatry consult for intervention Ray amputation vs salvage intervention and antibiotics. Podiatry intervention this Thursday 11: [address] Kim - Vancomycin and Zosyn antibiotics started and ID consulted. PENDING FINAL therapy. Today, Zosyn dose adjusted to 2.25 g IV q 6 hr due to GFR decreased to almost 40 ( acute) - CRP and ESR elevated - Wound cx pending - Pain control. NORCO PRN # ANTHONY Etiology prerenal vs AIN due to antibiotics vs other IVF NS 125 cc hr Urine studies Monitor response in the renal function Nephrology consultation # History of recreational substance use ( MJ) - Counselling. - DVT ppx - FULL CODE Subjective Date patient seen: Mar 14, 2019 Time patient seen: 11:10 ROS Limited/Unobtainable: No Allergies: Coded Allergies: Cat Dander (Unverified Allergy, Unknown, Itching, 03/09/19) Uncoded Allergies: LACTOSE INTOLERANCE (Adverse Reaction, Severe, 06/05/14) FORMATION OF GAS All Systems: reviewed and negative except above Subjective denies fevers, chills. admits to left foot pain, awaiting surgery Objective Last 24 Hour Vital Signs Date Time Temp Pulse Resp B/P (MAP) Pulse Ox O2 Delivery O2 Flow Rate FiO2 03/14/19 13:25 76 13 115/76 97 Nasal Cannula 3 03/14/19 13:15 72 15 116/78 97 Simple Mask 6 03/14/19 13:05 74 15 113/78 97 Simple Mask 6 03/14/19 13:03 76 20 99 03/14/19 13:00 72 11 117/76 99 Simple Mask 6 03/14/19 12:55 97.8 76 20 128/79 99 Simple Mask 6 03/14/19 09:00 Room Air 03/14/19 08:00 98.1 82 18 137/88 (104) 96 03/14/19 04:00 98.0 67 18 136/70 (92) 95 7/22/19 00:00 98.1 73 18 122/71 (88) 95 03/13/19 21:00 Room Air 03/13/19 20:00 98.0 79 18 128/74 (92) 96 03/13/19 17:50 97.0 03/13/19 15:57 97.0 76 18 120/84 (96) 94 Intake and Output 03/13/19 03/14/19 19:00 07:00 Intake Total 1637.416 ml 492.416 ml Output Total 600 ml Balance 1037.416 ml 492.416 ml Intake Oral 800 ml IV Total 837.416 ml 492.416 ml Output Urine Total 600 ml # Voids 5 3 Laboratory Tests 03/13/19 13:45: Urine Color Pale yellow, Urine Appearance Clear, Urine pH 5, Urine Specific [place] 1.015, Urine Protein Negative, Urine Glucose (UA) Negative, Urine Ketones Negative, Urine Blood 1+H, Urine Nitrite Negative, Urine Bilirubin Negative, Urine Urobilinogen Normal, Urine Leukocyte Esterase 1+H, Urine RBC 0- 2H, Urine WBC 0-2, Urine Squamous Epithelial Cells Occasional, Urine Bacteria Occasional, Urine Eosinophils None seen, Urine Random Sodium 61, Urine Creatinine 101.6 03/14/19 05:05: White Blood Count 6.1, Red Blood Count 3.90L, Hemoglobin 12.6L, Hematocrit 37.3L , Mean Corpuscular Volume 96, Mean Corpuscular Hemoglobin 32.2H, Mean Corpuscular Hemoglobin Concent 33.6, Red Cell Distribution Width 12.2, Platelet Count 176, Mean Platelet Volume 7.0, Neutrophils (%) (Auto) 73.0, Lymphocytes (% ) (Auto) 15.6L, Monocytes (%) (Auto) 6.9, Eosinophils (%) (Auto) 3.6H, Basophils (%) (Auto) 0.9, Prothrombin Time 10.4, Prothromb Time International Ratio 1.0, Activated Partial Thromboplast Time 31, Sodium Level 139, Potassium Level 3.6, Chloride Level 104, Carbon Dioxide Level 25, Anion Gap 10, Blood Urea Nitrogen 12, Creatinine 1.6H, Estimat Glomerular Filtration Rate 47.2, Glucose Level 107H, Calcium Level 8.8 Height (Feet): 6 Height (Inches): 5.00 Weight (Pounds): 236 General Appearance: no apparent distress, alert EENT: PERRL/EOMI Neck: non-tender, normal alignment, supple Cardiovascular: normal rate, regular rhythm, no JVD Respiratory/Chest: lungs clear, normal breath sounds, no respiratory distress Abdomen: non tender, soft, no organomegaly Extremities: other - left foot wound dressed, c/d/i, cap refill < 3 Edema: no edema noted Arm (L), no edema noted Arm (R), no edema noted Leg (L), no edema noted Leg (R), no edema noted Pedal (L), no edema noted Pedal (R), no edema noted Generalized Neurologic: associate agent insurance sales II-XII grossly normal Marychuy Rubio DO Mar 14, 2019 13:41
--- NOTE | 2019-03-14 14:11 | Infectious Diseases Prog Note ---
Assessment/Plan Assessment/Plan ASSESSMENT AND PLAN: 1. left foot wound infection/ulcer with osteomyelitis and cellulitis, tinea pedis - zosyn and vancomycin - wound culture with streptococcus pyogenes and staph species - s/p amputation left foot 5th ray, f/u on margin pathology and culture - on econazole cream per podiatry - monitor labs 2. Neuropathy. 3. No history of diabetes. 4. Hypertension. 5. Blood pressure treatment per primary. 6. History of wound infection and treatment in the past. 7. History of peripheral neuropathy. 8. History of spinal cord injury. 9. Allergies to cat dander and lactose. 10. Family history is noncontributory. 11. MAR was noted. 12. Case was discussed with RN. 13. Social history is negative. 14. Continue treatment per primary consultants. 15. Case was discussed with Dr. Hoyt. Subjective Constitutional: Reports: fatigue; Denies: fever HEENT: Denies: congestion Respiratory: Denies: shortness of breath Breasts: Denies: discharge Cardiovascular: Denies: chest pain Gastrointestinal/Abdominal: Denies: nausea, vomiting, diarrhea Genitourinary: Denies: dysuria, hematuria Neurologic: Denies: headache Psychiatric: Denies: depression Skin: Denies: rash Hematologic: Denies: bleeding Musculoskeletal: Denies: pain Allergies: Coded Allergies: Cat Dander (Unverified Allergy, Unknown, Itching, 03/09/19) Uncoded Allergies: LACTOSE INTOLERANCE (Adverse Reaction, Severe, 06/05/14) FORMATION OF GAS Objective Vital Signs Last 24 Hour Vital Signs Date Time Temp Pulse Resp B/P (MAP) Pulse Ox O2 Delivery O2 Flow Rate FiO2 03/14/19 13:50 97.9 80 16 113/77 96 Nasal Cannula 3 03/14/19 13:47 73 15 113/78 96 Nasal Cannula 3 03/14/19 13:35 73 15 113/78 96 Nasal Cannula 3 03/14/19 13:25 76 13 115/76 97 Nasal Cannula 3 03/14/19 13:15 72 15 116/78 97 Simple Mask 6 03/14/19 13:05 74 15 113/78 97 Simple Mask 6 03/14/19 13:03 76 20 99 03/14/19 13:00 72 11 117/76 99 Simple Mask 6 03/14/19 12:55 97.8 76 20 128/79 99 Simple Mask 6 03/14/19 09:00 Room Air 03/14/19 08:00 98.1 82 18 137/88 (104) 96 03/14/19 04:00 98.0 67 18 136/70 (92) 95 03/14/19 00:00 98.1 73 18 122/71 (88) 95 03/13/19 21:00 Room Air 03/13/19 20:00 98.0 79 18 128/74 (92) 96 03/13/19 17:50 97.0 03/13/19 15:57 97.0 76 18 120/84 (96) 94 Height (Feet): 6 Height (Inches): 5.00 Weight (Pounds): 236 General Appearance: no acute distress HEENT: normocephalic, atraumatic, anicteric Respiratory/Chest: lungs clear, normal breath sounds, no respiratory distress Cardiovascular: normal rate, regular rhythm, no gallop/murmur, no JVD Abdomen: normal bowel sounds, soft, non tender, no organomegaly, non distended Genitourinary: other - no cva pain Extremities: other - left foot covered Skin: no rash Neurologic/Psychiatric: accounting technician II-XII grossly normal, alert, oriented x 3, responsive Lymphatic: no neck adenopathy Musculoskeletal: no effusion Objective MRI left foot: IMPRESSION: Findings highly suspicious for acute osteomyelitis of the fifth metatarsal head and shaft with destruction of the head of the fifth metatarsal, pathologic fracture and dislocation of the fifth MTP joint. Microbiology Date/Time Source Procedure Growth Status 03/10/19 20:50 Wound Gram Stain - Final Complete 03/10/19 20:50 Wound Culture - Final Streptococcus Pyogenes Grp A Staphylococcus Chromogenes Complete 03/09/19 22:40 Nasal Nares MRSA Culture - Final NO METHICILLIN RESISTANT STAPH AUREUS... Complete Laboratory Tests Test 03/14/19 05:05 White Blood Count 6.1 K/UL (4.8-10.8) Red Blood Count 3.90 M/UL (4.70-6.10) L Hemoglobin 12.6 G/DL (14.2-18.0) L Hematocrit 37.3 % (42.0-52.0) L Mean Corpuscular Volume 96 FL (80-99) Mean Corpuscular Hemoglobin 32.2 PG (27.0-31.0) H Mean Corpuscular Hemoglobin Concent 33.6 G/DL (32.0-36.0) Red Cell Distribution Width 12.2 % (11.6-14.8) Platelet Count 176 K/UL (150-450) Mean Platelet Volume 7.0 FL (6.5-10.1) Neutrophils (%) (Auto) 73.0 % (45.0-75.0) Lymphocytes (%) (Auto) 15.6 % (20.0-45.0) L Monocytes (%) (Auto) 6.9 % (1.0-10.0) Eosinophils (%) (Auto) 3.6 % (0.0-3.0) H Basophils (%) (Auto) 0.9 % (0.0-2.0) Prothrombin Time 10.4 SEC (9.30-11.50) Prothromb Time International Ratio 1.0 (0.9-1.1) Activated Partial Thromboplast Time 31 SEC (23-33) Sodium Level 139 MMOL/L (136-145) Potassium Level 3.6 MMOL/L (3.5-5.1) Chloride Level 104 MMOL/L (98-107) Carbon Dioxide Level 25 MMOL/L (21-32) Anion Gap 10 mmol/L (5-15) Blood Urea Nitrogen 12 mg/dL (7-18) Creatinine 1.6 MG/DL (0.55-1.30) H Estimat Glomerular Filtration Rate 47.2 mL/min (>60) Glucose Level 107 MG/DL (74-106) H Calcium Level 8.8 MG/DL (8.5-10.1) Current Medications Medications (Trade) Dose Ordered Sig/Fiona Route PRN Reason Start Time Stop Time Status Last Admin Dose Admin Acetaminophen (Tylenol) 650 mg Q4H PRN ORAL Mild Pain (Pain Scale 1-3) 03/09/19 18:30 04/08/19 18:29 Acetaminophen (Tylenol) 650 mg Q4H PRN ORAL fever 03/09/19 18:30 04/08/19 18:29 Acetaminophen/ Hydrocodone Bitart ([place] 5/325) 1 tab Q4H PRN ORAL Moderate Pain (Pain Scale 4-6) 03/10/19 16:00 03/17/19 15:59 Dextrose (Dextrose 50%) 25 ml Q30M PRN IV Hypoglycemia 03/09/19 18:30 04/08/19 18:29 Dextrose (Dextrose 50%) 50 ml Q30M PRN IV Hypoglycemia 03/09/19 18:30 04/08/19 18:29 Diphenhydramine HCl (Benadryl) 25 mg Q15M PRN IVP Itching 03/14/19 12:30 03/14/19 21:00 Diphenhydramine HCl (Benadryl) 25 mg Q6H PRN ORAL Itching/Pruritis 03/09/19 18:30 04/08/19 18:29 Econazole Nitrate (Spectazole) 1 applic DAILY TOPIC 03/11/19 17:00 04/10/19 16:59 03/13/19 08:33 Famotidine (Pepcid) 40 mg DAILY ORAL 03/10/19 09:00 04/09/19 08:59 03/13/19 08:33 Hydromorphone HCl (Dilaudid) 0.5 mg Q5M PRN IVP Severe Pain (Pain Scale 7-10) 03/14/19 12:30 03/14/19 21:00 Lactated Ringer's 1,000 ml @ 10 mls/hr Q24H IVLG 03/14/19 12:18 03/14/19 14:17 Lorazepam (Ativan) 1 mg EVERY 4 HOURS PRN ORAL For Anxiety 03/09/19 22:30 03/16/19 20:59 Meperidine HCl (Demerol) 25 mg Q15M PRN IV chills 03/14/19 12:30 03/14/19 21:00 Morphine Sulfate (Morphine Sulfate) 2 mg Q4H PRN IVP Moderate Pain (Pain Scale 4-6) 03/09/19 18:30 03/16/19 18:29 03/12/19 09:35 Morphine Sulfate (Morphine Sulfate) 4 mg Q4H PRN IVP Severe Pain (Pain Scale 7-10) 03/09/19 18:30 03/16/19 18:29 03/14/19 10:27 Nicotine (Nicoderm) 1 patch Q24H TDERMAL 03/09/19 22:30 04/08/19 22:29 03/13/19 22:59 Ondansetron HCl (Zofran) 4 mg Q1H PRN IVP Nausea & Vomiting 03/14/19 12:30 03/14/19 21:00 Ondansetron HCl (Zofran) 4 mg Q6H PRN IVP Nausea & Vomiting 03/09/19 18:30 04/08/19 18:29 Piperacillin Sod/ Tazobactam Sod 2.25 gm/Dextrose 55 ml @ 110 mls/hr EVERY 6 HOURS IVPB 03/13/19 18:00 03/18/19 17:59 03/14/19 06:21 Polyethylene Glycol (Miralax) 17 gm HSPRN PRN ORAL Constipation 03/09/19 18:30 04/08/19 18:29 Potassium Chloride 10 meq/ Dextrose/Sodium Chloride 1,005 ml @ 75 mls/hr [id number] IV 03/14/19 00:00 04/13/19 00:00 03/14/19 00:55 Temazepam (Restoril) 15 mg HSPRN PRN ORAL Insomnia 03/09/19 18:30 03/16/19 18:29 Vancomycin HCl (Vanco rx to dose) 1 ea DAILY PRN MISC Per rx protocol 03/09/19 18:30 04/08/19 18:29 Vancomycin HCl 1 gm/Dextrose 275 ml @ 183.708 mls/hr Q8H IVPB 03/10/19 04:00 03/15/19 03:59 03/14/19 04:29 Darren Patel MD Mar 14, 2019 14:11
--- NOTE | 2019-03-14 14:42 | NUR ---
HAND-OFF: Report given to ТАТЬЯНА Wheatley.
[2019-03-14] MEDS: Zosyn 3.375gm q8h **Extended infusion IVPB SCH ×4 (14:48→22:14)
--- NOTE | 2019-03-14 16:14 | NUR ---
PATIENT'S LIBRARIANINDUSTRIAL ENGINEERING TECHNOLOGIST SI:OSTEOMYELITIS . S/P AMPUTATION OF L5TH TRANSMETATARSAL VS: BP 128/71, P 73, T 99.0, RR 20, SpO2 96 CR 1.6, GLUCOSE 107, RBC 3.90, H&H 12.6/37.3 IS:ZOSYN 110ml IVPB VANCOMYCIN 275ml IVPB POTASSIUM CHLORIDE 1005ml IV MORPHINE SULFATE 4mg IVP PLAN: DVT ppx 3E MED/SURG STATUS
--- NOTE | 2019-03-14 16:30 | Operative Note - Dictated ---
DATE OF OPERATION: 03/14/2019 SURGEON: Enmanuel Kim D.P.M. SOLUTIONS ANALYST SURGEON: None. ANESTHESIOLOGIST: Ramiro Stevens M.D. TYPE OF ANESTHESIA: General with 7 mL of local anesthetic and 0.25% plain Marcaine. PREOPERATIVE DIAGNOSES: 1. Osteomyelitis, left fifth metatarsal. 2. Complex wound. 3. Peripheral neuropathy. POSTOPERATIVE DIAGNOSES: 1. Osteomyelitis, left fifth metatarsal. 2. Complex wound. 3. Peripheral neuropathy. PROCEDURE PERFORMED: 1. Left fifth partial ray amputation. 2. Bone biopsy, left fifth metatarsal. 3. Complex wound closure, advancement flap. OPERATIVE PROCEDURE: The patient was transferred to the operating and, placed on the operating table in supine position. Anesthesiologist then began anesthesia. Left lower extremity was scrubbed, prepped, and draped in usual aseptic manner. Time-out was taken. After anesthesia check, a linear incision was made dorsal to the fifth metatarsal encompassing the fifth toe. Fifth toe was disarticulated and submitted as a specimen. Soft tissues of the distal half of the fifth metatarsal were freed and a sagittal saw was utilized to resect the distal half of the fifth metatarsal. The margins of the fifth metatarsal at the resection site were taken and passed for culture, aerobic and anaerobic fungal and AFB. The wound was copiously flushed. Plantar left foot wound was debrided of all nonviable tissue. Wound was copiously flushed. Gloves were changed. Deep structures were coapted utilizing 3-0 Vicryl both at the complex wound as well as the incision site. Skin was coapted utilizing 2-0 and 3-0 nylon. Dressings were applied. Tourniquet was released at 38 minutes. The patient tolerated the procedure and anesthesia well and was transferred to recovery room in stable condition. No complications. We will continue antibiotics. Nonweightbearing status ordered. Resume previous medications as well as previous diet. We will follow. Enmanuel Kim D.P.M. DR: JUAN J JOB#: [id number] CC:
--- NOTE | 2019-03-14 17:07 | NUR ---
*-* INSURANCE *-* UPDATED CLINICALS AND REVIEWS HAVE BEEN FAXED TO: CYNTHIA COSBY: ALICJA REF# [id number] P:[phone] F:[phone]
[2019-03-14] MEDS: Morphine Sulfate 2mg/ml Inj(IV/IM USE ONLY) IVP PRN (18:42)
--- NOTE | 2019-03-14 19:15 | NUR ---
HAND-OFF: Report given to Oh RN, pt in stable condition.
--- NOTE | 2019-03-14 19:30 | NUR ---
NURSE NOTES: Receive a report from ТАТЬЯНА Wheatley. Done rounds. Pt is awake alert. Left foot op site dressing keep clean and dry. No bleeding or oozing noted. Pain is tolerable state after pain medication. Will continue to monitor.
[2019-03-14] MEDS ORDERED: Vancomycin 1 GM in D5W 275 ML IVPB SCH (20:00)
--- NOTE | 2019-03-14 20:49 | Cardiology Report ---
APPROVED REPORT EKG Measurement Heart [id number] Normal sinus rhythm Possible Left atrial enlargement Borderline ECG
--- NOTE | 2019-03-14 22:15 | NUR ---
NURSE NOTES: Pt is awake and alert. Reinforce not to weight bearing on left foot. HAYLEE wrap is clear without bleeding signs. Elevated with pillow on left foot. Sensory and motor intact. Aggravated pain 7/10 above ankle on left foot with warmth. Administer prn pain medication and apply ice pack. IV antibiotics as scheduled including new dose of Vancomycin after Trough result. Will continue to monitor.
[2019-03-15] VITALS: BP 134/78
[2019-03-15] MEDS: Potassium Chloride 10 MEQ in D5 1/2NS 1,000 ML IV SCH ×2 (02:28→16:12)
[2019-03-15] MEDS: Vancomycin 750mg/NS 275ml IVPB SCH ×6 (03:54→20:14)
[2019-03-15 04:00] VITALS: BP 135/76
[2019-03-15] MEDS: Morphine Sulfate 4mg/ml Inj (IV USE ONLY) IVP PRN ×4 (04:01→21:26)
[2019-03-15] MEDS: Zosyn 3.375gm q8h **Extended infusion IVPB SCH ×6 (05:50→22:42)
--- NOTE | 2019-03-15 07:15 | NUR ---
HAND-OFF: Report given to ТАТЬЯНА Wheatley. Done rounds and pt is asleep.
--- NOTE | 2019-03-15 07:25 | NUR ---
NURSE NOTES: Received report from o RN, pt is sleeping in bed with no signs of distress or other issues at this time. dressing dry and intact. IV on the left FA gauge#20 running IV abx (Zosyn). pt continues on NWB on the left foot and with a pillow to elevate leg. call light within reach, bed in lowest position. side rales up x2. I will f/u as needed.
[2019-03-15 08:00] VITALS: BP 116/92
[2019-03-15] MEDS: Econazole 1% Cream 15gm TOPIC SCH (09:00)
--- NOTE | 2019-03-15 09:10 | General Progress Note ---
Assessment/Plan Status: stable Assessment/Plan: 43 y/o M admitted due to foot ulcer and pain # osteomyelitis of the fifth metatarsal head s/p the following on 03/14: 1. Left fifth partial ray amputation. 2. Bone biopsy, left fifth metatarsal. 3. Complex wound closure, advancement flap. - Surgery and podiatry consult appreciated. - MRI L foot: Findings highly suspicious for acute osteomyelitis of the fifth metatarsal head and shaft with destruction of the head of the fifth metatarsal, pathologic fracture and dislocation of the fifth MTP joint. - Podiatry consult for intervention Ray amputation vs salvage intervention and antibiotics. - Vancomycin and Zosyn antibiotics started and ID consulted - CRP and ESR elevated - Pain control. NORCO PRN - dw ID, plan regarding abx is pending intra-op culture and path # ANTHONY Etiology prerenal vs AIN due to antibiotics vs other IVF NS 125 cc hr Urine studies Monitor response in the renal function Nephrology consultation # History of recreational substance use ( MJ) - Counselling. - DVT ppx - FULL CODE Subjective Date patient seen: Mar 15, 2019 Time patient seen: 08:00 ROS Limited/Unobtainable: No Allergies: Coded Allergies: Cat Dander (Unverified Allergy, Unknown, Itching, 03/09/19) Uncoded Allergies: LACTOSE INTOLERANCE (Adverse Reaction, Severe, 06/05/14) FORMATION OF GAS All Systems: reviewed and negative except above Subjective surgery yesterday without complications patient had pain overnight that improved with icing and pain medicines denies fevers and chills admits to small bm discussed w id plan pending results of intra-op culture and pathology Objective Last 24 Hour Vital Signs Date Time Temp Pulse Resp B/P (MAP) Pulse Ox O2 Delivery O2 Flow Rate FiO2 03/15/19 08:00 98.5 81 18 116/92 (100) 96 03/15/19 04:00 98.2 80 17 135/76 (95) 94 03/15/19 00:00 98.4 81 16 134/78 (96) 94 03/14/19 21:00 Room Air 03/14/19 20:00 98.2 84 16 137/80 (99) 94 03/14/19 19:12 97.9 03/14/19 16:36 97.9 03/14/19 16:00 98.3 71 20 133/84 (100) 96 03/14/19 14:09 97.9 03/14/19 13:50 97.9 80 16 113/77 96 Nasal Cannula 3 03/14/19 13:47 73 15 113/78 96 Nasal Cannula 3 03/14/19 13:35 73 15 113/78 96 Nasal Cannula 3 03/14/19 13:25 76 13 115/76 97 Nasal Cannula 3 03/14/19 13:15 72 15 116/78 97 Simple Mask 6 03/14/19 13:05 74 15 113/78 97 Simple Mask 6 03/14/19 13:03 76 20 99 03/14/19 13:00 72 11 117/76 99 Simple Mask 6 03/14/19 12:55 97.8 76 20 128/79 99 Simple Mask 6 Intake and Output 03/14/19 03/15/19 19:00 07:00 Intake Total 1775 ml 1198 ml Output Total 1220 ml Balance 555 ml 1198 ml Intake Oral 500 ml 360 ml IV Total 1275 ml 838 ml Output Urine Total 1200 ml Estimated Blood Loss 20 ml # Voids 3 2 # Bowel Movements 1 Laboratory Tests 03/14/19 19:22: Vancomycin Level Trough 29.1H Height (Feet): 6 Height (Inches): 5.00 Weight (Pounds): 236 General Appearance: WD/WN, no apparent distress, alert EENT: normal ENT inspection Neck: non-tender, normal alignment, supple Cardiovascular: normal rate, regular rhythm, no JVD Respiratory/Chest: chest wall non-tender, lungs clear, normal breath sounds, no respiratory distress Abdomen: non tender, soft, no organomegaly, no mass Extremities: other - left foot wrapped c/d/i, toes warm to touch Edema: no edema noted Arm (L), no edema noted Arm (R), no edema noted Leg (L), no edema noted Leg (R), no edema noted Pedal (L), no edema noted Pedal (R), no edema noted 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
--- NOTE | 2019-03-15 10:24 | 48 Hour Post Anesthesia Eval ---
Post Anesthesia Evaluation Procedure: L 5-th transmetatarsal amputation Date of Evaluation: Mar 15, 2019 Time of Evaluation: 08:06 Blood Pressure Systolic: 116 0: 91 Pulse Rate: 81 Respiratory Rate: 18 Temperature (Fahrenheit): 98.5 O2 Sat by Pulse Oximetry: 96 Airway: patent Nausea: No Vomiting: No Pain Intensity: 2 Hydration Status: adequate Cardiopulmonary Status: Stable Mental Status/LOC: patient returned to baseline Follow-up Care/Observations: 0 Post-Anesthesia Complications: 0 Follow-up care needed: N/A Otf Dean MD Mar 15, 2019 10:23
[2019-03-15 12:00] VITALS: BP 130/91
[2019-03-15 12:20] LABS: ANION GAP 9 mmol/L (5-15); BLOOD UREA NITROGEN 17 mg/dL (7-18); CALCIUM 9.7 MG/DL (8.5-10.1); CARBON DIOXIDE 26 MMOL/L (21-32); CHLORIDE 101 MMOL/L (98-107); CREATININE 1.7 MG/DL (0.55-1.30); SODIUM 136 MMOL/L (136-145)
--- NOTE | 2019-03-15 13:26 | Podiatric Progress Note ---
Assessment/Plan Patient Florentin Briggs is a 43 year old male who was admitted on Mar 09, 2019 at 17:15 with Problems: (1) Cellulitis (2) Osteomyelitis of left foot (3) Pancreatitis (4) Cirrhosis of liver Assessment/Plan patients surgical site has been redressed with Betadine and adaptic bone bx pending results. If bone margins positive for osteomyelitis he may need 6-8 weeks of IV abx. Subjective Allergies: Coded Allergies: Cat Dander (Unverified Allergy, Unknown, Itching, 03/09/19) Uncoded Allergies: LACTOSE INTOLERANCE (Adverse Reaction, Severe, 06/05/14) FORMATION OF GAS Subjective Patient s/p 1 day L 5th Ray amputation in NAD Objective Exam Last 24 Hour Vital Signs Date Time Temp Pulse Resp B/P (MAP) Pulse Ox O2 Delivery O2 Flow Rate FiO2 03/15/19 12:44 98.5 03/15/19 12:00 98.7 80 20 130/91 (104) 95 03/15/19 10:23 81 18 96 03/15/19 09:00 Room Air 03/15/19 08:00 98.5 81 18 116/92 (100) 96 03/15/19 04:00 98.2 80 17 135/76 (95) 94 03/15/19 00:00 98.4 81 16 134/78 (96) 94 03/14/19 21:00 Room Air 03/14/19 20:00 98.2 84 16 137/80 (99) 94 03/14/19 19:12 97.9 03/14/19 16:36 97.9 03/14/19 16:00 98.3 71 20 133/84 (100) 96 03/14/19 13:50 97.9 80 16 113/77 96 Nasal Cannula 3 03/14/19 13:47 73 15 113/78 96 Nasal Cannula 3 03/14/19 13:35 73 15 113/78 96 Nasal Cannula 3 03/14/19 13:25 76 13 115/76 97 Nasal Cannula 3 Laboratory Tests Test 03/14/19 19:22 03/15/19 11:35 Vancomycin Level Trough 29.1 ug/mL (5.0-12.0) H Sodium Level 136 MMOL/L (136-145) Potassium Level 4.0 MMOL/L (3.5-5.1) Chloride Level 101 MMOL/L (98-107) Carbon Dioxide Level 26 MMOL/L (21-32) Anion Gap 9 mmol/L (5-15) Blood Urea Nitrogen 17 mg/dL (7-18) Creatinine 1.7 MG/DL (0.55-1.30) H Estimat Glomerular Filtration Rate 44.0 mL/min (>60) Glucose Level 104 MG/DL (74-106) Calcium Level 9.7 MG/DL (8.5-10.1) Microbiology Date/Time Source Procedure Growth Status 03/10/19 20:50 Wound Gram Stain - Final Complete 03/10/19 20:50 Wound Culture - Final Streptococcus Pyogenes Grp A Staphylococcus Chromogenes Complete 03/09/19 22:40 Nasal Nares MRSA Culture - Final NO METHICILLIN RESISTANT STAPH AUREUS... Complete 03/14/19 13:00 Bone Gram Stain - Final Resulted 03/14/19 13:00 Bone Aerobic Culture - Preliminary NO GROWTH Resulted 03/14/19 13:00 Bone Anaerobic Culture Pending Resulted Dermatological Wound Assessment : Exudate Amount: Scant Dermatological Narrative after removal of the dressing, surgical site looked clear from cellulitis, drainage discharge. no pus. surgical incision looks clear and well coapted no dehiscence noted. Eduin Liu DPM Mar 15, 2019 13:26
--- NOTE | 2019-03-15 13:30 | NUR ---
*-* INSURANCE *-* UPDATED CLINICALS HAVE BEEN FAXED TO: CYNTHIA COSBY: ALICJA REF# [id number] P:[phone] F:[phone]
--- NOTE | 2019-03-15 13:42 | Surgery Progress Note ---
Surgery Progress Note Subjective Additional Comments doing well after surgery no complaints no n/v/f/c pain controlled wound clean Objective Last 24 Hour Vital Signs Date Time Temp Pulse Resp B/P (MAP) Pulse Ox O2 Delivery O2 Flow Rate FiO2 03/15/19 12:44 98.5 03/15/19 12:00 98.7 80 20 130/91 (104) 95 03/15/19 10:23 81 18 96 03/15/19 09:00 Room Air 03/15/19 08:00 98.5 81 18 116/92 (100) 96 03/15/19 04:00 98.2 80 17 135/76 (95) 94 03/15/19 00:00 98.4 81 16 134/78 (96) 94 03/14/19 21:00 Room Air 03/14/19 20:00 98.2 84 16 137/80 (99) 94 03/14/19 19:12 97.9 03/14/19 16:36 97.9 03/14/19 16:00 98.3 71 20 133/84 (100) 96 03/14/19 13:50 97.9 80 16 113/77 96 Nasal Cannula 3 03/14/19 13:47 73 15 113/78 96 Nasal Cannula 3 I&O Intake and Output 03/14/19 03/15/19 19:00 07:00 Intake Total 1775 ml 1198 ml Output Total 1220 ml Balance 555 ml 1198 ml Intake Oral 500 ml 360 ml IV Total 1275 ml 838 ml Output Urine Total 1200 ml Estimated Blood Loss 20 ml # Voids 3 2 # Bowel Movements 1 Dressing: dry Wound: clean Cardiovascular: RSR Respiratory: clear Abdomen: soft, flat Extremities: no cyanosis, other Laboratory Tests Test 03/14/19 19:22 03/15/19 11:35 Vancomycin Level Trough 29.1 ug/mL (5.0-12.0) H Sodium Level 136 MMOL/L (136-145) Potassium Level 4.0 MMOL/L (3.5-5.1) Chloride Level 101 MMOL/L (98-107) Carbon Dioxide Level 26 MMOL/L (21-32) Anion Gap 9 mmol/L (5-15) Blood Urea Nitrogen 17 mg/dL (7-18) Creatinine 1.7 MG/DL (0.55-1.30) H Estimat Glomerular Filtration Rate 44.0 mL/min (>60) Glucose Level 104 MG/DL (74-106) Calcium Level 9.7 MG/DL (8.5-10.1) Plan Problems: (1) Cellulitis Assessment & Plan: 43-year-old male with medical comorbidities as above who is potentially a poor historian presented with worsening ulcer cellulitis and wound of his left leg/foot. Afebrile here and having stable labs noted. Plain films as below. There is a prominent ulcer along the lateral aspect of the foot near the head of the fifth metatarsal, which should be confirmed clinically. There is a dislocation of the fifth MTP joint as well as a fracture of the head of the fifth metatarsal, which appears abnormally lucent suggesting this may be a pathologic or insufficiency type fracture. Clinical correlation is needed. IMPRESSION: Acute fracture dislocation of the fifth MTP joint as described above. Adjacent ulceration with lucency of the head of the fifth metatarsal is suspicious for acute osteomyelitis which may be superimposed. Please correlate clinically. Strong suspicion that there is osteomyelitis at the fifth metatarsal head based on examination where the wound is open and the bone is palpable. Etiology of the wound is still unknown and patient story is somewhat hard to believe Recommend admission for IV antibiotics and further work-up. MRI of the left foot ordered --> indings: There is area of ulceration along the lateral aspect of the foot near the head of the fifth metatarsal. There is destruction of the head of the metatarsal likely on the basis of acute osteomyelitis. Abnormal low T1/high T2 signal and abnormal enhancement associated with this demonstrated within the shaft of the fifth metatarsal. There is no abscess identified. There is intense enhancement of the soft tissues in this region consistent with cellulitis. There is relative sparing of the base of the fifth metatarsal but the majority of the fifth metatarsal distal to the base appears involved. There is relative sparing of the fifth proximal middle and distal phalange which exhibit relatively normal signal. There is a dislocation of the fifth MTP joint. While the abnormal bone marrow edema signal may be due to acute fracture alone, the destructive appearance of the fifth metatarsal head and the presence of adjacent ulceration is by imaging criteria highly suspicious for acute osteomyelitis and infection. Clinical signs and symptoms of infection should be confirmed but the findings overall highly suspicious for acute osteomyelitis with pathologic fracture or destruction of the fifth metatarsal head. IMPRESSION: Findings highly suspicious for acute osteomyelitis of the fifth metatarsal head and shaft with destruction of the head of the fifth metatarsal, pathologic fracture and dislocation of the fifth MTP joint. s/p amputation doing well recovering cont current treatment dressings changed Thank you for allowing me to participate in patient's care will follow with recommendations Jeffery Rogers Mar 15, 2019 13:42
--- NOTE | 2019-03-15 15:23 | NUR ---
CASE MANGER REVIEW SI:S/P DAY 1 L5TH RAY AMPUTATION VS: BP 130/91, P 81, T 98.7, RR 20, SpO2 94 CR 1.7 IS:ZOSYN 110ml IVPB MORPHINE SULFATE 4mg IVP VANCOMYCIN 275ml IVPB PEPCID 40mg PLAN DRESSING CHANGE WITH BETADINE BONE Bx PENDING RESULTS 3E MED/SURG STATUS
[2019-03-15 16:00] VITALS: BP 142/81
--- NOTE | 2019-03-15 17:23 | Nephrology Progress Note ---
Assessment/Plan Problem List: (1) Cellulitis (2) Dehydration (3) Anemia (4) Osteomyelitis of left foot (5) Cirrhosis of liver (6) Jaundice (7) Pancreatitis Plan #ANTHONY - pre-renal vs vanco induced nephrotoxicity vsAIN in the setting of zosyn # osteo of left foot #elevated liver enzymes - continue D51/2NS with 10meq of kcl at 75cc - check urine eos-> negative - avoid supratherapeutic vanco level - zosyn dose adjusted - monitor UOP - monitor Cr and BMP daily - strict I&Os Subjective Interval Events/Complaints s/p s/p the following on 03/14: 1. Left fifth partial ray amputation. 2. Bone biopsy, left fifth metatarsal. 3. Complex wound closure, advancement flap. Cr slightly increased to 1.7 today Subjective post op paain controlled remains on d51/2NS at 75cc Objective Objective Last 24 Hour Vital Signs Date Time Temp Pulse Resp B/P (MAP) Pulse Ox O2 Delivery O2 Flow Rate FiO2 03/15/19 16:00 98.9 78 18 142/81 (101) 95 03/15/19 12:44 98.5 03/15/19 12:00 98.7 80 20 130/91 (104) 95 03/15/19 10:23 81 18 96 03/15/19 09:00 Room Air 03/15/19 08:00 98.5 81 18 116/92 (100) 96 03/15/19 04:00 98.2 80 17 135/76 (95) 94 03/15/19 00:00 98.4 81 16 134/78 (96) 94 03/14/19 21:00 Room Air 03/14/19 20:00 98.2 84 16 137/80 (99) 94 03/14/19 19:12 97.9 Intake and Output 03/14/19 03/15/19 19:00 07:00 Intake Total 1775 ml 1198 ml Output Total 1220 ml Balance 555 ml 1198 ml Intake Oral 500 ml 360 ml IV Total 1275 ml 838 ml Output Urine Total 1200 ml Estimated Blood Loss 20 ml # Voids 3 2 # Bowel Movements 1 Laboratory Tests 03/14/19 19:22: Vancomycin Level Trough 29.1H 03/15/19 11:35: Sodium Level 136, Potassium Level 4.0, Chloride Level 101, Carbon Dioxide Level 26, Anion Gap 9, Blood Urea Nitrogen 17, Creatinine 1.7H, Estimat Glomerular Filtration Rate 44.0, Glucose Level 104, Calcium Level 9.7 Height (Feet): 6 Height (Inches): 5.00 Weight (Pounds): 236 Rosangela Galvez M.D. Mar 15, 2019 17:23
--- NOTE | 2019-03-15 19:30 | NUR ---
HAND-OFF: Report given to Abby VAZ, pt is in stable condition.
--- NOTE | 2019-03-15 19:31 | NUR ---
NURSE NOTES: Received report & pt from ТАТЬЯНА Wheatley. Pt lying in bed, a&ox4, in room air. No s/s of acute distress & c/o 7/10 pain at this time. Will give PRN pain med when due & pt verbalized understanding. Surgical dressing C/D/I. IV site intact with IVF running as ordered. Bed in lowest position, call light within reach. Will continue to monitor.
[2019-03-15 20:00] VITALS: BP 132/84
[2019-03-16] VITALS: BP 138/99
[2019-03-16] MEDS: Potassium Chloride 10 MEQ in D5 1/2NS 1,000 ML IV SCH ×3 (02:56→18:38)
[2019-03-16 03:14] LABS: BASOPHILS % (AUTO) 1.4 % (0.0-2.0); EOSINOPHILS % (AUTO) 3.8 % (0.0-3.0); HEMATOCRIT 36.7 % (42.0-52.0); HEMOGLOBIN 12.6 G/DL (14.2-18.0); LYMPHOCYTES % (AUTO) 21.1 % (20.0-45.0); MEAN CORPUSCULAR VOLUME 94 FL (80-99); MONOCYTES % (AUTO) 9.9 % (1.0-10.0); NEUTROPHILS % (AUTO) 63.8 % (45.0-75.0); PLATELET COUNT 168 K/UL (150-450); RED BLOOD COUNT 3.91 M/UL (4.70-6.10); RED CELL DISTRIBUTION WIDTH 11.9 % (11.6-14.8); WHITE BLOOD COUNT 5.8 K/UL (4.8-10.8)
[2019-03-16 03:22] LABS: ANION GAP 11 mmol/L (5-15); BLOOD UREA NITROGEN 18 mg/dL (7-18); CALCIUM 9.2 MG/DL (8.5-10.1); CARBON DIOXIDE 26 MMOL/L (21-32); CHLORIDE 101 MMOL/L (98-107); CREATININE 1.8 MG/DL (0.55-1.30); PHOSPHORUS 4.6 MG/DL (2.5-4.9); POTASSIUM 3.6 MMOL/L (3.5-5.1); SODIUM 138 MMOL/L (136-145)
[2019-03-16] MEDS: Zosyn 3.375gm q8h **Extended infusion IVPB SCH ×6 (05:48→22:46)
[2019-03-16] MEDS: Morphine Sulfate 2mg/ml Inj(IV/IM USE ONLY) IVP PRN (05:54)
--- NOTE | 2019-03-16 07:18 | NUR ---
HAND-OFF: Report given to ТАТЬЯНА Martínez. Pt in stable condition.
--- NOTE | 2019-03-16 07:52 | NUR ---
NURSE NOTES: Received report from Abby RN. Patient is awake, alert, oriented, no acute distress noted. Reporting pain in left foot that patient reports is tolerable at this time, left foot dressing clean, dry, intact and elevated on pillow. IV intact and running IVF and antibiotic as ordered. Side rails upx2, bed low and locked, call light in reach. Will continue to monitor.
[2019-03-16 08:00] VITALS: BP 122/78
[2019-03-16] MEDS ORDERED: NS 275ml ONE (09:36)
[2019-03-16] MEDS: Econazole 1% Cream 15gm TOPIC SCH (10:21)
[2019-03-16] MEDS: Morphine Sulfate 4mg/ml Inj (IV USE ONLY) IVP PRN ×3 (10:22→20:37)
[2019-03-16] MEDS: Vancomycin 1gm/D5W 275ml IVPB SCH ×4 (10:22→21:09)
--- NOTE | 2019-03-16 10:30 | NUR ---
NURSE NOTES: Patient's IV was due to be changed. Noted some leaking around IV site. IV removed intact and new IV started. No signs of infiltration noted.
--- NOTE | 2019-03-16 11:04 | NUR ---
NURSE NOTES: Received order from Dr. Vasquez to renew morphine, ativan, norco, and restoril orders. Orders entered.
--- NOTE | 2019-03-16 11:08 | NUR ---
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
[2019-03-16] MEDS ORDERED: LORazepam 1mg tab ORAL PRN (11:15)
--- NOTE | 2019-03-16 11:16 | NUR ---
ADVISER SALESSLIP COVER SEWER SI:S/P DAY 2 AMPUTATION OF L5TH RAY AMPUTATION IS:MORPHINE SULFATE 4mg IVP VANCOMYCIN 275ml IVPB SPECTAZOLE TOPICAL POTASSIUM CHLORIDE 1,005ml IV ZOSYN 110ml IVPB PLAN: REMAINS ON D51/2NS at 75cc DRESSING CHANGES 3E MED/SURG STATUS
--- NOTE | 2019-03-16 11:42 | Infectious Diseases Prog Note ---
Assessment/Plan Assessment/Plan ASSESSMENT AND PLAN: 1. left foot wound infection/ulcer with osteomyelitis and cellulitis, tinea pedis - zosyn and vancomycin - wound culture with streptococcus pyogenes and staph species - s/p amputation left foot 5th ray, f/u on margin pathology and culture - culture negative so far - on econazole cream per podiatry - monitor labs 2. Neuropathy. 3. No history of diabetes. 4. Hypertension. 5. Blood pressure treatment per primary. 6. History of wound infection and treatment in the past. 7. History of peripheral neuropathy. 8. History of spinal cord injury. 9. Allergies to cat dander and lactose. 10. Family history is noncontributory. 11. MAR was noted. 12. Case was discussed with RN. 13. Social history is negative. 14. Continue treatment per primary consultants. 15. Case was discussed with Dr. Hoyt. Subjective Constitutional: Denies: fever HEENT: Denies: congestion Respiratory: Denies: shortness of breath Cardiovascular: Denies: chest pain Gastrointestinal/Abdominal: Denies: nausea, vomiting, diarrhea Genitourinary: Denies: dysuria, hematuria Neurologic: Denies: headache Psychiatric: Denies: depression Skin: Denies: rash Musculoskeletal: Reports: pain - controlled Allergies: Coded Allergies: Cat Dander (Unverified Allergy, Unknown, Itching, 03/09/19) Uncoded Allergies: LACTOSE INTOLERANCE (Adverse Reaction, Severe, 06/05/14) FORMATION OF GAS Objective Vital Signs Last 24 Hour Vital Signs Date Time Temp Pulse Resp B/P (MAP) Pulse Ox O2 Delivery O2 Flow Rate FiO2 03/16/19 09:00 Room Air 03/16/19 08:00 98.6 69 18 122/78 (93) 95 03/16/19 00:00 98.3 98 18 138/99 (112) 95 03/15/19 21:00 Room Air 03/15/19 20:00 98.5 87 18 132/84 (100) 95 03/15/19 17:22 98.9 03/15/19 16:00 98.9 78 18 142/81 (101) 95 03/15/19 12:00 98.7 80 20 130/91 (104) 95 Height (Feet): 6 Height (Inches): 5.00 Weight (Pounds): 233 General Appearance: no acute distress HEENT: normocephalic, atraumatic, anicteric, mucous membranes moist Respiratory/Chest: lungs clear, normal breath sounds, no respiratory distress Cardiovascular: normal rate, regular rhythm, no gallop/murmur, no JVD Abdomen: normal bowel sounds, soft, non tender, no organomegaly, non distended Genitourinary: other - no carpenter Extremities: no cyanosis - no cyanosis right foot, left foot covered Skin: no rash Neurologic/Psychiatric: 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 Microbiology Date/Time Source Procedure Growth Status 03/14/19 13:00 Tissue AFB Specimen Processing Tissue - Final Resulted 03/14/19 13:00 Tissue Acid Fast Bacilli Smear - Final Resulted 03/14/19 13:00 Tissue Acid Fast Bacilli Culture Pending Resulted 03/14/19 13:00 Bone Gram Stain - Final Resulted 03/14/19 13:00 Bone Aerobic Culture - Preliminary NO GROWTH AFTER 48 HOURS Resulted 03/14/19 13:00 Bone Anaerobic Culture - Preliminary NO GROWTH Resulted Laboratory Tests Test 03/16/19 02:59 White Blood Count 5.8 K/UL (4.8-10.8) Red Blood Count 3.91 M/UL (4.70-6.10) L Hemoglobin 12.6 G/DL (14.2-18.0) L Hematocrit 36.7 % (42.0-52.0) L Mean Corpuscular Volume 94 FL (80-99) Mean Corpuscular Hemoglobin 32.2 PG (27.0-31.0) H Mean Corpuscular Hemoglobin Concent 34.3 G/DL (32.0-36.0) Red Cell Distribution Width 11.9 % (11.6-14.8) Platelet Count 168 K/UL (150-450) Mean Platelet Volume 6.5 FL (6.5-10.1) Neutrophils (%) (Auto) 63.8 % (45.0-75.0) Lymphocytes (%) (Auto) 21.1 % (20.0-45.0) Monocytes (%) (Auto) 9.9 % (1.0-10.0) Eosinophils (%) (Auto) 3.8 % (0.0-3.0) H Basophils (%) (Auto) 1.4 % (0.0-2.0) Sodium Level 138 MMOL/L (136-145) Potassium Level 3.6 MMOL/L (3.5-5.1) Chloride Level 101 MMOL/L (98-107) Carbon Dioxide Level 26 MMOL/L (21-32) Anion Gap 11 mmol/L (5-15) Blood Urea Nitrogen 18 mg/dL (7-18) Creatinine 1.8 MG/DL (0.55-1.30) H Estimat Glomerular Filtration Rate 41.2 mL/min (>60) Glucose Level 93 MG/DL (74-106) Calcium Level 9.2 MG/DL (8.5-10.1) Phosphorus Level 4.6 MG/DL (2.5-4.9) Magnesium Level 1.8 MG/DL (1.8-2.4) Vancomycin Level Trough 23.7 ug/mL (5.0-12.0) H Current Medications Medications (Trade) Dose Ordered Sig/Fiona Route PRN Reason Start Time Stop Time Status Last Admin Dose Admin Acetaminophen (Tylenol) 650 mg Q4H PRN ORAL fever 03/09/19 18:30 04/08/19 18:29 Acetaminophen/ Hydrocodone Bitart ([place] 5/325) 1 tab Q4H PRN ORAL Mild Pain (Pain Scale 1-3) 03/16/19 12:00 03/23/19 11:59 Dextrose (Dextrose 50%) 25 ml Q30M PRN IV Hypoglycemia 03/09/19 18:30 04/08/19 18:29 Dextrose (Dextrose 50%) 50 ml Q30M PRN IV Hypoglycemia 03/09/19 18:30 04/08/19 18:29 Diphenhydramine HCl (Benadryl) 25 mg Q6H PRN ORAL Itching/Pruritis 03/09/19 18:30 04/08/19 18:29 Econazole Nitrate (Spectazole) 1 applic DAILY TOPIC 03/11/19 17:00 04/10/19 16:59 03/16/19 10:21 Famotidine (Pepcid) 40 mg DAILY ORAL 03/10/19 09:00 8/17/19 08:59 03/16/19 08:52 Lorazepam (Ativan) 1 mg Q4H PRN ORAL For Anxiety 03/16/19 11:15 03/23/19 11:14 Morphine Sulfate (Morphine Sulfate) 2 mg Q4H PRN IVP Moderate Pain (Pain Scale 4-6) 03/16/19 12:00 03/23/19 11:59 Morphine Sulfate (Morphine Sulfate) 4 mg Q4H PRN IVP Severe Pain (Pain Scale 7-10) 03/16/19 12:00 03/23/19 11:59 Nicotine (Nicoderm) 1 patch Q24H TDERMAL 03/09/19 22:30 04/08/19 22:29 03/15/19 22:42 Ondansetron HCl (Zofran) 4 mg Q6H PRN IVP Nausea & Vomiting 03/09/19 18:30 04/08/19 18:29 Piperacillin Sod/ Tazobactam Sod 3.375 gm/Sodium Chloride 110 ml @ 27.5 mls/hr EVERY 8 HOURS IVPB 03/14/19 15:00 03/19/19 14:59 03/16/19 05:48 Polyethylene Glycol (Miralax) 17 gm HSPRN PRN ORAL Constipation 03/09/19 18:30 04/08/19 18:29 Potassium Chloride 10 meq/ Dextrose/Sodium Chloride 1,005 ml @ 75 mls/hr [id number] IV 03/14/19 00:00 04/13/19 00:00 03/16/19 05:48 Temazepam (Restoril) 15 mg HSPRN PRN ORAL Insomnia 03/16/19 21:00 03/23/19 20:59 Vancomycin HCl (Vanco rx to dose) 1 ea DAILY PRN MISC Per rx protocol 03/14/19 14:30 04/13/19 14:29 Vancomycin HCl 1 gm/Dextrose 275 ml @ 183.708 mls/hr Q12H IVPB 03/16/19 10:00 03/21/19 09:59 03/16/19 10:22 Darren Patel MD Mar 16, 2019 11:42
[2019-03-16 12:00] VITALS: BP 111/71
[2019-03-16] MEDS ORDERED: Morphine Sulfate 2mg/ml Inj(IV/IM USE ONLY) IVP PRN (12:00)
--- NOTE | 2019-03-16 14:41 | NUR ---
*-* INSURANCE *-* UPDATED CLINICALS HAVE BEEN FAXED TO: CYNTHIA COSBY: ALICJA REF# [id number] P:[phone] F:[phone] Addendum: 03/17/19 at 0919 by CANDY BURNETT CM CLINICALS AND REVIEWS FAXED
[2019-03-16 16:00] VITALS: BP 117/81
--- NOTE | 2019-03-16 16:02 | Surgery Progress Note ---
Surgery Progress Note Subjective Additional Comments no acute events comfortable stable Objective Last 24 Hour Vital Signs Date Time Temp Pulse Resp B/P (MAP) Pulse Ox O2 Delivery O2 Flow Rate FiO2 03/16/19 12:00 98.3 62 19 111/71 (84) 95 03/16/19 09:00 Room Air 03/16/19 08:00 98.6 69 18 122/78 (93) 95 03/16/19 00:00 98.3 98 18 138/99 (112) 95 03/15/19 21:00 Room Air 03/15/19 20:00 98.5 87 18 132/84 (100) 95 03/15/19 17:22 98.9 I&O Intake and Output 03/15/19 03/16/19 19:00 07:00 Intake Total 300 ml 870 ml Output Total 1550 ml Balance 300 ml -680 ml Intake Oral 300 ml 420 ml IV Total 450 ml Output Urine Total 1550 ml # Voids 3 2 Dressing: dry Wound: clean Cardiovascular: RSR Respiratory: clear Abdomen: soft, flat, present bowel sounds Extremities: no cyanosis, other Laboratory Tests Test 03/16/19 02:59 White Blood Count 5.8 K/UL (4.8-10.8) Red Blood Count 3.91 M/UL (4.70-6.10) L Hemoglobin 12.6 G/DL (14.2-18.0) L Hematocrit 36.7 % (42.0-52.0) L Mean Corpuscular Volume 94 FL (80-99) Mean Corpuscular Hemoglobin 32.2 PG (27.0-31.0) H Mean Corpuscular Hemoglobin Concent 34.3 G/DL (32.0-36.0) Red Cell Distribution Width 11.9 % (11.6-14.8) Platelet Count 168 K/UL (150-450) Mean Platelet Volume 6.5 FL (6.5-10.1) Neutrophils (%) (Auto) 63.8 % (45.0-75.0) Lymphocytes (%) (Auto) 21.1 % (20.0-45.0) Monocytes (%) (Auto) 9.9 % (1.0-10.0) Eosinophils (%) (Auto) 3.8 % (0.0-3.0) H Basophils (%) (Auto) 1.4 % (0.0-2.0) Sodium Level 138 MMOL/L (136-145) Potassium Level 3.6 MMOL/L (3.5-5.1) Chloride Level 101 MMOL/L (98-107) Carbon Dioxide Level 26 MMOL/L (21-32) Anion Gap 11 mmol/L (5-15) Blood Urea Nitrogen 18 mg/dL (7-18) Creatinine 1.8 MG/DL (0.55-1.30) H Estimat Glomerular Filtration Rate 41.2 mL/min (>60) Glucose Level 93 MG/DL (74-106) Calcium Level 9.2 MG/DL (8.5-10.1) Phosphorus Level 4.6 MG/DL (2.5-4.9) Magnesium Level 1.8 MG/DL (1.8-2.4) Vancomycin Level Trough 23.7 ug/mL (5.0-12.0) H Plan Problems: (1) Cellulitis Assessment & Plan: 43-year-old male with medical comorbidities as above who is potentially a poor historian presented with worsening ulcer cellulitis and wound of his left leg/foot. Afebrile here and having stable labs noted. Plain films as below. There is a prominent ulcer along the lateral aspect of the foot near the head of the fifth metatarsal, which should be confirmed clinically. There is a dislocation of the fifth MTP joint as well as a fracture of the head of the fifth metatarsal, which appears abnormally lucent suggesting this may be a pathologic or insufficiency type fracture. Clinical correlation is needed. IMPRESSION: Acute fracture dislocation of the fifth MTP joint as described above. Adjacent ulceration with lucency of the head of the fifth metatarsal is suspicious for acute osteomyelitis which may be superimposed. Please correlate clinically. Strong suspicion that there is osteomyelitis at the fifth metatarsal head based on examination where the wound is open and the bone is palpable. Etiology of the wound is still unknown and patient story is somewhat hard to believe Recommend admission for IV antibiotics and further work-up. MRI of the left foot ordered --> indings: There is area of ulceration along the lateral aspect of the foot near the head of the fifth metatarsal. There is destruction of the head of the metatarsal likely on the basis of acute osteomyelitis. Abnormal low T1/high T2 signal and abnormal enhancement associated with this demonstrated within the shaft of the fifth metatarsal. There is no abscess identified. There is intense enhancement of the soft tissues in this region consistent with cellulitis. There is relative sparing of the base of the fifth metatarsal but the majority of the fifth metatarsal distal to the base appears involved. There is relative sparing of the fifth proximal middle and distal phalange which exhibit relatively normal signal. There is a dislocation of the fifth MTP joint. While the abnormal bone marrow edema signal may be due to acute fracture alone, the destructive appearance of the fifth metatarsal head and the presence of adjacent ulceration is by imaging criteria highly suspicious for acute osteomyelitis and infection. Clinical signs and symptoms of infection should be confirmed but the findings overall highly suspicious for acute osteomyelitis with pathologic fracture or destruction of the fifth metatarsal head. IMPRESSION: Findings highly suspicious for acute osteomyelitis of the fifth metatarsal head and shaft with destruction of the head of the fifth metatarsal, pathologic fracture and dislocation of the fifth MTP joint. s/p amputation doing well recovering cont current treatment d/c planning Thank you for allowing me to participate in patient's care will follow with recommendations Jeffery Rogers Mar 16, 2019 16:02
--- NOTE | 2019-03-16 18:16 | Nephrology Progress Note ---
Assessment/Plan Problem List: (1) Cellulitis (2) Dehydration (3) Anemia (4) Osteomyelitis of left foot (5) Cirrhosis of liver (6) Jaundice (7) Pancreatitis Plan #ANTHONY - pre-renal vs vanco induced nephrotoxicity vsAIN in the setting of zosyn # osteo of left foot #elevated liver enzymes - continue D51/2NS with 10meq of kcl at 75cc for now - check urine eos-> negative - avoid supratherapeutic vanco level - zosyn dose adjusted - monitor UOP - monitor Cr and BMP daily - strict I&Os Subjective Subjective post op paain controlled remains on d51/2NS at 75cc Cr slightly higher at 1.8 Objective Objective Last 24 Hour Vital Signs Date Time Temp Pulse Resp B/P (MAP) Pulse Ox O2 Delivery O2 Flow Rate FiO2 03/16/19 16:00 98.0 65 19 117/81 (93) 95 03/16/19 12:00 98.3 62 19 111/71 (84) 95 03/16/19 09:00 Room Air 03/16/19 08:00 98.6 69 18 122/78 (93) 95 03/16/19 00:00 98.3 98 18 138/99 (112) 95 03/15/19 21:00 Room Air 03/15/19 20:00 98.5 87 18 132/84 (100) 95 Intake and Output 03/15/19 03/16/19 19:00 07:00 Intake Total 300 ml 870 ml Output Total 1550 ml Balance 300 ml -680 ml Intake Oral 300 ml 420 ml IV Total 450 ml Output Urine Total 1550 ml # Voids 3 2 Laboratory Tests 03/16/19 02:59: White Blood Count 5.8, Red Blood Count 3.91L, Hemoglobin 12.6L, Hematocrit 36.7L , Mean Corpuscular Volume 94, Mean Corpuscular Hemoglobin 32.2H, Mean Corpuscular Hemoglobin Concent 34.3, Red Cell Distribution Width 11.9, Platelet Count 168, Mean Platelet Volume 6.5, Neutrophils (%) (Auto) 63.8, Lymphocytes (% ) (Auto) 21.1, Monocytes (%) (Auto) 9.9, Eosinophils (%) (Auto) 3.8H, Basophils (%) (Auto) 1.4, Sodium Level 138, Potassium Level 3.6, Chloride Level 101, Carbon Dioxide Level 26, Anion Gap 11, Blood Urea Nitrogen 18, Creatinine 1.8H, Estimat Glomerular Filtration Rate 41.2, Glucose Level 93, Calcium Level 9.2, Phosphorus Level 4.6, Magnesium Level 1.8, Vancomycin Level Trough 23.7H Height (Feet): 6 Height (Inches): 5.00 Weight (Pounds): 233 Rosangela Galvez M.D. Mar 16, 2019 18:16
--- NOTE | 2019-03-16 18:43 | NUR ---
NURSE NOTES: Patient reported some discomfort at site where IV was removed, reported site was tender. Noted some mild swelling, no redness or other signs of infiltration. Patient offered ice pack and pillow for left arm and instructed to keep left arm elevated. Patient now reports pain in left arm is decreasing. Will continue to monitor.
--- NOTE | 2019-03-16 19:11 | NUR ---
HAND-OFF: Report given to Abby VAZ. Patient is in stable condition.
--- NOTE | 2019-03-16 19:12 | NUR ---
NURSE NOTES: Received report & pt from ТАТЬЯНА Martínez. Pt lying in bed, a&ox4, in room air. No s/s of acute distress & c/o 5/10 pain at this time. Will give PRN pain med when due & pt verbalized understanding. Surgical dressing C/D/I. IV site intact with IVF running as ordered. Bed in lowest position, call light within reach. Will continue to monitor.
--- NOTE | 2019-03-16 19:51 | General Progress Note ---
Assessment/Plan Status: stable Assessment/Plan: 43 y/o M admitted due to foot ulcer and pain # osteomyelitis of the fifth metatarsal head s/p the following on 03/14: 1. Left fifth partial ray amputation. 2. Bone biopsy, left fifth metatarsal. 3. Complex wound closure, advancement flap. - Surgery and podiatry consult appreciated. - MRI L foot:Findings highly suspicious for acute osteomyelitis of the fifth metatarsal head and shaft with destruction of the head of the fifth metatarsal, pathologic fracture and dislocation of the fifth MTP joint. - Podiatry consult appreciated - Vancomycin and Zosyn antibiotics started and ID consult appreciated - CRP and ESR elevated - Pain control. NORCO PRN - dw ID, plan regarding abx is pending intra-op culture and path # ANTHONY Etiology prerenal vs AIN due to antibiotics vs other IVF NS 125 cc hr Urine studies Monitor response in the renal function Nephrology consult appreciated # History of recreational substance use ( MJ) - Counselling. - DVT ppx - FULL CODE Subjective Date patient seen: Mar 16, 2019 ROS Limited/Unobtainable: No Allergies: Coded Allergies: Cat Dander (Unverified Allergy, Unknown, Itching, 03/09/19) Uncoded Allergies: LACTOSE INTOLERANCE (Adverse Reaction, Severe, 06/05/14) FORMATION OF GAS All Systems: reviewed and negative except above Subjective No acute overnight events, +BM, pain adequately controlled, tolerating diet, has no complaints Objective Last 24 Hour Vital Signs Date Time Temp Pulse Resp B/P (MAP) Pulse Ox O2 Delivery O2 Flow Rate FiO2 03/16/19 16:00 98.0 65 19 117/81 (93) 95 03/16/19 12:00 98.3 62 19 111/71 (84) 95 03/16/19 09:00 Room Air 03/16/19 08:00 98.6 69 18 122/78 (93) 95 03/16/19 00:00 98.3 98 18 138/99 (112) 95 03/15/19 21:00 Room Air 03/15/19 20:00 98.5 87 18 132/84 (100) 95 Intake and Output 03/15/19 03/16/19 19:00 07:00 Intake Total 300 ml 870 ml Output Total 1550 ml Balance 300 ml -680 ml Intake Oral 300 ml 420 ml IV Total 450 ml Output Urine Total 1550 ml # Voids 3 2 Laboratory Tests 03/16/19 02:59: White Blood Count 5.8, Red Blood Count 3.91L, Hemoglobin 12.6L, Hematocrit 36.7L , Mean Corpuscular Volume 94, Mean Corpuscular Hemoglobin 32.2H, Mean Corpuscular Hemoglobin Concent 34.3, Red Cell Distribution Width 11.9, Platelet Count 168, Mean Platelet Volume 6.5, Neutrophils (%) (Auto) 63.8, Lymphocytes (% ) (Auto) 21.1, Monocytes (%) (Auto) 9.9, Eosinophils (%) (Auto) 3.8H, Basophils (%) (Auto) 1.4, Sodium Level 138, Potassium Level 3.6, Chloride Level 101, Carbon Dioxide Level 26, Anion Gap 11, Blood Urea Nitrogen 18, Creatinine 1.8H, Estimat Glomerular Filtration Rate 41.2, Glucose Level 93, Calcium Level 9.2, Phosphorus Level 4.6, Magnesium Level 1.8, Vancomycin Level Trough 23.7H Height (Feet): 6 Height (Inches): 5.00 Weight (Pounds): 233 Objective General Appearance: WD/WN, no apparent distress, alert EENT: normal ENT inspection Neck: non-tender, normal alignment, supple Cardiovascular: normal rate, regular rhythm, no JVD Respiratory/Chest: chest wall non-tender, lungs clear, normal breath sounds, no respiratory distress Abdomen: non tender, soft, no organomegaly, no mass Extremities: other - left foot wrapped c/d/i, toes warm to touch Edema: no edema noted Arm (L), no edema noted Arm (R), no edema noted Leg (L), no edema noted Leg (R), no edema noted Pedal (L), no edema noted Pedal (R), no edema noted 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
[2019-03-16 20:00] VITALS: BP 132/84
[2019-03-17] MEDS: Morphine Sulfate 4mg/ml Inj (IV USE ONLY) IVP PRN ×4 (03:12→18:24)
[2019-03-17 04:45] VITALS: BP 123/79
[2019-03-17] MEDS: Zosyn 3.375gm q8h **Extended infusion IVPB SCH ×2 (05:17)
--- NOTE | 2019-03-17 07:10 | NUR ---
NURSE NOTES: Report received from Abby RN, rounds made. Patient sitting in high fowlers position, in bed. Alert, oriented x4, calm. No distress on RA. No NV. Tolerating breakfast well. IVF (D5 1/2 NS + 10 KCL) infusing to LFA at 75 ml/hr, site asymptomatic. Left foot dressing CDI, skin warm, wiggles, no NT to LE, slightly to toes (which isn't new). Pain to left ankle 3/10, denies need for pain medication at this time. LOU nicotine patch in place. Instructed on IS, demonstrated correctly, verbalized understanding for indication/10 x an hour. Call light in reach, bed in lowest position, will continue to monitor.
[2019-03-17 07:16] LABS: BASOPHILS % (AUTO) 0.9 % (0.0-2.0); EOSINOPHILS % (AUTO) 4.8 % (0.0-3.0); HEMATOCRIT 35.3 % (42.0-52.0); HEMOGLOBIN 12.1 G/DL (14.2-18.0); LYMPHOCYTES % (AUTO) 19.6 % (20.0-45.0); MEAN CORPUSCULAR VOLUME 95 FL (80-99); MONOCYTES % (AUTO) 8.7 % (1.0-10.0); NEUTROPHILS % (AUTO) 66.1 % (45.0-75.0); PLATELET COUNT 146 K/UL (150-450); RED BLOOD COUNT 3.73 M/UL (4.70-6.10); RED CELL DISTRIBUTION WIDTH 12.2 % (11.6-14.8); WHITE BLOOD COUNT 6.4 K/UL (4.8-10.8)
[2019-03-17 07:23] LABS: ANION GAP 10 mmol/L (5-15); BLOOD UREA NITROGEN 21 mg/dL (7-18); CALCIUM 9.4 MG/DL (8.5-10.1); CARBON DIOXIDE 26 MMOL/L (21-32); CHLORIDE 101 MMOL/L (98-107); CREATININE 1.7 MG/DL (0.55-1.30); PHOSPHORUS 4.5 MG/DL (2.5-4.9); POTASSIUM 3.5 MMOL/L (3.5-5.1); SODIUM 137 MMOL/L (136-145)
--- NOTE | 2019-03-17 07:30 | NUR ---
HAND-OFF: Report given to ТАТЬЯНА Villegas. Pt in stable condition. Rounds done.
[2019-03-17 08:00] VITALS: BP 128/75
[2019-03-17] MEDS: Econazole 1% Cream 15gm TOPIC SCH ×2 (08:48→11:56)
[2019-03-17] MEDS: Potassium Chloride 10 MEQ in D5 1/2NS 1,000 ML IV SCH (08:48)
[2019-03-17] MEDS: Vancomycin 1gm/D5W 275ml IVPB SCH ×2 (09:59)
--- NOTE | 2019-03-17 09:59 | NUR ---
*-* INSURANCE *-* UPDATED CLINICALS HAVE BEEN FAXED TO: CYNTHIA COSBY: ALICJA REF# [id number] P:[phone] F:[phone]
--- NOTE | 2019-03-17 11:30 | NUR ---
*-* INSURANCE *-* CYNTHIA CALLED REQUESTING CLINICALS FOR DATES 03/11- INFORMATION FAXED: CYNTHIA COSBY: ALICJA REF# [id number] P:[phone] F:[phone]
[2019-03-17] MEDS ORDERED: NORCO 5-325 TA1 EACH ORAL (11:35)
[2019-03-17] MEDS ORDERED: DOXYCYCLINE MO100 MG ORAL (11:35)
[2019-03-17] MEDS ORDERED: AMOX TR-K CLV1 EAC1 ORAL (11:37)
--- NOTE | 2019-03-17 11:40 | Discharge Instructions ---
Discharge Instructions Discharge Instructions Follow up with: Dr. Enmanuel Kim 1 week, PCP 1 week with repeat BMP Call MD/Return to Hospital if: uncontrolled pain, bleeding; fevers Diet: regular Resume Normal Activity?: No Activity: other - LLE weight bearing to heel For Surgical Patients Dressing Care: keep dry and clean Contact your physician for: bleeding, pain, yellowish discharge in the op. site For Congestive Heart Failure Reminder Report to your physician any weight gain of 5 pounds or more in one week. Savi Vasquez MD Mar 17, 2019 11:40
[2019-03-17 12:00] VITALS: BP 125/82
--- NOTE | 2019-03-17 12:00 | NUR ---
NURSE NOTES: Patient requested that the topical medicated cream (Spectazole) to be applied later due to may have dressing change with MD and would like it applied then, however, no dressing change done today topical cream applied to entire right foot and left toes at this time.
--- NOTE | 2019-03-17 12:33 | Surgery Progress Note ---
Surgery Progress Note Subjective Additional Comments no acute events comfortable stable Objective Last 24 Hour Vital Signs Date Time Temp Pulse Resp B/P (MAP) Pulse Ox O2 Delivery O2 Flow Rate FiO2 03/17/19 09:00 Room Air 03/17/19 08:00 98.6 69 19 128/75 (92) 95 03/17/19 04:45 98.4 69 16 123/79 (94) 94 03/16/19 20:19 Room Air 03/16/19 20:00 99.2 81 18 132/84 (100) 98 03/16/19 16:00 98.0 65 19 117/81 (93) 95 I&O Intake and Output 03/16/19 03/17/19 19:00 07:00 Intake Total 2885.0 ml 1500 ml Output Total 1750 ml Balance 2885.0 ml -250 ml Intake Oral 1600 ml 600 ml IV Total 1285.0 ml 900 ml Output Urine Total 1750 ml # Voids 3 Dressing: dry Wound: clean Cardiovascular: RSR Respiratory: clear Abdomen: soft, present bowel sounds Extremities: no cyanosis, other Laboratory Tests Test 03/17/19 04:50 White Blood Count 6.4 K/UL (4.8-10.8) Red Blood Count 3.73 M/UL (4.70-6.10) L Hemoglobin 12.1 G/DL (14.2-18.0) L Hematocrit 35.3 % (42.0-52.0) L Mean Corpuscular Volume 95 FL (80-99) Mean Corpuscular Hemoglobin 32.3 PG (27.0-31.0) H Mean Corpuscular Hemoglobin Concent 34.1 G/DL (32.0-36.0) Red Cell Distribution Width 12.2 % (11.6-14.8) Platelet Count 146 K/UL (150-450) L Mean Platelet Volume 7.4 FL (6.5-10.1) Neutrophils (%) (Auto) 66.1 % (45.0-75.0) Lymphocytes (%) (Auto) 19.6 % (20.0-45.0) L Monocytes (%) (Auto) 8.7 % (1.0-10.0) Eosinophils (%) (Auto) 4.8 % (0.0-3.0) H Basophils (%) (Auto) 0.9 % (0.0-2.0) Sodium Level 137 MMOL/L (136-145) Potassium Level 3.5 MMOL/L (3.5-5.1) Chloride Level 101 MMOL/L (98-107) Carbon Dioxide Level 26 MMOL/L (21-32) Anion Gap 10 mmol/L (5-15) Blood Urea Nitrogen 21 mg/dL (7-18) H Creatinine 1.7 MG/DL (0.55-1.30) H Estimat Glomerular Filtration Rate 44.0 mL/min (>60) Glucose Level 94 MG/DL (74-106) Calcium Level 9.4 MG/DL (8.5-10.1) Phosphorus Level 4.5 MG/DL (2.5-4.9) Magnesium Level 1.8 MG/DL (1.8-2.4) Plan Problems: (1) Cellulitis Assessment & Plan: 43-year-old male with medical comorbidities as above who is potentially a poor historian presented with worsening ulcer cellulitis and wound of his left leg/foot. Afebrile here and having stable labs noted. Plain films as below. There is a prominent ulcer along the lateral aspect of the foot near the head of the fifth metatarsal, which should be confirmed clinically. There is a dislocation of the fifth MTP joint as well as a fracture of the head of the fifth metatarsal, which appears abnormally lucent suggesting this may be a pathologic or insufficiency type fracture. Clinical correlation is needed. IMPRESSION: Acute fracture dislocation of the fifth MTP joint as described above. Adjacent ulceration with lucency of the head of the fifth metatarsal is suspicious for acute osteomyelitis which may be superimposed. Please correlate clinically. Strong suspicion that there is osteomyelitis at the fifth metatarsal head based on examination where the wound is open and the bone is palpable. Etiology of the wound is still unknown and patient story is somewhat hard to believe Recommend admission for IV antibiotics and further work-up. MRI of the left foot ordered --> indings: There is area of ulceration along the lateral aspect of the foot near the head of the fifth metatarsal. There is destruction of the head of the metatarsal likely on the basis of acute osteomyelitis. Abnormal low T1/high T2 signal and abnormal enhancement associated with this demonstrated within the shaft of the fifth metatarsal. There is no abscess identified. There is intense enhancement of the soft tissues in this region consistent with cellulitis. There is relative sparing of the base of the fifth metatarsal but the majority of the fifth metatarsal distal to the base appears involved. There is relative sparing of the fifth proximal middle and distal phalange which exhibit relatively normal signal. There is a dislocation of the fifth MTP joint. While the abnormal bone marrow edema signal may be due to acute fracture alone, the destructive appearance of the fifth metatarsal head and the presence of adjacent ulceration is by imaging criteria highly suspicious for acute osteomyelitis and infection. Clinical signs and symptoms of infection should be confirmed but the findings overall highly suspicious for acute osteomyelitis with pathologic fracture or destruction of the fifth metatarsal head. IMPRESSION: Findings highly suspicious for acute osteomyelitis of the fifth metatarsal head and shaft with destruction of the head of the fifth metatarsal, pathologic fracture and dislocation of the fifth MTP joint. s/p amputation doing well recovering cont current treatment d/c planning Thank you for allowing me to participate in patient's care will follow with recommendations D/C plan: keep dressings f/u with podiatry in 1 week for suture removal Physical therapy evel. heel touch okay thank you Jeffery Rogers Mar 17, 2019 12:33
--- NOTE | 2019-03-17 12:35 | Nephrology Progress Note ---
Assessment/Plan Problem List: (1) Cellulitis (2) Dehydration (3) Anemia (4) Osteomyelitis of left foot (5) Cirrhosis of liver (6) Jaundice (7) Pancreatitis Plan #ANTHONY - pre-renal vs vanco induced nephrotoxicity vsAIN in the setting of zosyn # osteo of left foot #elevated liver enzymes - check urine eos-> negative - Dc on augmenting and doxy - monitor UOP - monitor Cr and BMP - strict I&Os - f/u with Me in clinic in one week for repeat BMP Subjective Subjective post op pin controlled Cr stable C planning today Objective Objective Last 24 Hour Vital Signs Date Time Temp Pulse Resp B/P (MAP) Pulse Ox O2 Delivery O2 Flow Rate FiO2 03/17/19 09:00 Room Air 03/17/19 08:00 98.6 69 19 128/75 (92) 95 03/17/19 04:45 98.4 69 16 123/79 (94) 94 03/16/19 20:19 Room Air 03/16/19 20:00 99.2 81 18 132/84 (100) 98 03/16/19 16:00 98.0 65 19 117/81 (93) 95 Intake and Output 03/16/19 03/17/19 19:00 07:00 Intake Total 2885.0 ml 1500 ml Output Total 1750 ml Balance 2885.0 ml -250 ml Intake Oral 1600 ml 600 ml IV Total 1285.0 ml 900 ml Output Urine Total 1750 ml # Voids 3 Laboratory Tests 03/17/19 04:50: White Blood Count 6.4, Red Blood Count 3.73L, Hemoglobin 12.1L, Hematocrit 35.3L , Mean Corpuscular Volume 95, Mean Corpuscular Hemoglobin 32.3H, Mean Corpuscular Hemoglobin Concent 34.1, Red Cell Distribution Width 12.2, Platelet Count 146L, Mean Platelet Volume 7.4, Neutrophils (%) (Auto) 66.1, Lymphocytes ( %) (Auto) 19.6L, Monocytes (%) (Auto) 8.7, Eosinophils (%) (Auto) 4.8H, Basophils (%) (Auto) 0.9, Sodium Level 137, Potassium Level 3.5, Chloride Level 101, Carbon Dioxide Level 26, Anion Gap 10, Blood Urea Nitrogen 21H, Creatinine 1.7H, Estimat Glomerular Filtration Rate 44.0, Glucose Level 94, Calcium Level 9.4, Phosphorus Level 4.5, Magnesium Level 1.8 Height (Feet): 6 Height (Inches): 5.00 Weight (Pounds): 233 Rosangela Galvez M.D. Mar 17, 2019 12:35
[2019-03-17 16:00] VITALS: BP 135/90
--- NOTE | 2019-03-17 17:37 | General Progress Note ---
Assessment/Plan Status: stable Assessment/Plan: 43 y/o M admitted due to foot ulcer and pain # osteomyelitis of the fifth metatarsal head s/p the following on 03/14: 1. Left fifth partial ray amputation. 2. Bone biopsy, left fifth metatarsal. 3. Complex wound closure, advancement flap. - Surgery and podiatry consult appreciated. - MRI L foot:Findings highly suspicious for acute osteomyelitis of the fifth metatarsal head and shaft with destruction of the head of the fifth metatarsal, pathologic fracture and dislocation of the fifth MTP joint. - Podiatry consult appreciated - Vancomycin and Zosyn antibiotics DC - CRP and ESR elevated - Pain control. NORCO PRN -path report: clear margins with no definite gross evidence of OM - dw ID, cont doxycycline and augmentin x 7 days -pending PT for DC clearance -will f/u with podiatry in 7 days for suture removal # ANTHONY - trending down Etiology prerenal vs AIN due to antibiotics vs other IVF NS 125 cc hr Urine studies Monitor response in the renal function Nephrology consult appreciated will need f/u with PCP for repeat BMP in 5-7 days # History of recreational substance use ( MJ) - Counselling. - DVT ppx - FULL CODE Subjective Date patient seen: Mar 17, 2019 Allergies: Coded Allergies: Cat Dander (Unverified Allergy, Unknown, Itching, 03/09/19) Uncoded Allergies: LACTOSE INTOLERANCE (Adverse Reaction, Severe, 06/05/14) FORMATION OF GAS Subjective No acute overnight events, +BM, pain adequately controlled, tolerating diet, has no complaints, podiatry cleared for weight on L heel, Bone cx with clear margins, no evidence of OM, pending PT Objective Last 24 Hour Vital Signs Date Time Temp Pulse Resp B/P (MAP) Pulse Ox O2 Delivery O2 Flow Rate FiO2 03/17/19 12:00 98.6 81 19 125/82 (96) 97 03/17/19 09:00 Room Air 03/17/19 08:00 98.6 69 19 128/75 (92) 95 03/17/19 04:45 98.4 69 16 123/79 (94) 94 03/16/19 20:19 Room Air 03/16/19 20:00 99.2 81 18 132/84 (100) 98 Intake and Output 03/16/19 03/17/19 19:00 07:00 Intake Total 2885.0 ml 1500 ml Output Total 1750 ml Balance 2885.0 ml -250 ml Intake Oral 1600 ml 600 ml IV Total 1285.0 ml 900 ml Output Urine Total 1750 ml # Voids 3 Laboratory Tests 03/17/19 04:50: White Blood Count 6.4, Red Blood Count 3.73L, Hemoglobin 12.1L, Hematocrit 35.3L , Mean Corpuscular Volume 95, Mean Corpuscular Hemoglobin 32.3H, Mean Corpuscular Hemoglobin Concent 34.1, Red Cell Distribution Width 12.2, Platelet Count 146L, Mean Platelet Volume 7.4, Neutrophils (%) (Auto) 66.1, Lymphocytes ( %) (Auto) 19.6L, Monocytes (%) (Auto) 8.7, Eosinophils (%) (Auto) 4.8H, Basophils (%) (Auto) 0.9, Sodium Level 137, Potassium Level 3.5, Chloride Level 101, Carbon Dioxide Level 26, Anion Gap 10, Blood Urea Nitrogen 21H, Creatinine 1.7H, Estimat Glomerular Filtration Rate 44.0, Glucose Level 94, Calcium Level 9.4, Phosphorus Level 4.5, Magnesium Level 1.8 Height (Feet): 6 Height (Inches): 5.00 Weight (Pounds): 233 Objective General Appearance: WD/WN, no apparent distress, alert EENT: normal ENT inspection Neck: non-tender, normal alignment, supple Cardiovascular: normal rate, regular rhythm, no JVD Respiratory/Chest: chest wall non-tender, lungs clear, normal breath sounds, no respiratory distress Abdomen: non tender, soft, no organomegaly, no mass Extremities: other - left foot wrapped c/d/i, toes warm to touch Edema: no edema noted Arm (L), no edema noted Arm (R), no edema noted Leg (L), no edema noted Leg (R), no edema noted Pedal (L), no edema noted Pedal (R), no edema noted Generalized 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
--- NOTE | 2019-03-17 18:00 | NUR ---
NURSE NOTES: Notified PT that new for PT evaluation and clearance with left heel weight bearing for discharge. Dr. Vasquez notified that PT hasn't evaluated patient yet and per PT patient may not be seen today, likely tomorrow. Patient aware of above. Prescription x1 (antibiotics x2 and [place])faxed to [facility], delivered and stored at 3E nurses station lock box.
--- NOTE | 2019-03-17 19:15 | NUR ---
HAND-OFF: Report given to Gosia VAZ. Endorsed patient prescription medications x3 have been delivered from [facility] and stored in 3E nurses station lock box.
--- NOTE | 2019-03-17 19:15 | NUR ---
NURSE NOTES: Received report from ТАТЬЯНА Villegas. Patient sitting up in bed, no distress noted. Bed in low position, locked, side rails up x2. Call light within reach. Discussed pain management goals. Will continue to monitor.
[2019-03-17 20:00] VITALS: BP 130/83
[2019-03-17] MEDS: Doxycycline Monohydrate 100mg ORAL SCH (20:22)
[2019-03-17] MEDS: HYDROcodone/Acetamin 5/325 tab ORAL PRN (20:39)
[2019-03-18] VITALS: BP 127/85
[2019-03-18] MEDS: Morphine Sulfate 4mg/ml Inj (IV USE ONLY) IVP PRN ×2 (00:05→06:47)
[2019-03-18 04:00] VITALS: BP 126/84
--- NOTE | 2019-03-18 07:10 | NUR ---
NURSE NOTES: Report received from Gosia VAZ, rounds made. Patient sitting in high fowlers position in bed. Alert oriented x4, calm. Pain to left lateral ankle 2/10. Ice pack to left foot. Left foot dressing CDI. CMS + to LLE, wiggles, skin warm, mild edema noted to left toes. RFA heplock intact. LFA with redness no swelling, skin remains intact, ice compress in place per patient request. Nicoderm patch to LOVE. Encouraged IS. Call light in reach, bed in lowest position, will continue to monitor.
--- NOTE | 2019-03-18 07:13 | NUR ---
HAND-OFF: Report given to ТАТЬЯНА Villegas.
[2019-03-18 08:00] VITALS: BP 128/76
[2019-03-18] MEDS: Doxycycline Monohydrate 100mg ORAL SCH (08:27)
[2019-03-18] MEDS: Econazole 1% Cream 15gm TOPIC SCH (08:28)
--- NOTE | 2019-03-18 09:45 | NUR ---
PT EVALUATION NOTE Patient seen for initial evaluation, see complete evaluation for details. Patient presents with impaired functional mobility s/p L foot surgery with heel WB precaution. Patient will benefit from skilled inpatient PT intervention to address safety and adherance to WB precautions with functional mobility training including stair training. Recommend discharge home once medically cleared by MD. Patient will benefit from FWW for ambulation at home. Addendum: 03/18/19 at 1336 by KEREN LAMAR PT Amended: Links added.
[2019-03-18] MEDS: HYDROcodone/Acetamin 5/325 tab ORAL PRN (10:30)
--- NOTE | 2019-03-18 10:30 | NUR ---
NURSE NOTES: Catracho walker picked up from [employer] and delivered to patient. Addendum: 03/18/19 at 1138 by Nelly Real RN Patient said he has a pair of crutches (functioning) at home and does not need another pair. Addendum: 03/18/19 at 1140 by Nelly Real RN Provided patient with post op shoe from [employer] as well.
[2019-03-18] MEDS ORDERED: HYDROcodone/Acetamin 5/325 tab ORAL SCH (10:45)
--- NOTE | 2019-03-18 10:45 | NUR ---
NURSE NOTES: Notified Dr. Vasquez that patient feels that [place] 5mg/325mg one tablet is not effective. Order received for an additional [place] 5mg/325mg one tab x1 dose and MD will be in later today to see patient. Patient updated with new orders and plan, verbalized understanding. Will medicate as ordered. Will continue to monitor. Addendum: 03/18/19 at 1136 by Nelly Real RN Dr. Vasquez is aware that patient has been cleared by Physical Therapy for discharge using left heel weight bearing with rolling walker for ambulation and crutches for stairs. (Evaluation completed this AM at 0930)
[2019-03-18 12:00] VITALS: BP 122/78
--- NOTE | 2019-03-18 12:29 | Surgery Progress Note ---
Surgery Progress Note Subjective Symptoms: improved, pain same, tolerating diet, voiding well, passing flatus, BM Objective Last 24 Hour Vital Signs Date Time Temp Pulse Resp B/P (MAP) Pulse Ox O2 Delivery O2 Flow Rate FiO2 03/18/19 12:00 98.6 79 20 122/78 (93) 95 03/18/19 09:00 Room Air 03/18/19 08:00 99.8 79 21 128/76 (93) 99 03/18/19 04:00 98.6 82 20 126/84 (98) 97 03/18/19 00:00 98.4 78 16 127/85 (99) 93 03/17/19 21:00 Room Air 03/17/19 20:00 99.1 77 18 130/83 (99) 95 03/17/19 16:00 98.0 85 18 135/90 (105) 97 I&O Intake and Output 03/17/19 03/18/19 19:00 07:00 Intake Total 2122 ml Output Total 1250 ml Balance 872 ml Intake Oral 2047 ml IV Total 75 ml Output Urine Total 1250 ml # Voids 2 # Bowel Movements 1 1 Dressing: dry Wound: clean Cardiovascular: RSR Respiratory: clear Abdomen: soft, flat Extremities: no edema, no tenderness, no cyanosis Laboratory Tests Test 03/17/19 21:25 Vancomycin Level Trough 16.2 ug/mL (5.0-12.0) H Plan Problems: (1) Cellulitis Assessment & Plan: 43-year-old male with medical comorbidities as above who is potentially a poor historian presented with worsening ulcer cellulitis and wound of his left leg/foot. Afebrile here and having stable labs noted. Plain films as below. There is a prominent ulcer along the lateral aspect of the foot near the head of the fifth metatarsal, which should be confirmed clinically. There is a dislocation of the fifth MTP joint as well as a fracture of the head of the fifth metatarsal, which appears abnormally lucent suggesting this may be a pathologic or insufficiency type fracture. Clinical correlation is needed. IMPRESSION: Acute fracture dislocation of the fifth MTP joint as described above. Adjacent ulceration with lucency of the head of the fifth metatarsal is suspicious for acute osteomyelitis which may be superimposed. Please correlate clinically. Strong suspicion that there is osteomyelitis at the fifth metatarsal head based on examination where the wound is open and the bone is palpable. Etiology of the wound is still unknown and patient story is somewhat hard to believe Recommend admission for IV antibiotics and further work-up. MRI of the left foot ordered --> indings: There is area of ulceration along the lateral aspect of the foot near the head of the fifth metatarsal. There is destruction of the head of the metatarsal likely on the basis of acute osteomyelitis. Abnormal low T1/high T2 signal and abnormal enhancement associated with this demonstrated within the shaft of the fifth metatarsal. There is no abscess identified. There is intense enhancement of the soft tissues in this region consistent with cellulitis. There is relative sparing of the base of the fifth metatarsal but the majority of the fifth metatarsal distal to the base appears involved. There is relative sparing of the fifth proximal middle and distal phalange which exhibit relatively normal signal. There is a dislocation of the fifth MTP joint. While the abnormal bone marrow edema signal may be due to acute fracture alone, the destructive appearance of the fifth metatarsal head and the presence of adjacent ulceration is by imaging criteria highly suspicious for acute osteomyelitis and infection. Clinical signs and symptoms of infection should be confirmed but the findings overall highly suspicious for acute osteomyelitis with pathologic fracture or destruction of the fifth metatarsal head. IMPRESSION: Findings highly suspicious for acute osteomyelitis of the fifth metatarsal head and shaft with destruction of the head of the fifth metatarsal, pathologic fracture and dislocation of the fifth MTP joint. s/p amputation doing well recovering cont current treatment d/c planning Thank you for allowing me to participate in patient's care will follow with recommendations D/C plan: keep dressings f/u with podiatry in 1 week for suture removal Physical therapy evel. heel touch okay thank you Jeffery Rogers Mar 18, 2019 12:29
--- NOTE | 2019-03-18 12:52 | NUR ---
MEDICAL PHYSICISTTECHNOLOGY INSTRUCTOR SI; OSTEOMYELITIS T. 99.8 HR 79 RR 20 B/P 128/76 RA 98% IS; AUGMENTIN PO DOXYCYCLINE PO MED/SURG STATUS
[2019-03-18] MEDS ORDERED: Acetaminophen 500mg (ES) tab ORAL SCH (13:00)
--- NOTE | 2019-03-18 13:55 | NUR ---
*-* INSURANCE *-* UPDATED CLINICALS AND REVIEW HAVE BEEN FAXED TO: CYNTHIA COSBY: ALICJA REF# [id number] P:[phone] F:[phone]
--- NOTE | 2019-03-18 14:08 | Infectious Diseases Prog Note ---
Assessment/Plan Assessment/Plan ASSESSMENT AND PLAN: 1. 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 Neuropathy. 3. No history of diabetes. 4. Hypertension. 5. Blood pressure treatment per primary. 6. History of wound infection and treatment in the past. 7. History of peripheral neuropathy. 8. History of spinal cord injury. 9. Allergies to cat dander and lactose. 10. Family history is noncontributory. 11. MAR was noted. 12. Case was discussed with RN. 13. Social history is negative. 14. Continue treatment per primary consultants. 15. Case was discussed with Dr. Hoyt. Subjective Constitutional: Denies: fever HEENT: Denies: coryza, congestion Respiratory: Denies: shortness of breath Cardiovascular: Denies: chest pain Gastrointestinal/Abdominal: Denies: nausea, vomiting Genitourinary: Denies: dysuria, hematuria Neurologic: Denies: headache Psychiatric: Denies: depression Skin: Denies: rash Hematologic: Denies: bleeding Musculoskeletal: Denies: pain Allergies: Coded Allergies: Cat Dander (Unverified Allergy, Unknown, Itching, 03/09/19) Uncoded Allergies: LACTOSE INTOLERANCE (Adverse Reaction, Severe, 06/05/14) FORMATION OF GAS Objective Vital Signs Last 24 Hour Vital Signs Date Time Temp Pulse Resp B/P (MAP) Pulse Ox O2 Delivery O2 Flow Rate FiO2 03/18/19 12:00 98.6 79 20 122/78 (93) 95 03/18/19 09:00 Room Air 03/18/19 08:00 99.8 79 21 128/76 (93) 99 03/18/19 04:00 98.6 82 20 126/84 (98) 97 03/18/19 00:00 98.4 78 16 127/85 (99) 93 03/17/19 21:00 Room Air 03/17/19 20:00 99.1 77 18 130/83 (99) 95 03/17/19 16:00 98.0 85 18 135/90 (105) 97 Height (Feet): 6 Height (Inches): 5.00 Weight (Pounds): 233 General Appearance: no acute distress HEENT: normocephalic, atraumatic, anicteric, mucous membranes moist Respiratory/Chest: lungs clear, normal breath sounds, no respiratory distress, no accessory muscle use Cardiovascular: normal rate, regular rhythm, no gallop/murmur, no JVD Abdomen: normal bowel sounds, soft, non tender, no organomegaly, non distended Genitourinary: other - no carpenter Extremities: other - left foot covered Skin: no rash Neurologic/Psychiatric: certified surgical technician II-XII grossly normal Lymphatic: no neck adenopathy Musculoskeletal: no effusion Objective MRI left foot: IMPRESSION: Findings highly suspicious for acute osteomyelitis of the fifth metatarsal head and shaft with destruction of the head of the fifth metatarsal, pathologic fracture and dislocation of the fifth MTP joint. Microbiology Date/Time Source Procedure Growth Status 03/10/19 20:50 Wound Gram Stain - Final Complete 03/10/19 20:50 Wound Culture - Final Streptococcus Pyogenes Grp A Staphylococcus Chromogenes Complete 03/09/19 22:40 Nasal Nares MRSA Culture - Final NO METHICILLIN RESISTANT STAPH AUREUS... Complete 03/14/19 13:00 Tissue AFB Specimen Processing Tissue - Final Resulted 03/14/19 13:00 Tissue Acid Fast Bacilli Smear - Final Resulted 03/14/19 13:00 Tissue Acid Fast Bacilli Culture Pending Resulted Labs Test 03/16/19 02:59 03/17/19 04:50 03/17/19 21:25 White Blood Count 5.8 K/UL (4.8-10.8) 6.4 K/UL (4.8-10.8) Red Blood Count 3.91 M/UL (4.70-6.10) 3.73 M/UL (4.70-6.10) Hemoglobin 12.6 G/DL (14.2-18.0) 12.1 G/DL (14.2-18.0) Hematocrit 36.7 % (42.0-52.0) 35.3 % (42.0-52.0) Mean Corpuscular Volume 94 FL (80-99) 95 FL (80-99) Mean Corpuscular Hemoglobin 32.2 PG (27.0-31.0) 32.3 PG (27.0-31.0) Mean Corpuscular Hemoglobin Concent 34.3 G/DL (32.0-36.0) 34.1 G/DL (32.0-36.0) Red Cell Distribution Width 11.9 % (11.6-14.8) 12.2 % (11.6-14.8) Platelet Count 168 K/UL (150-450) 146 K/UL (150-450) Mean Platelet Volume 6.5 FL (6.5-10.1) 7.4 FL (6.5-10.1) Neutrophils (%) (Auto) 63.8 % (45.0-75.0) 66.1 % (45.0-75.0) Lymphocytes (%) (Auto) 21.1 % (20.0-45.0) 19.6 % (20.0-45.0) Monocytes (%) (Auto) 9.9 % (1.0-10.0) 8.7 % (1.0-10.0) Eosinophils (%) (Auto) 3.8 % (0.0-3.0) 4.8 % (0.0-3.0) Basophils (%) (Auto) 1.4 % (0.0-2.0) 0.9 % (0.0-2.0) Sodium Level 138 MMOL/L (136-145) 137 MMOL/L (136-145) Potassium Level 3.6 MMOL/L (3.5-5.1) 3.5 MMOL/L (3.5-5.1) Chloride Level 101 MMOL/L (98-107) 101 MMOL/L (98-107) Carbon Dioxide Level 26 MMOL/L (21-32) 26 MMOL/L (21-32) Anion Gap 11 mmol/L (5-15) 10 mmol/L (5-15) Blood Urea Nitrogen 18 mg/dL (7-18) 21 mg/dL (7-18) Creatinine 1.8 MG/DL (0.55-1.30) 1.7 MG/DL (0.55-1.30) Estimat Glomerular Filtration Rate 41.2 mL/min (>60) 44.0 mL/min (>60) Glucose Level 93 MG/DL (74-106) 94 MG/DL (74-106) Calcium Level 9.2 MG/DL (8.5-10.1) 9.4 MG/DL (8.5-10.1) Phosphorus Level 4.6 MG/DL (2.5-4.9) 4.5 MG/DL (2.5-4.9) Magnesium Level 1.8 MG/DL (1.8-2.4) 1.8 MG/DL (1.8-2.4) Vancomycin Level Trough 23.7 ug/mL (5.0-12.0) 16.2 ug/mL (5.0-12.0) Laboratory Tests Test 03/17/19 21:25 Vancomycin Level Trough 16.2 ug/mL (5.0-12.0) H Current Medications Medications (Trade) Dose Ordered Sig/Fiona Route PRN Reason Start Time Stop Time Status Last Admin Dose Admin Acetaminophen (Tylenol) 650 mg Q4H PRN ORAL fever 03/09/19 18:30 04/08/19 18:29 Acetaminophen/ Hydrocodone Bitart ([place] 5/325) 1 tab Q4H PRN ORAL Mild Pain (Pain Scale 1-3) 03/16/19 12:00 03/23/19 11:59 03/18/19 10:30 Amoxicillin/ Clavulanate Potassium (Augmentin) 500 mg BID ORAL 03/18/19 09:00 03/25/19 08:59 03/18/19 08:28 Dextrose (Dextrose 50%) 25 ml Q30M PRN IV Hypoglycemia 03/09/19 18:30 04/08/19 18:29 Dextrose (Dextrose 50%) 50 ml Q30M PRN IV Hypoglycemia 03/09/19 18:30 04/08/19 18:29 Diphenhydramine HCl (Benadryl) 25 mg Q6H PRN ORAL Itching/Pruritis 03/09/19 18:30 04/08/19 18:29 03/17/19 22:31 Doxycycline Monohydrate (Doxycycline Monohydrate) 100 mg EVERY 12 HOURS ORAL 03/17/19 21:00 03/24/19 20:59 03/18/19 08:27 Econazole Nitrate (Spectazole) 1 applic DAILY TOPIC 03/11/19 17:00 04/10/19 16:59 03/18/19 08:28 Famotidine (Pepcid) 40 mg DAILY ORAL 03/10/19 09:00 04/09/19 08:59 03/18/19 08:27 Lorazepam (Ativan) 1 mg Q4H PRN ORAL For Anxiety 03/16/19 11:15 03/23/19 11:14 Morphine Sulfate (Morphine Sulfate) 2 mg Q4H PRN IVP Moderate Pain (Pain Scale 4-6) 03/16/19 12:00 03/23/19 11:59 Morphine Sulfate (Morphine Sulfate) 4 mg Q4H PRN IVP Severe Pain (Pain Scale 7-10) 03/16/19 12:00 03/23/19 11:59 03/18/19 06:47 Nicotine (Nicoderm) 1 patch Q24H TDERMAL 03/09/19 22:30 04/08/19 22:29 03/17/19 22:27 Ondansetron HCl (Zofran) 4 mg Q6H PRN IVP Nausea & Vomiting 03/09/19 18:30 04/08/19 18:29 Polyethylene Glycol (Miralax) 17 gm HSPRN PRN ORAL Constipation 03/09/19 18:30 04/08/19 18:29 Temazepam (Restoril) 15 mg HSPRN PRN ORAL Insomnia 03/16/19 21:00 03/23/19 20:59 Darren Patel MD Mar 18, 2019 14:08
--- NOTE | 2019-03-18 14:31 | NUR ---
RD ASSESSMENT & RECOMMENDATIONS SEE CARE ACTIVITY FOR COMPLETE ASSESSMENT DAILY ESTIMATED NEEDS: Needs based on Wound/ 97.6kg 25-30 kcals/kg 9117-3621 total kcals 1.2-1.5 g protein/kg 117-146 g total protein 25-30 mL/kg 0841-2495 total fluid mLs NUTRITION DIAGNOSIS: Increased protein and micronutrients need R/T wound healing as evidenced by ax of OM of left foot, s/p partial 5th ray amputation left foot. CURRENT DIET:REGULAR PO DIET RECOMMENDATIONS: Maintain regular diet ADDITIONAL RECOMMENDATIONS: * Wound healing: MVI x 1, Vit C 500mg QD Topher 1pkt BID added to tray * Snacks BID in b/w meals * Calibrated bedscale wt for accurate CBW * Monitor renal labs/ need for dietary restriction
[2019-03-18] MEDS ORDERED: HYDROcodone/Acetamin 10/325 tab ORAL SCH (15:15)
[2019-03-18 16:00] VITALS: BP 125/73
[2019-03-18] MEDS ORDERED: NORCO 10-325 T1 EACH ORAL (16:51)
[2019-03-18] MEDS ORDERED: DOCUSATE SODIU100 MG ORAL (16:52)
--- NOTE | 2019-03-18 17:30 | NUR ---
NURSE NOTES: Discharge instructions and prescription medications (x5 delivered from [facility]), reviewed with patient, verbalized understanding. RFA heplock discontinued, no active bleeding. All belongings (refused his cigarette pack and lighters), RW, prescription meds, and home medication (picked up from security in pharmacy), given to patient. Patient sent down to lobby via wearing left post op shoe, in stable condition. Discharged home at 1730.
[2019-03-18] MEDS ORDERED: Tubing IV Secondary IV ONE (17:34)
[2019-03-18] MEDS ORDERED: NS 275ml ONE (17:34)
--- NOTE | 2019-03-25 19:04 | Discharge Summary ---
Discharge Summary Hospital Course Date of Admission Mar 09, 2019 at 17:15 Date of Discharge Mar 18, 2019 at 17:35 Admitting Diagnosis Osteomylitis of foot HPI Florentin Briggs is a 43 year old male who was admitted on Mar 09, 2019 at 17:15 for Osteomylitis Of Foot Consultations Surgery, ID, POdiatry Hospital Course 43 y/o M admitted due to foot ulcer and pain, pt found to have osteomyelitis of the fifth metatarsal head, started on IV antibiotics. MRI of L foot with findings highly suspicious for acute osteomyelitis of 5th metatarsal head and shaft with destruction, pathological fracture and dislocation of 5th MTP joint. Pt evaluated by podiatry and surgery service, had L 5th partial ray amputation, with bone biopsy and complex wound closure. Pathological report with clear margins with no definite gross evidence of osteomyelitis, discussed with ID, antibiotics changed to doxycycline and augmentin for 7 more days. Pt will follow up with podiatry in 7 days for suture removal. Pt also treated for acute renal failure, improved with hydration, will follow up with PCP in 7 days for repeat basic metabolic panel. On discharge, pt is hemodynamically stable and tolerating PO diet. Discharge Medications New Medications: Doxycycline Monohydrate* (Doxycycline Monohydrate*) 100 Mg Capsule 100 MG ORAL Q12H for 7 Days, #14 CAP 0 Refills Amoxicillin/Potassium Clav 500-125 Mg Tab* (Amox Tr-K Clv 500-125 Mg Tab*) 1 Each Tablet 500 MG ORAL BID for 7 Days, #14 TAB Hydrocodone Bit/Acetaminophen 5-325* ([place] 5-325*) 1 Each Tablet 1 TAB ORAL Q4H PRN for 5 Days, #20 TAB Continued Medications: Docusate Sodium* (Docusate Sodium*) 100 Mg Capsule 100 MG ORAL DAILY for 14 Days, #14 CAP (This prescription has been renewed) Hydrocodone Bit/Acetaminophen 10-325* ([place] 10-325*) 1 Each Tablet 1 TAB ORAL Q6H PRN for Severe Pain (Pain Scale 7-10), #15 TAB 0 Refills (This prescription has been renewed) PRN PAIN No Known Medications* (NKM - No Known Medications*) . 0 ., 0 Refills (This prescription has been renewed) Discharge Condition Upon Discharge: stable Discharge Disposition Patient was discharged to home Discharge Diagnoses: (1) Osteomyelitis of fifth toe of left foot (2) ANTHONY (acute kidney injury) (3) Cellulitis (4) Dehydration (5) Abdominal pain Discharge Instructions Discharge Instructions Follow up with: Dr. Enmanuel Kim 1 week, PCP 1 week with repeat BMP Call MD/Return to Hospital if: uncontrolled pain, bleeding; fevers Activity: other - LLE weight bearing to heel For Surgical Patients Dressing Care: keep dry and clean Contact your physician for: bleeding, pain, yellowish discharge in the op. site Savi Vasquez MD Mar 25, 2019 19:04
== END 2019-03-18 17:35 | disposition home or self-care (01) | DRG 305 ==
LOC: EMR 15:26 → 4E 17:15 → EDBEDREQ 17:49 → 3E 03-14 14:43
PROC: 0Y6N0ZF Detachment at Left Foot, Partial 5th Ray, Open Approach (ICD-10-PCS; principal; 2019-03-14 11:30)
DX: M86.172 Other acute osteomyelitis, left ankle and foot (principal); N17.9 Acute kidney failure, unspecified; K85.90 Acute pancreatitis without necrosis or infection, unspecified; M84.475A Pathological fracture, left foot, initial encounter for fracture; G62.9 Polyneuropathy, unspecified; K74.60 Unspecified cirrhosis of liver; L03.116 Cellulitis of left lower limb; L97.526 Non-pressure chronic ulcer of other part of left foot with bone involvement without evidence of necrosis; B35.3 Tinea pedis; F17.200 Nicotine dependence, unspecified, uncomplicated; I10 Essential (primary) hypertension; T14.90XS Injury, unspecified, sequela; W17.89XS Other fall from one level to another, sequela; E86.0 Dehydration
CPT/HCPCS: 36415; 71045; 80048; 80053; 80202; 80307; 81001; 82570; 83036; 83735; 84100; 84300; 85025; 85610; 85651; 85730; 86140; 86850; 86900; 86901; 87070; 87075; 87081; 87116; 87205; 89050; 93005; 94003; 94150; 96365; 99285; A4246; A9585; J2250

== ENCOUNTER 2019-06-14 08:15 | Emergency (ER) | payer OTHER ==
[~2019-06-14] VITALS: Ht 195.6 cm; Wt 108.9 kg
[~2019-06-14 08:15] MED LIST changes: +AMOX TR-K CLV1 EAC1 ORAL; +DOCUSATE SODIU100 MG ORAL; +DOXYCYCLINE MO100 MG ORAL; +NKM; +NORCO 10-325 T1 EACH ORAL
--- NOTE | 2019-06-14 08:25 | NUR ---
ED Nurse Note: Pt came in from home due to L ankle swelling and pain. He twisted his L ankle accidentally 1 month prior and has been experiencing symptoms since then. Pt has hx of neuropathy pain and had his L 5th toe amputated. Pain 7-8/10, get worse with movement. Swelling goes down when pt elevates his leg. AOOx4, vital signs stable at this time. Will cont to monitor.
--- NOTE | 2019-06-14 08:40 | Emergency Room Report ---
History of Present Illness General Chief Complaint: Lower Extremity Injury Source: Patient Present Illness HPI 43-year-old male history of osteomyelitis of the left foot,neuropathy presents with swelling of the left ankle, and achy pain mild, patient tripped on a brick , he turned his ankle over about 4 weeks ago, he has been having swelling that comes and goes, worsened with prolonged ambulation alleviated with rest and foot elevation severity is mild, no fever chills chest pain shortness of breath , patient was worried. 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 Hx Cerebrovascular Accident: No Hx Seizures: No Hx Peripheral Neuropathy: Yes Hx Spinal Cord Injury: Yes - JUL 13, 2012 WORK INJURY Hx Numbness: Yes - BLE Review of Systems All Other Systems: negative except mentioned in HPI Physical Exam Vital Signs Date Time Temp Pulse Resp B/P (MAP) Pulse Ox O2 Delivery O2 Flow Rate FiO2 06/14/19 08:23 98.2 94 15 150/100 (117) 96 Room Air Sp02 EP Interpretation: reviewed, normal General Appearance: well appearing, no apparent distress, alert Head: normocephalic, atraumatic Eyes: bilateral eye PERRL, bilateral eye EOMI ENT: uvula midline, moist mucus membranes Neck: supple, thyroid normal, supple/symm/no masses Respiratory: lungs clear, no respiratory distress, no retraction, no accessory muscle use Cardiovascular #1: normal peripheral pulses, regular rate, rhythm, no edema, no gallop, no murmur Musculoskeletal: other - Left lower externally: 2+ PT, missing fifth toe, swelling around the medial and lateral malleolus, with some old ecchymosis, anterior posterior drawer negative, 5 out of 5 plantar dorsiflexion of the foot , sensation reduced diffusely Neurologic: alert, oriented x3 Psychiatric: mood/affect normal Skin: no rash, warm/dry Procedures Splinting Splinting : Consent: Verbal Location: Left foot Hand-Made Type: plaster Splint: poserior short Pre-Proc Neuro Vasc Exam: normal Post-Proc Neuro Vasc Exam: normal Patient Tolerated: Well Complications: None Medical Decision Making Diagnostic Impression: Primary Impression: Metatarsal bone fracture Qualified Codes: S92.342A - Displaced fracture of fourth metatarsal bone, left foot, initial encounter for closed fracture ER Course Patient with foot pain, ddx foot sprain, foot fracture, ankle sprain. Patient with fourth metatarsal fracture, posterior splint applied, crutches given, disposition home with return precautions follow-up with Ortho Other X-Ray Diagnostic Results Other X-Ray Diagnostic Results #1: X-Ray ordered: Left Foot # of Views/Limited Vs Complete: 3 View Indication: Pain EP Interpretation: Yes Interpretation: other - 4th metatarsal fracture Impression: Other - 4th metatarsal fracture Electronically Signed by: Yogi Noe MD Other X-Ray Diagnostic Results #2: # of Views/Limited Vs Complete: 3 View Indication: Pain EP Interpretation: Yes Interpretation: other - 4th metatarsal fracture Impression: Other - 4th metatarsal fracture Electronically Signed by: Yogi Noe MD Last Vital Signs Date Time Temp Pulse Resp B/P (MAP) Pulse Ox O2 Delivery O2 Flow Rate FiO2 06/14/19 08:23 98.2 94 15 150/100 (117) 96 Room Air Disposition: HOME, SELF-CARE Condition: Stable Scripts Naproxen* (NAPROSYN*) 250 Mg Tablet 250 MG ORAL BID PRN for For Pain, #20 TAB 0 Refills Prov: Yogi Noe MD 06/14/19 Referrals: [facility]REFERRING (PCP) [facility] Patient Instructions: Metatarsal Fracture Additional Instructions: The patient was provided with discharge instructions, notified to follow-up with a primary care doctor and or specialist in the next 24-48 hours, and to return to the ED if they have worsening of their symptoms. Please note that this report is being documented using [email or web address] technology. This can lead to erroneous entry secondary to incorrect interpretation by the dictating instrument. Yogi Noe MD Jun 14, 2019 08:39
--- NOTE | 2019-06-14 08:51 | NUR ---
ED Nurse Note: X-ray tech at bedside for imaging.
--- NOTE | 2019-06-14 09:17 | Diagnostic Imaging Report ---
Indication: Left ankle pain Technique: 3 views of the left ankle Comparison: none Findings: There is soft tissue swelling over the lateral malleolus. No acute fractures. No dislocations. There is evidence of prior amputation of the proximal fifth metatarsal. The joint spaces are preserved. There is some chronic appearing osseous irregularity of the dorsal midfoot Impression: No acute bony trauma Soft tissue swelling
--- NOTE | 2019-06-14 09:20 | Diagnostic Imaging Report ---
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 There is some heterotopic ossification distal to this noted. There is an ununited fracture of the fourth metatarsal neck. This is displaced by one bone width. There is extensive periosteal reaction surrounding the fourth metatarsal shaft. There is also periosteal reaction along the shaft of the second metatarsal, without definite fracture line demonstrated. There is pes planus deformity. There is a slight degree of fragmentation in the dorsum of the midfoot. This appears corticated and chronic. There is a small plantar spur. Impression: Ununited but not acute fracture of the fourth metatarsal. Periosteal reaction along the shaft of the second metatarsal without definite fracture line or deformity, likely representing a stress fracture but could also indicate an occult or old healed fracture. Above findings may be a manifestation of early Charcot type changes. Evidence of prior fifth toe amputation
--- NOTE | 2019-06-14 09:31 | NUR ---
ED Nurse Note: Posterior splint applied on L ankle by NICOLÁS Hastings. Pt tolerates well.
[2019-06-14] MEDS ORDERED: NAPROXEN250 MG ORAL (09:52)
[2019-06-14 09:58] VITALS: BP 150/98
--- NOTE | 2019-06-14 09:58 | NUR ---
ER DISCHARGE NOTE: Patient is cleared to be discharged per ERMD, pt is aox4, on room air, with stable vital signs. Pain 4/10 at this time. pt was given dc and prescription instructions, pt was able to verbalize understanding, pt id band removed. pt is able to ambulate with steady gait, was able to use crutches comfortably. pt took all belongings.
== END 2019-06-14 09:58 | disposition home or self-care (01) ==
LOC: EMR 08:20
DX: S92.342A Displaced fracture of fourth metatarsal bone, left foot, initial encounter for closed fracture (principal); I10 Essential (primary) hypertension; G62.9 Polyneuropathy, unspecified; F17.200 Nicotine dependence, unspecified, uncomplicated; Z91.048 Other nonmedicinal substance allergy status; E73.9 Lactose intolerance, unspecified; W01.0XXA Fall on same level from slipping, tripping and stumbling without subsequent striking against object, initial encounter; Y92.9 Unspecified place or not applicable
CPT/HCPCS: 29515; 99283

== ENCOUNTER 2019-12-25 16:40 | Emergency (ER) | payer MEDICAID, OTHER ==
[~2019-12-25] VITALS: Ht 195.6 cm; Wt 113.4 kg
[2019-12-25 16:40] VITALS: BP 134/81
[~2019-12-25 16:40] MED LIST changes: +NAPROXEN250 MG ORAL
--- NOTE | 2019-12-25 16:40 | NUR ---
ED Nurse Note: pt waled in to ED for C/O cough since october. pt reports having fever but temp at triage is 98.1 pt also reports unable to hold food down
--- NOTE | 2019-12-25 17:28 | NUR ---
ED Nurse Note: cxr done at bedside. blood sent to lab
[2019-12-25 17:42] LABS: BASOPHILS % (AUTO) 1.7 % (0.0-2.0); EOSINOPHILS % (AUTO) 1.1 % (0.0-3.0); HEMATOCRIT 45.8 % (42.0-52.0); HEMOGLOBIN 15.2 G/DL (14.2-18.0); LYMPHOCYTES % (AUTO) 19.4 % (20.0-45.0); MEAN CORPUSCULAR VOLUME 98 FL (80-99); MONOCYTES % (AUTO) 8.2 % (1.0-10.0); NEUTROPHILS % (AUTO) 69.5 % (45.0-75.0); PLATELET COUNT 158 K/UL (150-450); RED BLOOD COUNT 4.67 M/UL (4.70-6.10); RED CELL DISTRIBUTION WIDTH 13.5 % (11.6-14.8)
[2019-12-25 17:54] LABS: ANION GAP 26 mmol/L (5-15); BLOOD UREA NITROGEN 10 mg/dL (7-18); CALCIUM 9.4 MG/DL (8.5-10.1); CARBON DIOXIDE 18 MMOL/L (21-32); CHLORIDE 94 MMOL/L (98-107); CREATININE 1.1 MG/DL (0.55-1.30); POTASSIUM 3.9 MMOL/L (3.5-5.1); SODIUM 138 MMOL/L (136-145)
--- NOTE | 2019-12-25 17:54 | Diagnostic Imaging Report ---
EXAM: XR Chest, 1 View CLINICAL HISTORY: PAIN TECHNIQUE: Frontal view of the chest. COMPARISON: Chest radiograph On 03/09/2019 FINDINGS: Hardware: None. Lungs/pleura: Normal. No focal consolidation. No pleural effusion or pneumothorax. Heart/mediastinum: Normal. No cardiomegaly. Soft tissues: Unremarkable. Bones: No acute fracture. Upper abdomen: Normal. IMPRESSION: No acute disease identified.
[2019-12-25 18:04] LABS: ALANINE AMINOTRANSFERASE 182 U/L (12-78); ALBUMIN 4.4 G/DL (3.4-5.0); ALKALINE PHOSPHATASE 57 U/L (46-116); AMYLASE 65 U/L (25-115); ASPARTATE AMINO TRANSFERASE 197 U/L (15-37); BILIRUBIN,TOTAL 1.5 MG/DL (0.2-1.0)
[2019-12-25 18:05] LABS: BILIRUBIN,DIRECT 0.6 MG/DL (0.0-0.3)
--- NOTE | 2019-12-25 18:10 | Emergency Room Report ---
History of Present Illness General Chief Complaint: Flu Like Symptoms Source: Patient (Irene Mattson) Present Illness HPI 44 YO male presents to the ED c/o having a non-productive Cough x 2 months. He is also reporting progressive onset of nausea and decreased appetite and weight loss x 2 weeks. Pt. denies vomiting but reports spitting sputum frequently. He reports 3/10 in severity. Pt. reports having fevers off and on. He reports he has not measured his temperature. He denies abdominal swelling or swelling of the lower extremities. He denies blood in his stool or black tarry stools. He denies hx of hepatitis. He reports he used to drink regularly 5-6 drinks /day but stopped once he began feeling sick. He reports he began having GI issues after having nerve damage after a back injury. He states he previously was on Prilosec (Irene Mattson) Allergies: Coded Allergies: Cat Dander (Unverified Allergy, Unknown, Itching, 03/09/19) Uncoded Allergies: LACTOSE INTOLERANCE (Adverse Reaction, Severe, 06/05/14) FORMATION OF GAS COVID-19 Screening Contact w/high risk pt: No Recent Travel to affected area: No Experienced COVID-19 symptoms?: Yes COVID-19 symptoms experienced: Cough (Irene Mattson) Patient History Past Medical History: see triage record, other - hx of pancreatitis. 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 Hx Cerebrovascular Accident: No Hx Seizures: No Hx Peripheral Neuropathy: Yes Hx Spinal Cord Injury: Yes - JUL 13, 2012 WORK INJURY Hx Numbness: Yes - BLE (Irene Mattson) Review of Systems All Other Systems: negative except mentioned in HPI (Irene Mattson) Physical Exam Vital Signs Date Time Temp Pulse Resp B/P (MAP) Pulse Ox O2 Delivery O2 Flow Rate FiO2 12/25/19 16:33 98.1 125 20 134/81 (98) 97 Room Air Sp02 EP Interpretation: reviewed, normal General Appearance: no apparent distress, alert, GCS 15, non-toxic Head: normocephalic, atraumatic Eyes: bilateral eye normal inspection, bilateral eye PERRL ENT: hearing grossly normal, normal voice Neck: full range of motion Respiratory: lungs clear, normal breath sounds, speaking full sentences Cardiovascular #1: regular rate, rhythm, no edema Gastrointestinal: normal bowel sounds, non tender, soft, non-distended, no guarding, tenderness - epigastric and RUQ TTP, no distention. abdomen is soft. Pt. has some mild LLQ ttp. Negative mcburneys. Genitourinary: normal inspection, no CVA tenderness Musculoskeletal: normal range of motion, gait/station normal Neurologic: alert, motor strength/tone normal, oriented x3, sensory intact, responsive, speech normal Psychiatric: judgement/insight normal Skin: normal color (Irene Mattson) Medical Decision Making PA Attestation Dr. Gardner is my supervising Physician whom patient management has been discussed with. (Irene Mattson) Diagnostic Impression: Primary Impression: Upper respiratory infection Qualified Codes: J06.9 - Acute upper respiratory infection, unspecified Additional Impression: Gastritis Qualified Codes: K29.20 - Alcoholic gastritis without bleeding ER Course 44 YO male presents to the ED c/o having a non-productive Cough x 2 months. He is also reporting progressive onset of nausea and decreased appetite and weight loss x 2 weeks. Pt. denies vomiting but reports spitting sputum frequently. He reports 3/10 in severity. Pt. reports having fevers off and on. He reports he has not measured his temperature. He denies abdominal swelling or swelling of the lower extremities. He denies blood in his stool or black tarry stools. He denies hx of hepatitis. He reports he used to drink regularly 5-6 drinks /day but stopped once he began feeling sick. He reports he began having GI issues after having nerve damage after a back injury. He states he previously was on Prilosec. Ddx considered but are not limited to Diverticulitis, acute appy, diarrhea,UC, PUD, GE, pancreatitis, gallstone, COVID-19, PNA, CHF, Acid reflux just to name a few. Vital signs: Pt. is tachycardic at HR 125, otherwise the VS are WNL, pt. is afebrile. HR Improved after fluids and medications. H&PE are most consistent with ORDERS: - CBC: - CMP -Lipase: - UA ED INTERVENTIONS: -- 1000NS, --Zofran 4mg IV -- Pepcid 20mg IV Disposition: Pt. signed out to Dr. Gardner pending CT results. (Irene Mattson) ER Course Hospital Course 44-year-old male presents with abdominal pain, vomiting, cough Patient initially seen and evaluated by LISA Mattson; please see her note for full history and physical Clinical course Labs - no leukocytosis, LFTs elevated, lipase ok CXR - no acute process CT scan shows no stones in gallbladder, some sludge Upon reassessment, patient states pain has improved. notes h/o alcohol use. safe for discharge with close outpatient followup. does not have PMD. i'll provide referrals I feel this is a highly complex case requiring extensive working including EKG/ Rhythm strip, Xray/CT/US, Blood/urine lab work, repeat exams while in ED, and administration of strong opiates/narcotics for pain control, admission to hospital or close patient follow up. Diagnosis - URI, gastritis Stable and discharged to home with Rx Pepcid, Zofran. Followup with PMD. Return to ED if symptoms recur or worsen Labs Test 12/25/19 17:24 12/25/19 18:35 White Blood Count 5.0 K/UL (4.8-10.8) Red Blood Count 4.67 M/UL (4.70-6.10) Hemoglobin 15.2 G/DL (14.2-18.0) Hematocrit 45.8 % (42.0-52.0) Mean Corpuscular Volume 98 FL (80-99) Mean Corpuscular Hemoglobin 32.5 PG (27.0-31.0) Mean Corpuscular Hemoglobin Concent 33.2 G/DL (32.0-36.0) Red Cell Distribution Width 13.5 % (11.6-14.8) Platelet Count 158 K/UL (150-450) Mean Platelet Volume 8.7 FL (6.5-10.1) Neutrophils (%) (Auto) 69.5 % (45.0-75.0) Lymphocytes (%) (Auto) 19.4 % (20.0-45.0) Monocytes (%) (Auto) 8.2 % (1.0-10.0) Eosinophils (%) (Auto) 1.1 % (0.0-3.0) Basophils (%) (Auto) 1.7 % (0.0-2.0) Sodium Level 138 MMOL/L (136-145) Potassium Level 3.9 MMOL/L (3.5-5.1) Chloride Level 94 MMOL/L (98-107) Carbon Dioxide Level 18 MMOL/L (21-32) Anion Gap 26 mmol/L (5-15) Blood Urea Nitrogen 10 mg/dL (7-18) Creatinine 1.1 MG/DL (0.55-1.30) Estimat Glomerular Filtration Rate > 60 mL/min (>60) Glucose Level 68 MG/DL (74-106) Calcium Level 9.4 MG/DL (8.5-10.1) Total Bilirubin 1.5 MG/DL (0.2-1.0) Direct Bilirubin 0.6 MG/DL (0.0-0.3) Aspartate Amino Transf (AST/SGOT) 197 U/L (15-37) Alanine Aminotransferase (ALT/SGPT) 182 U/L (12-78) Alkaline Phosphatase 57 U/L (46-116) Total Protein 8.6 G/DL (6.4-8.2) Albumin 4.4 G/DL (3.4-5.0) Globulin 4.2 g/dL Albumin/Globulin Ratio 1.0 (1.0-2.7) Amylase Level 65 U/L (25-115) Lipase 204 U/L (73-393) Urine Color Brown Urine Appearance Clear Urine pH 6 (4.5-8.0) Urine Specific Delong 1.025 (1.005-1.035) Urine Protein 3+ (NEGATIVE) Urine Glucose (UA) Negative (NEGATIVE) Urine Ketones 4+ (NEGATIVE) Urine Blood 2+ (NEGATIVE) Urine Nitrite Negative (NEGATIVE) Urine Bilirubin 1+ (NEGATIVE) Urine Ictotest Positive (NEGATIVE) Urine Urobilinogen 4 MG/DL (0.0-1.0) Urine Leukocyte Esterase 1+ (NEGATIVE) Urine RBC 0-2 /HPF (0 - 0) Urine WBC 0-2 /HPF (0 - 0) Urine Squamous Epithelial Cells None /LPF (NONE/OCC) Urine Bacteria Moderate /HPF (NONE) Urine Mucus Many /LPF (NONE/OCC) (Jerry Gardner MD) Chest X-Ray Diagnostic Results Chest X-Ray Diagnostic Results : Chest X-Ray Ordered: Yes # of Views/Limited/Complete: 1 View Indication: Other - Cough x 2 months EP Interpretation: Yes PA Xray: Interpretation reviewed, by supervising MD, and agrees with findings. Interpretation: no consolidation, no effusion, no pneumothorax, no acute cardiopulmonary disease Impression: No acute disease Electronically Signed by: Irene Mattson PA-C (Irene Mattson) Chest X-Ray Diagnostic Results : Chest X-Ray Ordered: Yes # of Views/Limited/Complete: 1 View Indication: Other - cough EP Interpretation: Yes Interpretation: no consolidation, no effusion, no pneumothorax, no acute cardiopulmonary disease Impression: No acute disease Electronically Signed by: Electronically signed by Jerry Gardner MD (Jerry Gardner MD) CT/MRI/US Diagnostic Results CT/MRI/US Diagnostic Results : Imaging Test Ordered: CT A/P Impression TECHNIQUE: Axial computed tomography images of the abdomen and pelvis with intravenous contrast. CTDI is 12.0 mGy and DLP is 706.7 mGy-cm. One or more of the following dose reduction techniques were used: automated exposure control, adjustment of the mA and/or kV according to patient size, use of iterative reconstruction technique. COMPARISON: CT abdomen/pelvis on 03/13/2015 FINDINGS: Lung bases: Unremarkable. No mass. No consolidation. ABDOMEN: Liver: Hepatic steatosis. Hepatomegaly. Gallbladder and bile ducts: Slightly hyperdense material within the gallbladder may represent artifact versus stones/sludge. No ductal dilation. Pancreas: Unremarkable. No mass. No ductal dilation. Spleen: Mild splenomegaly. Adrenals: Unremarkable. No mass. Kidneys and ureters: No hydronephrosis or obstructing stone. Small hypodensities in the kidneys are too small to definitively characterize. Stomach and bowel: Evaluation of the stomach is limited by underdistention. Diverticulosis without evidence of diverticulitis. Under distention of the colon limits evaluation. No bowel obstruction. PELVIS: Appendix: Normal appendix. Bladder: Prominence of the bladder wall is nonspecific. Please correlate with urinalysis to evaluate for cystitis. Reproductive: Unremarkable as visualized. ABDOMEN and PELVIS: Intraperitoneal space: Unremarkable. No free air. No significant fluid collection. Bones/joints: Mild degenerative changes of the spine. Stable mild chronic anterior wedging of the T11 vertebral body. No dislocation. Soft tissues: Small fat-containing umbilical hernia. Small fat- containing inguinal hernias. Vasculature: Mild atherosclerotic changes of the vasculature. No aortic aneurysm or dissection. Lymph nodes: Unremarkable. No enlarged lymph nodes. IMPRESSION: Prominence of the bladder wall is nonspecific. Please correlate with urinalysis to evaluate for cystitis. No other acute abnormality in the abdomen or pelvis. (Jerry Gardner MD) Last Vital Signs Date Time Temp Pulse Resp B/P (MAP) Pulse Ox O2 Delivery O2 Flow Rate FiO2 12/25/19 16:40 125 20 Room Air 12/25/19 16:40 98.1 134/81 97 (Irene Mattson) Status: improved (Jerry Gardner MD) Disposition: HOME, SELF-CARE Condition: Stable Signed Out To: Dr. Gardner (Irene Mattson) Scripts Ondansetron Odt* (ZOFRAN ODT*) 4 Mg Tab.rapdis 4 MG BC EVERY 6 HOURS PRN for Nausea & Vomiting, #20 TAB 0 Refills Prov: Jerry Gardner MD 12/25/19 Famotidine* (Pepcid 20mg tablet*) 20 Mg Tablet 20 MG ORAL DAILY, #30 TAB 0 Refills Prov: Jerry Gardner MD 12/25/19 Referrals: NOT CHOSEN [facility]/,REFERRING (PCP) Irene Mattson December 25, 2019 18:10 Jerry Gardner MD December 25, 2019 20:24
[2019-12-25 18:13] VITALS: BP 134/82
[2019-12-25] MEDS ORDERED: Omnipaque-300 100ml vial INJ PRN (18:15)
[2019-12-25] MEDS ORDERED: Morphine Sulfate 4mg/ml Inj (IV USE ONLY) IVP ONE (18:30)
--- NOTE | 2019-12-25 18:40 | NUR ---
ED Nurse Note: UA SENT to lab. patien taken to CT
[2019-12-25 18:48] LABS: APPEARANCE,URINE CLEAR; BILIRUBIN, URINE 1+ (NEGATIVE); COLOR,URINE BROWN; GLUCOSE, URINE (UA) NEGATIVE (NEGATIVE); KETONES,URINE 4+ (NEGATIVE); LEUKOCYTE ESTERASE ,URINE 1+ (NEGATIVE); NITRITE,URINE NEGATIVE (NEGATIVE); PH,URINE 6 (4.5-8.0); PROTEIN,URINE 3+ (NEGATIVE); UROBILINOGEN,URINE 4 MG/DL (0.0-1.0)
--- NOTE | 2019-12-25 18:53 | NUR ---
ED Nurse Note: patient came back from CT.
--- NOTE | 2019-12-25 19:00 | Diagnostic Imaging Report ---
EXAM: CT Abdomen and Pelvis With Intravenous Contrast CLINICAL HISTORY: PAIN TECHNIQUE: Axial computed tomography images of the abdomen and pelvis with intravenous contrast. CTDI is 12.0 mGy and DLP is 706.7 mGy-cm. One or more of the following dose reduction techniques were used: automated exposure control, adjustment of the mA and/or kV according to patient size, use of iterative reconstruction technique. COMPARISON: CT abdomen/pelvis on 03/13/2015 FINDINGS: Lung bases: Unremarkable. No mass. No consolidation. ABDOMEN: Liver: Hepatic steatosis. Hepatomegaly. Gallbladder and bile ducts: Slightly hyperdense material within the gallbladder may represent artifact versus stones/sludge. No ductal dilation. Pancreas: Unremarkable. No mass. No ductal dilation. Spleen: Mild splenomegaly. Adrenals: Unremarkable. No mass. Kidneys and ureters: No hydronephrosis or obstructing stone. Small hypodensities in the kidneys are too small to definitively characterize. Stomach and bowel: Evaluation of the stomach is limited by underdistention. Diverticulosis without evidence of diverticulitis. Under distention of the colon limits evaluation. No bowel obstruction. PELVIS: Appendix: Normal appendix. Bladder: Prominence of the bladder wall is nonspecific. Please correlate with urinalysis to evaluate for cystitis. Reproductive: Unremarkable as visualized. ABDOMEN and PELVIS: Intraperitoneal space: Unremarkable. No free air. No significant fluid collection. Bones/joints: Mild degenerative changes of the spine. Stable mild chronic anterior wedging of the T11 vertebral body. No dislocation. Soft tissues: Small fat-containing umbilical hernia. Small fat- containing inguinal hernias. Vasculature: Mild atherosclerotic changes of the vasculature. No aortic aneurysm or dissection. Lymph nodes: Unremarkable. No enlarged lymph nodes. IMPRESSION: Prominence of the bladder wall is nonspecific. Please correlate with urinalysis to evaluate for cystitis. No other acute abnormality in the abdomen or pelvis.
--- NOTE | 2019-12-25 19:10 | NUR ---
HAND-OFF: Report given to Jenn VAZ Endorsed all plan of care.
--- NOTE | 2019-12-25 19:25 | NUR ---
ED Nurse Note: Recieved report to resume care, pt in bed resting quietly, recently medicated, meds slightly effective and pain level decreased, pt waiting to speak with md for further disposition, pt has patent saline lock, nad or changes noted, will resume care as ordered and continue to closely monitor.
[2019-12-25 19:50] VITALS: BP 141/76
[2019-12-25] MEDS ORDERED: ONDANSETRON ODT4 MG BC (19:52)
[2019-12-25] MEDS ORDERED: FAMOTIDINE20 MG ORAL (19:52)
[2019-12-25 20:05] VITALS: BP 141/76
--- NOTE | 2019-12-25 20:05 | NUR ---
ER DISCHARGE NOTE: Patient is cleared to be discharged per ERMD, pt is aox4, on room air, with stable vital signs. pt was given dc and prescription instructions, pt was able to verbalize understanding, pt id band and iv site removed without complications. pt is able to ambulate with steady gait. pt took all belongings.
== END 2019-12-25 20:05 | disposition home or self-care (01) ==
LOC: EDBD 16:40 → EMR 16:54
DX: J06.9 Acute upper respiratory infection, unspecified (principal); K29.20 Alcoholic gastritis without bleeding; R05 Cough; I10 Essential (primary) hypertension; G90.9 Disorder of the autonomic nervous system, unspecified; R00.0 Tachycardia, unspecified
CPT/HCPCS: 36415; 71045; 74177; 80053; 81003; 82150; 82248; 83690; 85025; 87086; 96361; 96374; 96375; J2270; J2405; J7030; Q9967; S0028; Z7502; 99284